=== PATIENT | female | born 1935 | race Caucasian/White ===

== ENCOUNTER → 2017-02-14 | Outpatient (CLI) | payer MEDICARE, OTHER | DX: M25.571 Pain in right ankle and joints of right foot (principal) ==

== ENCOUNTER 2017-03-04 08:35 | Day surgery (SDC) | payer MEDICARE, OTHER ==
[2017-03-04] VITALS (8 sets, daily range): BP systolic 136–175; BP diastolic 51–84
[~2017-03-04] VITALS: Ht 165.1 cm; Wt 93.0 kg
[2017-03-04] MEDS ORDERED: LEVO100T7 PO (08:45)
[2017-03-04] MEDS ORDERED: LATA2.5D5 OU (08:45)
--- NOTE | 2017-03-04 08:54 | ED Chest Pain ---
General Chief Complaint: Chest Pain Stated Complaint: CHEST PAIN Nursing Triage Note: AMBULATED TO ROOM [address] ROBERTS OFFICE. TOLD TO COME OUT HERE BECAUSE SHE MIGHT BE HAVING A HEART ATTACK. PT STATES SHE WOKE UP THIS AM WITH LEFT ARM PAIN/NUMBESS ET RIGHT JAW PAIN. DENIES CHEST PAIN. STATES IT HURTS TO SWALLOW AND HAD SOME NAUSEA THIS AM. Nursing Sepsis Screen: No Definite Risk Source: patient, family (son-in-law) Exam Limitations: no limitations History of Present Illness Time seen by provider: 08:47 Initial Comments Patient presents with her son-in-law from home where she started having chest pain in her left shoulder which radiated to her right jaw this morning at 5:00. It is mild in nature and been going on constantly. It does not radiate anywhere else. She is not having any nausea or diaphoresis. She has no history of heart disease. She does have hypothyroidism which she takes her thyroid medicine for. She does not smoke drink or use any kind of drugs. She does not have known blood pressure problems. Her doctor is Dr. MONTESINOS who found a heart murmur and had set her up for an echocardiogram but has not received yet. Allergies and Home Medications Allergies Coded Allergies: nut - unspecified (Verified Allergy, Severe, HIVES, EDEMA, 03/04/17) Home Medications Latanoprost 2.5 Ml Drops, for 90 Days, (Reported) Levothyroxine Sodium 100 Mcg Tablet, for 90 Days, (Reported) Review of Systems Constitutional: No chills, No diaphoresis, No fever, No malaise EENTM: No Blurred Vision, No Double Vision Respiratory: Denies Cough, Denies Shortness of Air Cardiovascular: See HPI, Denies Edema, Denies Irregular Heart Rate, Denies Lightheadedness, Denies Palpitations, Denies Syncope Gastrointestinal: Denies Abdominal Pain, Denies Constipated, Denies Nausea Genitourinary: Denies Burning, Denies Discharge Musculoskeletal: back pain (chronic), No joint pain Skin: No pruritus, No rash Psychiatric/Neurological: Denies Headache, Denies Numbness Past Gjccmiy-Ykhvec-Egxsta Hx Patient Social History Alcohol Use: Denies Use Recreational Drug Use: No Smoking Status: Never a Smoker Recent Foreign Travel: No Contact w/Someone Who Travel: No Recent Infectious Disease Expo: No Surgeries Surgeries: Section, Hysterectomy, Orthopedic Cardiovascular Cardiac Disorders: Heart Murmur Endocrine Endocrine Disorders: Hypothyroidsim HEENT HEENT Disorders: Glaucoma Hearing Impairment: Hard of Hearing Physical Exam Vital Signs Vital Sign - Last 12Hours 03/04/17 03/04/17 08:35 08:56 Temp 98.0 Pulse 55 Resp 18 B/P (MAP) 173/65 Pulse Ox 62 O2 Delivery Nasal Cannula O2 Flow Rate 2.00 Capillary Refill : Less Than 3 Seconds General Appearance: No Apparent Distress, WD/WN HEENT: PERRL/EOMI, Pharynx Normal Neck: Normal Inspection, Supple Respiratory: Chest Non Tender, Lungs Clear, Normal Breath Sounds, No Accessory Muscle Use Cardiovascular: Regular Rate, Rhythm, No Edema, Normal Peripheral Pulses, Systolic Murmur Gastrointestinal: Normal Bowel Sounds, Non Tender, Soft Extremity: Normal Capillary Refill, Normal Inspection, No Pedal Edema Neurologic/Psychiatric: Alert, Oriented x3, No Motor/Sensory Deficits, Normal Mood/Affect, district branch manager II-XII Norm as Tested Skin: Normal Color, Warm/Dry Lymphatic: No Adenopathy Progress/Results/Core Measures Results/Orders Lab Results Laboratory Tests Test 03/04/17 08:50 Range/Units White Blood Count 5.5 4.3-11.0 10^3/uL Red Blood Count 4.24 L 4.35-5.85 10^6/uL Hemoglobin 13.4 11.5-16.0 G/DL Hematocrit 40 35-52 % Mean Corpuscular Volume 94 80-99 FL Mean Corpuscular Hemoglobin 32 25-34 PG Mean Corpuscular Hemoglobin Concent 34 32-36 G/DL Red Cell Distribution Width 14.0 10.0-14.5 % Platelet Count 159 130-400 10^3/uL Mean Platelet Volume 10.0 7.4-10.4 FL Neutrophils (%) (Auto) 62 42-75 % Lymphocytes (%) (Auto) 23 12-44 % Monocytes (%) (Auto) 8 0-12 % Eosinophils (%) (Auto) 6 0-10 % Basophils (%) (Auto) 1 0-10 % Neutrophils # (Auto) 3.4 1.8-7.8 X 10^3 Lymphocytes # (Auto) 1.3 1.0-4.0 X 10^3 Monocytes # (Auto) 0.5 0.0-1.0 X 10^3 Eosinophils # (Auto) 0.3 0.0-0.3 10^3/uL Basophils # (Auto) 0.0 0.0-0.1 10^3/uL Prothrombin Time 12.5 12.2-14.7 SEC INR Comment 1.0 0.8-1.4 Activated Partial Thromboplast Time 30 24-35 SEC D-Dimer 1.05 H 0.00-0.49 UG/ML Sodium Level 138 135-145 MMOL/L Potassium Level 4.3 3.6-5.0 MMOL/L Chloride Level 106 98-107 MMOL/L Carbon Dioxide Level 24 21-32 MMOL/L Anion Gap 8 5-14 MMOL/L Blood Urea Nitrogen 19 H 7-18 MG/DL Creatinine 0.72 0.60-1.30 MG/DL Estimat Glomerular Filtration Rate > 60 BUN/Creatinine Ratio 26 Glucose Level 111 H 70-105 MG/DL Calcium Level 8.9 8.5-10.1 MG/DL Magnesium Level 2.1 1.8-2.4 MG/DL Total Bilirubin 0.6 0.1-1.0 MG/DL Aspartate Amino Transf (AST/SGOT) 27 5-34 U/L Alanine Aminotransferase (ALT/SGPT) 20 0-55 U/L Alkaline Phosphatase 69 40-136 U/L Myoglobin 38.3 10.0-92.0 NG/ML Troponin I < 0.30 <0.30 NG/ML B-Type Natriuretic Peptide 336.4 H <100.0 PG/ML Total Protein 6.7 6.4-8.2 GM/DL Albumin 3.7 3.2-4.5 GM/DL My Orders Orders - TAMICAKEVIN J Cbc With Automated Diff (03/04/17 08:54) Magnesium (03/04/17 08:54) Chest 1 View, Ap/Pa Only (03/04/17 08:54) Ekg Tracing (03/04/17 08:54) Cardiac Profile 1 (03/04/17 08:54) Comprehensive Metabolic Panel (03/04/17 08:54) Myoglobin Serum (03/04/17 08:54) Protime With Inr (03/04/17 08:54) Partial Thromboplastin Time (03/04/17 08:54) O2 (03/04/17 08:54) Monitor-Rhythm Ecg Trace Only (03/04/17 08:54) Lipid Panel (03/05/17 06:00) Aspirin Tablet (Aspirin Tablet) (03/04/17 09:00) Rx-Nitroglycerin Sl Tabs (Rx-Nitrostat S (03/04/17 09:00) Saline Lock/Iv-Start (03/04/17 08:54) Fibrin Degradation Products (03/04/17 08:54) Ct Head Wo (03/04/17 09:35) BNP (03/04/17 09:42) Medications Given in ED Current Medications Medications Dose Ordered Sig/Ravinder Route Start Time Stop Time Status Last Admin Dose Admin Aspirin 325 mg ONCE ONCE PO 03/04/17 09:00 03/04/17 09:01 DC 03/04/17 09:15 325 MG Nitroglycerin 0.4 mg PRN PRN SL 03/04/17 09:00 03/04/17 09:17 0.4 MG Vital Signs/I&O Vital Sign - Last 12Hours 03/04/17 03/04/17 08:35 08:56 Temp 98.0 Pulse 55 Resp 18 B/P (MAP) 173/65 Pulse Ox 62 O2 Delivery Nasal Cannula O2 Flow Rate 2.00 Blood Pressure Mean: 101 Progress Note #1: Time: 09:36 Progress Note Patient's son-in-law calls me to the room because of patient's having some pain in the ball of her right foot. She says she's had this chronic pain in the past but just got suddenly worse after taking the nitroglycerin. She also remarked that she was having a difficult time this morning with drinking solids and swallowing her own spit. Neurologic exam of cranial nerves unremarkable. We'll go ahead and get a CAT scan of her head. Progress Note #2: Time: 10:[address] head was unremarkable. However the patient also relates she's had Schatzki's rings dilated in the past. The timing is uncanny. Her d-dimer is mildly elevated but also her BNP is elevated she appears to be in heart failure. We'll let her go to the hospital to get this treated. We'll give Lasix. ECG Initial ECG Impression Date: Mar 04, 2017 Initial ECG Impression Time: 08:38 Initial ECG Rate: 56 Initial ECG Rhythm: S.Jair Initial ECG Intervals: Normal Initial ECG Impression: Sinus Bradycardia Initial ECG Comparisson: No Previous ECG Available Comment Marginally elongated QRS complexes. No ST elevation or depression noted. Diagnostic Imaging Diagonstic Imaging: Xray Plain Films/CT/US/NM/MRI: chest [facility] [place] [place] NAME: DAVID IBRAHIM [facility] REC#: [id number] PT STATUS: REG ER : 1935 PHYSICIAN: KEVIN DAVEY MD ADMIT DATE: 03/04/17/ER Draft Date of Exam:03/04/17 CHEST 1 VIEW, AP/PA ONLY INDICATION: Left arm heaviness and tingling and right jaw pain. Frontal chest obtained at 9:08 a.m. The heart is mildly enlarged. There is central vascular congestion. There is no consolidation or pneumothorax or pleural fluid. IMPRESSION: Cardiomegaly and central vascular congestion. No acute infiltrate or pneumothorax or pleural fluid. Dictated on workstation # [id number] Dict: 03/04/17916 Trans: 03/04/1720 JUANITA [id number] Interpreted by: NASH CAMPO MD Electronically signed by: Reviewed: Reviewed by Me Diagonstic Imaging: CT Plain Films/CT/US/NM/MRI: head Comments [facility] [place] [place] NAME: DAVID IBRAHIM [facility] REC#: [id number] PT STATUS: REG ER : 1935 PHYSICIAN: KEVIN DAVEY MD ADMIT DATE: 03/04/17/ER Draft Date of Exam:03/04/17 CT HEAD WO INDICATION: Left arm numbness and right jaw pain and nausea. TECHNIQUE: A noncontrast brain CT was performed. FINDINGS: There are no extra-axial fluid collections. No intracranial hemorrhage. No intracranial mass or mass effect. No midline shift. The ventricles are normal in size and position. There are patchy low-density changes in the deep white matter, compatible with chronic ischemic change. There is no definite acute appearing abnormality. The calvarial windows appear unremarkable. IMPRESSION: Mild chronic changes in the deep white matter, compatible with chronic ischemic change. No acute hemorrhage, mass effect, or acute intracranial process. Dictated on workstation # [id number] Dict: 03/04/17 1027 Trans: 03/04/17 1031 [id number] Interpreted by: NASH CAMPO MD Electronically signed by: Departure Communication Time/Spoke to Admitting Phy: 10:45 Communication 1050: Called Dr Montesinos and left message 1054: Discussed case we'll give her IV Lasix now and get echocardiogram set up. Impression Impression: Primary Impression: Chest pain Qualified Codes: R07.2 - Precordial pain Disposition: ADMITTED INPATIENT Condition: Stable (ERASED) Decision to Admit Reason: Admit from ER (General) Decision to Admit/Date: Mar 04, 2017 Time/Decision to Admit Time: 10:57 Departure-Patient Inst. Referrals: DARRELL MONTESINOS DO (PCP/Family) Primary Care Physician Copy Copies To 1: DARRELL MONTESINOS TITUS J Mar 04, 2017 08:54
[2017-03-04] MEDS ORDERED: ASPIRIN 325 MG (5 GR) TABLET PO ONE (09:00)
[2017-03-04] MEDS ORDERED: RX-NITROGLYCERIN 0.4 MG TAB BTL 25'S SL PRN (09:00)
[2017-03-04 09:01] LABS: BASOPHILS % (AUTO) 1 % (0-10); EOSINOPHILS # (AUTO) 0.3 10^3/uL (0.0-0.3); EOSINOPHILS % (AUTO) 6 % (0-10); LYMPHOCYTES # (AUTO) 1.3 X 10^3 (1.0-4.0); LYMPHOCYTES % (AUTO) 23 % (12-44); MEAN CORPUSCULAR HEMOGLOBIN 32 PG (25-34); MEAN CORPUSCULAR HGB CONC 34 G/DL (32-36); MEAN CORPUSCULAR VOLUME 94 FL (80-99); MONOCYTES # (AUTO) 0.5 X 10^3 (0.0-1.0); MONOCYTES % (AUTO) 8 % (0-12); NEUTROPHILS # (AUTO) 3.4 X 10^3 (1.8-7.8); NEUTROPHILS % (AUTO) 62 % (42-75); PLATELET COUNT 159 10^3/uL (130-400); RED BLOOD COUNT 4.24 10^6/uL (4.35-5.85); WHITE BLOOD COUNT 5.5 10^3/uL (4.3-11.0)
[2017-03-04 09:12] LABS: PROTHROMBIN TIME PATIENT 12.5 SEC (12.2-14.7)
[2017-03-04 09:21] LABS: ALANINE AMINOTRANSFERASE 20 U/L (0-55); ALBUMIN 3.7 GM/DL (3.2-4.5); ANION GAP 8 MMOL/L (5-14); ASPARTATE AMINO TRANSFERASE 27 U/L (5-34); BILIRUBIN,TOTAL 0.6 MG/DL (0.1-1.0); BLOOD UREA NITROGEN 19 MG/DL (7-18); BUN/CREATININE RATIO 26; CALCIUM 8.9 MG/DL (8.5-10.1); CARBON DIOXIDE 24 MMOL/L (21-32); CHLORIDE 106 MMOL/L (98-107); CREATININE SERUM 0.72 MG/DL (0.60-1.30); GFR ESTIMATED > 60; GLUCOSE 111 MG/DL (70-105); MAGNESIUM 2.1 MG/DL (1.8-2.4); POTASSIUM 4.3 MMOL/L (3.6-5.0); SODIUM 138 MMOL/L (135-145); TOTAL PROTEIN 6.7 GM/DL (6.4-8.2)
--- NOTE | 2017-03-04 09:21 | Diagnostic Imaging Report ---
INDICATION: Left arm heaviness and tingling and right jaw pain. Frontal chest obtained at 9:08 a.m. The heart is mildly enlarged. There is central vascular congestion. There is no consolidation or pneumothorax or pleural fluid. IMPRESSION: Cardiomegaly and central vascular congestion. No acute infiltrate or pneumothorax or pleural fluid. Dictated by: Dictated on workstation # [id number]
[2017-03-04 09:27] LABS: MYOGLOBIN SERUM 38.3 NG/ML (10.0-92.0)
--- NOTE | 2017-03-04 10:31 | Diagnostic Imaging Report ---
INDICATION: Left arm numbness and right jaw pain and nausea. TECHNIQUE: A noncontrast brain CT was performed. FINDINGS: There are no extra-axial fluid collections. No intracranial hemorrhage. No intracranial mass or mass effect. No midline shift. The ventricles are normal in size and position. There are patchy low-density changes in the deep white matter, compatible with chronic ischemic change. There is no definite acute appearing abnormality. The calvarial windows appear unremarkable. IMPRESSION: Mild chronic changes in the deep white matter, compatible with chronic ischemic change. No acute hemorrhage, mass effect, or acute intracranial process. Dictated by: Dictated on workstation # [id number]
[2017-03-04] MEDS ORDERED: CALC-927 PO (11:06)
[2017-03-04] MEDS ORDERED: GLUC1CAP37 PO (11:06)
[2017-03-04] MEDS ORDERED: CALC-696 PO (11:06)
[2017-03-04] MEDS ORDERED: VIT1CAPS9 PO (11:06)
[2017-03-04] MEDS ORDERED: MULT-878 PO (11:06)
[2017-03-04] MEDS ORDERED: UBID1CAP53 PO (11:06)
[2017-03-04] MEDS ORDERED: FUROSEMIDE 40 MG/4 ML INJ (LASIX) IVP NR ×2 (12:26→13:52)
[2017-03-04] MEDS ORDERED: PATIENT MAY USE OWN MEDS, ALL MC SCH (13:45)
[2017-03-04] MEDS ORDERED: NITROGLYCERIN SUBLINGUAL 0.4 MG TAB (NITROSTAT) SL NR (14:03)
[2017-03-04] MEDS ORDERED: ACETAMINOPHEN 500 MG TAB (TYLENOL) PO NR (14:03)
[2017-03-04] MEDS ORDERED: NS IV 1000 ML 1,000 ML IV SCH (17:00)
--- NOTE | 2017-03-04 17:05 | Consultation-Cardiology ---
HPI-Cardiology Cardiology Consultation Date of Consultation 03/04/17 Date of Admission Time Seen by Provider: 17:00 Indication: chest pain HPI 81 years old lady with history of hypertension, hyperlipidemia, family history of heart disease. Started having left arm heaviness and numbness persisted the whole day associated with right jaw pain, reporting some heaviness in the mid retrosternal area not radiating, reporting improvement after receiving sublingual nitroglycerin, pain did not resolve fully until the second sublingual nitroglycerin. Denied any previous cardiac history. She has baseline EKG abnormality. Fairly anxious, had surgery done to her left shoulder , unable to lift her arm over her head, claustrophobia, unable to lay down under SPECT camera. We discussed the management plan discussed the possibility of stress test versus cardiac catheterization, patient agreed on proceeding with cardiac catheterization. Home Medications & Allergies Allergies: Coded Allergies: nut - unspecified (Verified Allergy, Severe, HIVES, EDEMA, 03/04/17) Home Medication List Reviewed: Yes EVL-Kuopgq-Wcjgox Hx Patient Social History Marital Status: Employed/Student: retired Alcohol Use: Denies Use Recreational Drug Use: No Smoking Status: Never a Smoker Recent Foreign Travel: No Recent Infectious Disease Expo: No Recent Hopitalizations: No Physical Abuse Screen: No Sexual Abuse: No Past Medical History past medical history as discussed below Family Medical History Family Medical Hx son of myocardial infarction during cardiac catheterization Constitutional: see HPI, malaise, weakness EENTM: no symptoms reported, see HPI Respiratory: see HPI, No cough, No dyspnea on exertion, No hemoptysis, No orthopnea, No phlegm, short of breath, No stridor, No wheezing, No other Cardiovascular: see HPI, chest pain, No edema, No Hx of Intervention, No palpitations, No syncope, No vascular heart diseas, No other Gastrointestinal: no symptoms reported, see HPI Genitourinary: see HPI, incontinence (urge) Musculoskeletal: see HPI, joint pain (left shoulder pain), muscle pain Skin: no symptoms reported, see HPI Psychiatric/Neurological: See HPI, Anxiety Reviewed Test Results Reviewed Test Results Lab Laboratory Tests Test 03/04/17 08:50 03/04/17 14:03 Range/Units White Blood Count 5.5 4.3-11.0 10^3/uL Red Blood Count 4.24 L 4.35-5.85 10^6/uL Hemoglobin 13.4 11.5-16.0 G/DL Hematocrit 40 35-52 % Mean Corpuscular Volume 94 80-99 FL Mean Corpuscular Hemoglobin 32 25-34 PG Mean Corpuscular Hemoglobin Concent 34 32-36 G/DL Red Cell Distribution Width 14.0 10.0-14.5 % Platelet Count 159 130-400 10^3/uL Mean Platelet Volume 10.0 7.4-10.4 FL Neutrophils (%) (Auto) 62 42-75 % Lymphocytes (%) (Auto) 23 12-44 % Monocytes (%) (Auto) 8 0-12 % Eosinophils (%) (Auto) 6 0-10 % Basophils (%) (Auto) 1 0-10 % Neutrophils # (Auto) 3.4 1.8-7.8 X 10^3 Lymphocytes # (Auto) 1.3 1.0-4.0 X 10^3 Monocytes # (Auto) 0.5 0.0-1.0 X 10^3 Eosinophils # (Auto) 0.3 0.0-0.3 10^3/uL Basophils # (Auto) 0.0 0.0-0.1 10^3/uL Prothrombin Time 12.5 12.2-14.7 SEC INR Comment 1.0 0.8-1.4 Activated Partial Thromboplast Time 30 24-35 SEC D-Dimer 1.05 H 0.00-0.49 UG/ML Sodium Level 138 135-145 MMOL/L Potassium Level 4.3 3.6-5.0 MMOL/L Chloride Level 106 98-107 MMOL/L Carbon Dioxide Level 24 21-32 MMOL/L Anion Gap 8 5-14 MMOL/L Blood Urea Nitrogen 19 H 7-18 MG/DL Creatinine 0.72 0.60-1.30 MG/DL Estimat Glomerular Filtration Rate > 60 BUN/Creatinine Ratio 26 Glucose Level 111 H 70-105 MG/DL Calcium Level 8.9 8.5-10.1 MG/DL Magnesium Level 2.1 1.8-2.4 MG/DL Total Bilirubin 0.6 0.1-1.0 MG/DL Aspartate Amino Transf (AST/SGOT) 27 5-34 U/L Alanine Aminotransferase (ALT/SGPT) 20 0-55 U/L Alkaline Phosphatase 69 40-136 U/L Myoglobin 38.3 10.0-92.0 NG/ML Troponin I < 0.30 < 0.30 <0.30 NG/ML B-Type Natriuretic Peptide 336.4 H <100.0 PG/ML Total Protein 6.7 6.4-8.2 GM/DL Albumin 3.7 3.2-4.5 GM/DL Physical Exam Vital Signs Vital Sign - Last 12Hours 03/04/17 03/04/17 08:35 08:56 Temp 98.0 Pulse 55 Resp 18 B/P (MAP) 173/65 Pulse Ox 62 O2 Delivery Nasal Cannula O2 Flow Rate 2.00 Capillary Refill : Less Than 3 Seconds General Appearance: No Apparent Distress, WD/WN Eyes: Bilateral Eye EOMI, Bilateral Eye Normal Inspection, Bilateral Eye PERRL HEENT: PERRL/EOMI, TMs Normal, Normal ENT Inspection, Pharynx Normal Neck: Full Range of Motion, Normal Inspection, Non Tender, Supple, Carotid Bruit Respiratory: Chest Non Tender, Lungs Clear, Normal Breath Sounds, No Accessory Muscle Use, No Respiratory Distress Cardiovascular: Regular Rate, Rhythm, No Edema, No Gallop, No JVD, No Murmur, Normal Peripheral Pulses Gastrointestinal: Normal Bowel Sounds, No Organomegaly, No Pulsatile Mass, Non Tender, Soft Back: Normal Inspection, No CVA Tenderness, No Vertebral Tenderness Extremity: Normal Capillary Refill, Normal Inspection, Normal Range of Motion, Non Tender, No Calf Tenderness, No Pedal Edema Neurologic/Psychiatric: Alert, Oriented x3, No Motor/Sensory Deficits, Normal Mood/Affect Skin: Normal Color, Warm/Dry Lymphatic: No Adenopathy A/P-Cardiology Admission Diagnosis chest pain nonspecific etiology Shortness of breath Hypertension Hyperlipidemia Assessment/Plan Chest pain nonspecific etiology, described it as heaviness in the retrosternal area, coincide with left shoulder and left arm numbness and heaviness and right jaw pain, improved after sublingual nitroglycerin, abnormal baseline EKG with IVCD, Cardec enzymes were normal. We discussed the possible to for cardiac catheterization versus stress test, patient and her daughter prefer to proceed with cardiac catheterization.next Generalized weakness, reporting some improvement Shortness of breath on exertion, worsening for the past month Hypertension, I will continue monitoring blood pressure and restart home medication Hyperlipidemia, monitor lipids History of esophageal stricture, history of esophageal dilation History of multiple orthopedic surgery, left shoulder surgery, bilateral hip surgery History of cataract surgeryX Strong family history of heart disease Clinical Quality Measures AMI/AHF: ASA po Prior to arrival: No DVT/VTE Risk/Contraindication: Risk Factor Score Per Nursin RFS Level Per Nursing on Admit: 3=High LYNNE BONE MD Mar 04, 2017 17:05
--- NOTE | 2017-03-04 17:05 | Cardiac Procedure Note-CS/ASA ---
Pre-Procedure Note Pre-Op Procedure Note H&P Reviewed The H&P was reviewed, patient examined and no changes noted. Date H&P Reviewed: Mar 04, 2017 Time H&P Reviewed: 17:05 Conscious Sedation Pre-Proced Time Reviewed: 17:05 ASA Class: 3 Airway Mallampati Classification: (kenaitze appropriate class) I. II. III, IV Lungs Heart ASA score ASA 1: a normal healthy patient ASA 2: a patient with a mild systemic disease (mid diabetes, controlled hypertension, obesity x ASA 3: a patient with a severe systemic disease that limits activity (angina , COPD, prior Myocardial infarction) ASA 4: a patient with an incapacitating disease that is a constant threat to life (CHF, renal failure) ASA 5: a moribund patient not expected to survive 24 hrs. (ruptured aneurysm) ASA 6: a declared brain patient whose organs are being harvested. For emergent operations, add the letter E after the classification Grade 3 Sedation Plan: Analgesia, Amnesia, Plan communicated to team members, Discussed options with patient/fam, Discussed risks with patient/fam Note The patient is an appropriate candidate to undergo the planned procedure, sedation, and anesthesia. The patient immediately re-assessed prior to indication. LYNNE BONE MD Mar 04, 2017 17:05
[2017-03-04] MEDS ORDERED: NS IV 1000 ML 0 ML ONE (17:13)
[2017-03-04] MEDS ORDERED: HEParin (CATH LAB) 2,000 ML IV ONE (17:13)
[2017-03-04] MEDS ORDERED: fentaNYL INJECTION 100 MCG/2 ML AMP ONE (17:25)
[2017-03-04] MEDS ORDERED: MIDAZOLAM 5 MG/5 ML (VERSED) VIAL ONE (17:25)
[2017-03-04] MEDS ORDERED: PATIENT MAY USE OWN MEDS, ALL PO SCH (18:15)
--- NOTE | 2017-03-04 18:19 | Cardiac Cath Report ---
Cardiac Cath Report Physician (s)/Nursing Technician (s) Physician LYNNE BONE MD Pre-Procedure Diagnosis Pre-Procedure Diagnosis: chest pain Post-Procedure Note Procedure Start Date: Mar 04, 2017 Procedure Start Time: 16:00 Name of Procedure: left heart catheterization, aortic arch angiogram Findings/Procedure Note PROCEDURE NOTE: After explaining the procedure to the patient, all pros and cons were explained, all questions were answered. The patient signed the consent and then she was placed on the cardiac catheterization laboratory. The patient was placed on the cardiac catheterization laboratory. Groin was prepped SL fashion local anesthesia was used. Sheath placed in the artery. Fallon right and left catheter were used to access the coronary system. Pigtail was used to access the left ventricular cavity. Aortic arch angiogram was [ done]. At the end of the procedure the sheath was removed. Closure device was [used ]. FINDINGS: Hemodynamics LV [ 154/15, end-diastolic pressure 15] Aorta [153/52 mean of 47 ] ANATOMY: Left Main [is normal ] Left Anterior Descending [has mild disease, nonobstructive disease ] Left Circumflex [dominant, mild disease at the distal left PDA, nonobstructive disease ] Right Coronory Artery [ small nondominant artery] LV Gram [was not done ] Aorta [aortic arch angiogram showed the artery is normal in size, no dissection or aneurysm, origin of the great neck vessels are normal with mild atherosclerotic disease ] CONCLUSION: 1. Mild coronary artery disease, dominant left circumflex system with 40 percent stenosis at the left PDA, nonobstructive disease 2. Normal left ventricular end-diastolic pressure 3. Normal aortic arch and great neck vessels DISCUSSION AND RECOMMENDATION: Patient has mild coronary artery disease nonobstructive disease, chest pain is probably noncardiac in nature Anesthesia Type: Conscious Sedation Estimated blood loss (mL): 25 Contrast Amount: 50 Total Radiation Dose: 451 Post-Procedure Diagnosis Post-operative diagnosis: Anterior chest wall pain Coronary artery disease Hypertension Hyperlipidemia LYNNE BONE MD Mar 04, 2017 18:19
[2017-03-04] MEDS ORDERED: PANTOPRAZOLE 40 MG/10 ML (PROTONIX) VIAL IV NR (18:30)
--- NOTE | 2017-03-04 18:33 | History & Physicial ---
History of Present Illness History of Present Illness Reason for visit/HPI This is a 81 year old female who was brought to the emergency room with a 2 day history of left arm heaviness and numbness. She also reported some heaviness in her left upper chest. She also reported pain to her right jaw. She stated she felt weak when she walked. She was found to have pulmonary vascular congestion on CXR as well as an elevated BNP. It was decided to admit her for further evaluation and treatment with cardiology consultation. Date of Admission Mar 04, 2017 at 10:55 Date Seen by Provider: Mar 04, 2017 Time Seen by Provider: 13:45 I consulted on this patient on 03/04/17 18:28 Attending Physician Mel Montesinos DO Admitting Physician Mel Montesinos DO Consult Allergies and Home Medications Allergies Coded Allergies: nut - unspecified (Verified Allergy, Severe, HIVES, EDEMA, 03/04/17) Home Medications Calcium Carb/Mag Ox/Zinc Sulf 1 Each Tablet, 2 TAB PO 1200, (Reported) Calcium Citrate/Vitamin D3 1 Each Tablet, 2 TAB PO 1200, (Reported) Glucosa Cross 2Kcl/Chondroitin Cross 1 Each Capsule, 2 CAP PO 1200, (Reported) Latanoprost 2.5 Ml Drops, 1 DROP OU HS, (Reported) Levothyroxine Sodium 100 Mcg Tablet, 100 MCG PO DAILY, (Reported) Multivitamins-Min/FA/Ginkgo 1 Each Tablet, 1 TAB PO 1200, (Reported) Ubidecarenone/Vit E Acetate 1 Each Capsule, 1 CAP PO 1200, (Reported) Vit C/Vit E/Lutein/Min/[place]-3 1 Each Capsule, 1 CAP PO 1200, (Reported) Past Sllotyp-Yztzhi-Awdljw Hx Patient Social History Marrital Status: Employed/Student: retired Alcohol Use: Denies Use Recreational Drug Use: No Smoking Status: Never a Smoker Physical Abuse Screen: No Sexual Abuse: No Recent Foreign Travel: No Contact w/other who traveled: No Recent Hopitalizations: No Recent Infectious Disease Expo: No Seasonal Allergies Seasonal Allergies: No Surgeries Surgeries: Section, Hysterectomy, Orthopedic Cardiovascular Cardiac Disorders: Heart Murmur Endocrine Endocrine Disorders: Hypothyroidsim HEENT HEENT Disorders: Glaucoma Hearing Impairment: Hard of Hearing Constitutional: weakness EENTM: No blurred vision, No dental problems, No double vision, No ear discharge, No ear pain, No epistaxis, No eye pain, No hearing loss, No hoarseness, No mouth pain, No mouth swelling, No no symptoms reported, No nose congestion, No nose pain, No other, No see HPI, No tearing, No throat pain, No throat swelling, No vision loss Respiratory: dyspnea on exertion Cardiovascular: chest pain (left chest heaviness with left arm heaviness), edema Gastrointestinal: heartburn Genitourinary: No no symptoms reported, No see HPI, No decreased output, No discharge, No dysuria, No frequency, No hematuria, No hesitancy, No incontinence , No nocturia, No pain, No other Musculoskeletal: joint pain (left shoulder), muscle weakness Skin: lesions (recent removal of ankle lesion) Psychiatric/Neurological: Anxiety, Numbness (left arm), Weakness Physical Exam Vital Signs Vital Sign - Last 12Hours 03/04/17 03/04/17 08:35 08:56 Temp 98.0 Pulse 55 Resp 18 B/P (MAP) 173/65 Pulse Ox 62 O2 Delivery Nasal Cannula O2 Flow Rate 2.00 Capillary Refill : Less Than 3 Seconds General Appearance: No Apparent Distress HEENT: Normal ENT Inspection Neck: Supple Respiratory: Lungs Clear Cardiovascular: Regular Rate, Rhythm, Systolic Murmur Gastrointestinal: Normal Bowel Sounds, Soft Rectal: Deferred, Tenderness (RUQ and epigastric) Back: No CVA Tenderness Extremity: Non Tender, No Calf Tenderness, Pedal Edema (nonpitting) Neurologic/Psychiatric: Alert, Oriented x3, Motor Weakness (generalized) Skin: Normal Color, Warm/Dry Comments Laboratory Tests 03/04/17 08:50: White Blood Count 5.5, Red Blood Count 4.24L, Hemoglobin 13.4, Hematocrit 40, Mean Corpuscular Volume 94, Mean Corpuscular Hemoglobin 32, Mean Corpuscular Hemoglobin Concent 34, Red Cell Distribution Width 14.0, Platelet Count 159, Mean Platelet Volume 10.0, Neutrophils (%) (Auto) 62, Lymphocytes (%) (Auto) 23 , Monocytes (%) (Auto) 8, Eosinophils (%) (Auto) 6, Basophils (%) (Auto) 1, Neutrophils # (Auto) 3.4, Lymphocytes # (Auto) 1.3, Monocytes # (Auto) 0.5, Eosinophils # (Auto) 0.3, Basophils # (Auto) 0.0, Prothrombin Time 12.5, INR Comment 1.0, Activated Partial Thromboplast Time 30, D-Dimer 1.05H, Sodium Level 138, Potassium Level 4.3, Chloride Level 106, Carbon Dioxide Level 24, Anion Gap 8, Blood Urea Nitrogen 19H, Creatinine 0.72, Estimat Glomerular Filtration Rate > 60, BUN/Creatinine Ratio 26, Glucose Level 111H, Calcium Level 8.9, Magnesium Level 2.1, Total Bilirubin 0.6, Aspartate Amino Transf (AST /SGOT) 27, Alanine Aminotransferase (ALT/SGPT) 20, Alkaline Phosphatase 69, Myoglobin 38.3, Troponin I < 0.30, B-Type Natriuretic Peptide 336.4H, Total Protein 6.7, Albumin 3.7 03/04/17 14:03: Troponin I < 0.30 Assessment/Plan Assessment and Plan 1. Chest Pressure with Left Arm Heaviness--monitor on telemetry, repeat cardiac enzymes, nitro SL to see if relieves pain and if so will consider cardiac cath per cardiology 2. Pulmonary Edema with elevated BNP--check 2-D ECHO and IV lasix x1 3. Epigastric pain--cover with protonix for GI etiology 4. Hypertension--lasix and nitro and will add low dose Beta Geeta if BP still elevated 5. Hypothyroidism--resume home dose Problems: Clinical Quality Measures AMI/AHF: ASA po Prior to arrival: No DVT/VTE Risk/Contraindication: Risk Factor Score Per Nursin RFS Level Per Nursing on Admit: 3=High MEL MONTESINOS DO Mar 04, 2017 18:33
[2017-03-04] MEDS ORDERED: ACETAMINOPHEN 325 MG TABLET/CAPLET (TYLENOL) PO PRN (19:15)
[2017-03-04] MEDS ORDERED: LATANOPROST 0.005% (XALATAN) OPHTH SOLN 2.5 ML OU SCH (21:00)
[2017-03-04] MEDS: NS IV 1000 ML 1,000 ML IV SCH ×2 (21:04→23:52)
[2017-03-05 00:15] VITALS: BP 134/68
[2017-03-05 03:27] VITALS: BP 146/68
[2017-03-05 05:02] LABS: BASOPHILS % (AUTO) 1 % (0-10); EOSINOPHILS # (AUTO) 0.5 10^3/uL (0.0-0.3); EOSINOPHILS % (AUTO) 8 % (0-10); LYMPHOCYTES # (AUTO) 1.3 X 10^3 (1.0-4.0); LYMPHOCYTES % (AUTO) 22 % (12-44); MEAN CORPUSCULAR HEMOGLOBIN 32 PG (25-34); MEAN CORPUSCULAR HGB CONC 34 G/DL (32-36); MEAN CORPUSCULAR VOLUME 94 FL (80-99); MEAN PLATELET VOLUME 9.9 FL (7.4-10.4); MONOCYTES # (AUTO) 0.8 X 10^3 (0.0-1.0); MONOCYTES % (AUTO) 13 % (0-12); NEUTROPHILS # (AUTO) 3.2 X 10^3 (1.8-7.8); NEUTROPHILS % (AUTO) 56 % (42-75); PLATELET COUNT 147 10^3/uL (130-400); RED BLOOD COUNT 3.95 10^6/uL (4.35-5.85); WHITE BLOOD COUNT 5.8 10^3/uL (4.3-11.0)
[2017-03-05 05:26] LABS: CHOLESTEROL 193 MG/DL (< 200); DIRECT LDL 123 MG/DL (1-129); TRIGLYCERIDES 57 MG/DL (<150); VLDL CHOLESTEROL 11 MG/DL (5-40)
[2017-03-05 05:28] LABS: ALANINE AMINOTRANSFERASE 21 U/L (0-55); ALBUMIN 3.3 GM/DL (3.2-4.5); ANION GAP 7 MMOL/L (5-14); ASPARTATE AMINO TRANSFERASE 27 U/L (5-34); BILIRUBIN,TOTAL 0.7 MG/DL (0.1-1.0); BLOOD UREA NITROGEN 12 MG/DL (7-18); BUN/CREATININE RATIO 19; CALCIUM 8.5 MG/DL (8.5-10.1); CARBON DIOXIDE 23 MMOL/L (21-32); CHLORIDE 109 MMOL/L (98-107); CREATININE SERUM 0.64 MG/DL (0.60-1.30); GFR ESTIMATED > 60; GLUCOSE 96 MG/DL (70-105); POTASSIUM 3.7 MMOL/L (3.6-5.0); SODIUM 139 MMOL/L (135-145); TOTAL PROTEIN 5.9 GM/DL (6.4-8.2)
[2017-03-05] MEDS ORDERED: CATHETER FLUSH 10 ML SYR IV PRN (06:45)
[2017-03-05 08:00] VITALS: BP 119/71
[2017-03-05] MEDS ORDERED: PANTOPRAZOLE 40 MG/10 ML (PROTONIX) VIAL IV SCH (09:00)
[2017-03-05] MEDS ORDERED: LEVOTHYROXINE 100 MCG (LEVOTHROID) TAB PO SCH (09:00)
[2017-03-05 12:00] VITALS: BP 145/74
--- NOTE | 2017-03-05 12:28 | Cardiology Progress Note ---
Subjective Date Seen by Provider: Mar 05, 2017 Time Seen by Provider: 12:27 Subjective/Events-last exam patient is sitting in a chair, feeling better, denied any chest pain or shortness of breath. Denied any palpitation. Groin is healing well. Review of Systems General: No Chills, No Night Sweats, No Fatigue, No Malaise, No Appetite, No Other HEENT: No Head Aches, No Visual Changes, No Eye Pain, No Ear Pain, No Dysphasia , No Sinus Congestion, No Post Nasal Drip, No Sore Throat, No Other Pulmonary: No Dyspnea, No Cough, No Pleuritic Chest Pain, No Other Cardiovascular: No: Chest Pain, Edema, Lt Headedness, Orthopnea, Other, Palpitations, Paroxysmal Noc. Dyspnea Objective-Cardiology Exam Last Set of Vital Signs Vital Signs 03/04/17 03/05/17 08:56 12:00 Temp 99.3 Pulse 56 Resp 20 B/P (MAP) 145/74 Pulse Ox 98 O2 Delivery Room Air O2 Flow Rate 2.00 Capillary Refill : Less Than 3 Seconds I&O Bad tableGeneral: Alert, Oriented X3, Cooperative HEENT: Atraumatic, PERRLA Neck: Supple, No JVD, No Thyromegaly Lungs: Clear to Auscultation, Normal Air Movement Heart: Regular Rate, Normal S1, Normal S2, No Murmurs Abdomen: Normal Bowel Sounds, Soft, No Tenderness, No Hepatosplenomegaly, No Masses Extremities: No Clubbing, No Cyanosis, No Edema, Normal Pulses, No Tenderness/ Swelling Skin: No Rashes, No Breakdown, No Significant Lesion Neuro: Normal Gait, Normal Speech, Strength at 5/5 X4 Ext, Normal Tone, Sensation Intact Psych/Mental Status: Mental Status NL, Mood NL Results Lab Laboratory Tests 03/05/17 04:43 A/P-Cardiology Admission Diagnosis chest pain nonspecific etiology Shortness of breath Hypertension Hyperlipidemia Assessment/Plan Chest pain nonspecific etiology, atypical in presentation, Cardec catheterization showed mild coronary artery disease nonobstructive disease Generalized weakness, reporting some improvement Shortness of breath on exertion,mild elevation in BNP, normal left ventricular systolic function, diastolic dysfunction is noted by echo. Cannot tolerate beta blockers due to bradycardia. I will use low-dose LUIS ARMANDO inhibitor and monitor her tolerance and response, I'm hesitant to use diuretic due to the incontinence. Hypertension, I will start lisinopril 5 mg daily and monitor her tolerance and response as an outpatient Sinus bradycardia. Cannot tolerate beta blockers Hyperlipidemia, monitor lipids History of esophageal stricture, history of esophageal dilation History of multiple orthopedic surgery, left shoulder surgery, bilateral hip surgery History of cataract surgery Strong family history of heart disease Clinical Quality Measures AMI/AHF: ASA po Prior to arrival: No DVT/VTE Risk/Contraindication: Risk Factor Score Per Nursin RFS Level Per Nursing on Admit: 3=High LYNNE BONE MD Mar 05, 2017 12:28
[2017-03-05] MEDS ORDERED: lisINopril 5 MG (PRINIVIL) TABLET PO SCH (12:30)
--- NOTE | 2017-03-05 13:49 | Diagnostic Imaging Report ---
PROCEDURE: US Carotid Duplex Bilateral. TECHNIQUE: Multiple real-time grayscale images were obtained over the carotid arteries in various projections bilaterally. Additional duplex Doppler and color Doppler images were also obtained. INDICATION: Dysphasia. FINDINGS: The bilateral peak common, internal and external carotid arterial systolic velocities were unremarkable. There is mild to moderate left and mild right carotid plaquing at the bulbs and bifurcations. Normal color Doppler laminar blood flow however is maintained and there were no findings of a hemodynamically significant degree of arterial stenosis. Vertebral flow is in the antegrade direction bilaterally. IMPRESSION: Bilateral plaque, left greater than right without evidence for ulceration or hemodynamically significant stenosis. Dictated by: Dictated on workstation # [id number]
[2017-03-05] MEDS ORDERED: PANT40VI IV (14:59)
[2017-03-05] MEDS: NS IV 1000 ML 1,000 ML IV SCH (14:59)
--- NOTE | 2017-03-05 15:01 | Discharge Inst-Simple/Standard ---
Discharge Inst-Standard Discharge Medications New, Converted or Re-Newed RX: Transmitted to Pharmacy Patient Instructions/Follow Up Plan of Care/Instructions/FU: Fwup 2 weeks Activity as Tolerated: Yes Discharge Diet: No Restrictions Planned Outpatient Orders/Ref. Pneu Vac Indicated: Yes DARRELL GONSALEZ DO Mar 05, 2017 15:01
[2017-03-05] MEDS ORDERED: LISI-556 PO (15:31)
[2017-03-05 16:50] VITALS: BP 145/74
== END 2017-03-05 14:59 | disposition home or self-care (01) ==
LOC: EDUNIT# 08:35 → ER 08:37 → UNDOADMOB 10:55 → 4TH 10:55 → UNDOADMOB 12:20 → SDC 12:20 → 4TH 12:20 → SDC 03-05 14:59 → 4TH 03-05 15:21 → UNDODISOB 03-05 16:15
PROVIDERS: ATTEND Family Medicine
DX: R07.89 Other chest pain (principal); I25.10 Atherosclerotic heart disease of native coronary artery without angina pectoris; J81.1 Chronic pulmonary edema; R10.13 Epigastric pain; I10 Essential (primary) hypertension; F40.240 Claustrophobia; E78.5 Hyperlipidemia, unspecified; E03.9 Hypothyroidism, unspecified; Z79.899 Other long term (current) drug therapy; Z82.49 Family history of ischemic heart disease and other diseases of the circulatory system
CPT/HCPCS: 36221; 36415; 70450; 71010; 80053; 80061; 83735; 83874; 83880; 84484; 85025; 85379; 85610; 85730; 93005; 93041; 93306; 93458; 93880; 94760; G0378

== ENCOUNTER 2017-11-15 13:27 | Inpatient (IN) | payer MEDICARE, OTHER ==
[~2017-11-15] VITALS: Ht 167.6 cm; Wt 90.7 kg
[~2017-11-15 13:27] MED LIST: CALC-696 PO; CALC-927 PO; DOCU100C37 PO; FAMO-119 PO; GLUC1CAP37 PO; LATA2.5D5 OU; LEVO100T7 PO; LISI-556 PO; LOSA25TA21 PO; MULT-878 PO; OXYC-471 PO; PANT40VI IV; RIVA10TA PO; UBID1CAP53 PO; VIT1CAPS9 PO
[2017-11-15] MEDS ORDERED: NS IV 1000 ML 1,000 ML IV ONE ×2 (13:58→17:14)
[2017-11-15] MEDS ORDERED: FAMOTIDINE 20MG/2ML IV (PEPCID) IV STA (13:58)
[2017-11-15] MEDS ORDERED: ONDANSETRON 4 MG/2 ML (SDV) Z0FRAN IVP ONE ×2 (14:00→17:15)
[2017-11-15 14:10] LABS: BASOPHILS % (AUTO) 0 % (0-10); EOSINOPHILS % (AUTO) 0 % (0-10); HEMATOCRIT 39 % (35-52); HEMOGLOBIN 13.5 G/DL (11.5-16.0); LYMPHOCYTES % (AUTO) 8 % (12-44); MEAN CORPUSCULAR HEMOGLOBIN 32 PG (25-34); MEAN CORPUSCULAR HGB CONC 35 G/DL (32-36); MEAN CORPUSCULAR VOLUME 92 FL (80-99); MEAN PLATELET VOLUME 9.8 FL (7.4-10.4); MONOCYTES % (AUTO) 8 % (0-12); NEUTROPHILS # (AUTO) 10.6 X 10^3 (1.8-7.8); NEUTROPHILS % (AUTO) 84 % (42-75); PLATELET COUNT 186 10^3/uL (130-400); RED BLOOD COUNT 4.22 10^6/uL (4.35-5.85); RED CELL DISTRIBUTION WIDTH 14.4 % (10.0-14.5); WHITE BLOOD COUNT 12.6 10^3/uL (4.3-11.0)
[2017-11-15 14:13] LABS: INR 1.6 (0.8-1.4); PROTHROMBIN TIME PATIENT 18.9 SEC (12.2-14.7)
[2017-11-15 14:20] LABS: ALANINE AMINOTRANSFERASE 16 U/L (0-55); ALKALINE PHOSPHATASE 84 U/L (40-136); BUN/CREATININE RATIO 16; CALCIUM 9.1 MG/DL (8.5-10.1); CARBON DIOXIDE 24 MMOL/L (21-32); CHLORIDE 100 MMOL/L (98-107); CREATINE KINASE 21 U/L (29-168); CREATININE SERUM 0.61 MG/DL (0.60-1.30); GFR ESTIMATED > 60; GLUCOSE 127 MG/DL (70-105); SODIUM 130 MMOL/L (135-145); TOTAL PROTEIN 7.2 GM/DL (6.4-8.2)
--- NOTE | 2017-11-15 14:21 | ED Abdominal Pain ---
General Chief Complaint: Abdominal/GI Problems Stated Complaint: LUQ PAIN Nursing Triage Note: PATIENT STATES THAT SHE HAS HAD LUQ PAIN SINCE YESTERDAY AFTERNOON. SHE IS ALSO HAVING N/V. Sepsis Screen: No Definite Risk Source of Information: Patient, Other (report from [place] staff) Exam Limitations: No Limitations History of Present Illness Date Seen by Provider: Nov 15, 2017 Time Seen by Provider: 13:30 Initial Comments 82-year-old female patient presents to the emergency department via [facility] from [facility] complaining of epigastric pain radiating into the left upper quadrant, down the lower abdomen, up into the chest, and into the back beginning yesterday. Today unable to keep anything down. Denies fevers or chills. Patient c/o headache today from the vomiting and dry heaves. Timing/Duration: Getting Worse, Other (onset yesterday) Severity/Quality: Aching, Cramping, Sharp (intermittently sharp) Activities at Onset: None Modifying Factors: Worsens With Breathing, Worsens With Coughing, Worsens With Eating, Worsens With Movement, Worsens With Palpation, Worsens With Vomiting Allergies and Home Medications Allergies Coded Allergies: nut - unspecified (Verified Allergy, Severe, HIVES, EDEMA, 03/04/17) Home Medications Calcium Carb/Mag Ox/Zinc Sulf 1 Each Tablet, 1 TAB PO 1200 Prescribed by: DARRELL GONSALEZ on 09/24/17 1258 Calcium Citrate/Vitamin D3 1 Each Tablet, 1 TAB PO 1200 Prescribed by: DARRELL GONSALEZ on 09/24/17 1258 Docusate Sodium 100 Mg Capsule, 100 MG PO BID Prescribed by: DARRELL GONSALEZ on 09/24/17 1258 Famotidine 20 Mg Tablet, 20 MG PO DAILY Prescribed by: DARRELL GONSALEZ on 09/24/17 1258 Latanoprost 2.5 Ml Drops, 1 DROP OU HS, (Reported) Levothyroxine Sodium 100 Mcg Tablet, 100 MCG PO DAILY, (Reported) Losartan Potassium 25 Mg Tablet, 25 MG PO DAILY, (Reported) Mag Hydrox/Al Hydrox/Simeth 30 Ml Oral.susp, 20 ML PO Q4H PRN for INDIGESTION, ( Reported) Magnesium Hydroxide 400 Mg/5 Ml Oral.susp, 400 MG PO DAILY PRN for CONSTIPATION- 2ND LINE, (Reported) Multivitamins-Min/FA/Ginkgo 1 Each Tablet, 1 TAB PO 1200, (Reported) Oxycodone HCl/Acetaminophen 1 Each Tablet, 1-2 TAB PO Q4H PRN for PAIN-MODERATE TO SEVERE Prescribed by: DARRELL GONSALEZ on 09/24/17 1258 Rivaroxaban 10 Mg Tablet, 10 MG PO DAILY Prescribed by: DARRELL GONSALEZ on 09/24/17 1258 Ropinirole HCl 0.5 Mg Tablet, 0.5 MG PO HS, (Reported) Patient Home Medication List Home Medication List Reviewed: Yes Review of Systems Constitutional: No chills, No fever, No malaise EENTM: No Symptoms Reported Respiratory: Denies Cough, Denies Orthopnea, Denies Shortness of Air, Denies SOA With Exertion, Denies Wheezing Cardiovascular: See HPI, Chest Pain, Denies Edema, Denies Lightheadedness, Denies Palpitations (patient does have a history of atrial fibrillation) Gastrointestinal: See HPI, Denies Abdomen Distended, Abdominal Pain, Denies Blood Streaked Stools, Denies Constipated, Denies Diarrhea, Denies Difficulty Swallowing, Nausea, Poor Appetite, Poor Fluid Intake, Denies Rectal Bleeding, Vomiting Genitourinary: Denies Burning, Denies Frequency, Denies Flank Pain, Denies Hematuria, Denies Pain Musculoskeletal: see HPI, back pain Skin: no symptoms reported Psychiatric/Neurological: Headache, Denies Numbness, Denies Paresthesia, Denies Tingling, Denies Weakness Endocrine: No Symptoms Reported All Other Systems Reviewed Negative Unless Noted: Yes (Negative excepted noted.) Past Lgsfrlh-Zyvbho-Ebpltq Hx Patient Social History Alcohol Use: Denies Use Recreational Drug Use: No Smoking Status: Never a Smoker 2nd Hand Smoke Exposure: No Recent Foreign Travel: No Contact w/Someone Who Travel: No Recent Infectious Disease Expo: No Recent Hopitalizations: No Physical Abuse: No Sexual Abuse: No Immunizations Up To Date Date of Pneumonia Vaccine: Jun 11, 2017 Date of Influenza Vaccine: Jun 11, 2017 Seasonal Allergies Seasonal Allergies: No Surgeries History of Surgeries: Yes Surgeries: Section, Eye Surgery, Hysterectomy, Orthopedic Respiratory History of Respiratory Disorde: No Cardiovascular History of Cardiac Disorders: Yes Cardiac Disorders: Heart Murmur, Hypertension Neurological History of Neurological Disord: No Genitourinary History of Genitourinary Disor: No Gastrointestinal History of Gastrointestinal Di: No Musculoskeletal History of Musculoskeletal Dis: No Endocrine History of Endocrine Disorders: Yes Endocrine Disorders: Hypothyroidsim HEENT History of HEENT Disorders: Yes HEENT Disorders: Glaucoma Hearing Impairment: Hard of Hearing Cancer History of Cancer: No Psychosocial History of Psychiatric Problem: No Suicide Risk Score: 0 Integumentary History of Skin or Integumenta: No Blood Transfusions History of Blood Disorders: No Reviewed Nursing Assessment Reviewed/Agree w Nursing PMH: Yes Family Medical History Significant Family History: No Pertinent Family Hx Physical Exam Vital Signs VS - Last 72 Hours, by Label 11/15/17 11/15/17 13:30 15:44 Temp 97.8 97.8 Pulse 82 82 Resp 20 20 B/P (MAP) 167/79 (108) 167/79 Pulse Ox 98 98 O2 Delivery Room Air Capillary Refill : Less Than 3 Seconds General Appearance: WD/WN, no apparent distress HEENT: PERRL/EOMI, pharynx normal Neck: non-tender, supple, normal inspection Respiratory: lungs clear, normal breath sounds, no respiratory distress, no accessory muscle use, other (anterior chest tenderness palpation) Cardiovascular: normal peripheral pulses, regular rate, rhythm, no edema, no gallop, no murmur Gastrointestinal: normal bowel sounds, soft, no organomegaly, No distended, guarding, No rebound, tenderness (generalized tenderness with greatest tenderness in the bilateral upper quadrants and suprapubic) Extremities: no pedal edema, no calf tenderness, normal capillary refill Back: normal inspection, no vertebral tenderness, CVA tenderness (R), No CVA tenderness (L) Neurologic/Psychiatric: slinger sequins II-XII nml as tested, no motor/sensory deficits, alert, normal mood/affect, oriented x 3 Skin: normal color, warm/dry Focused Exam Evaluation Lactate Level Laboratory Tests 11/15/17 13:49: Lactic Acid Level 1.00 Lactic Acid Level Laboratory Tests Test 11/15/17 13:49 Lactic Acid Level 1.00 MMOL/L (0.50-2.00) Progress/Results/Core Measures Results/Orders Lab Results Laboratory Tests Test 11/15/17 13:49 11/15/17 15:50 Range/Units White Blood Count 12.6 H 4.3-11.0 10^3/uL Red Blood Count 4.22 L 4.35-5.85 10^6/uL Hemoglobin 13.5 11.5-16.0 G/DL Hematocrit 39 35-52 % Mean Corpuscular Volume 92 80-99 FL Mean Corpuscular Hemoglobin 32 25-34 PG Mean Corpuscular Hemoglobin Concent 35 32-36 G/DL Red Cell Distribution Width 14.4 10.0-14.5 % Platelet Count 186 130-400 10^3/uL Mean Platelet Volume 9.8 7.4-10.4 FL Neutrophils (%) (Auto) 84 H 42-75 % Lymphocytes (%) (Auto) 8 L 12-44 % Monocytes (%) (Auto) 8 0-12 % Eosinophils (%) (Auto) 0 0-10 % Basophils (%) (Auto) 0 0-10 % Neutrophils # (Auto) 10.6 H 1.8-7.8 X 10^3 Lymphocytes # (Auto) 1.0 1.0-4.0 X 10^3 Monocytes # (Auto) 1.0 0.0-1.0 X 10^3 Eosinophils # (Auto) 0.0 0.0-0.3 10^3/uL Basophils # (Auto) 0.0 0.0-0.1 10^3/uL Neutrophils % (Manual) 84 % Lymphocytes % (Manual) 10 % Monocytes % (Manual) 5 % Eosinophils % (Manual) 1 % Blood Morphology Comment NORMAL Prothrombin Time 18.9 H 12.2-14.7 SEC INR Comment 1.6 H 0.8-1.4 Activated Partial Thromboplast Time 40 H 24-35 SEC Sodium Level 130 L 135-145 MMOL/L Potassium Level 4.0 3.6-5.0 MMOL/L Chloride Level 100 98-107 MMOL/L Carbon Dioxide Level 24 21-32 MMOL/L Anion Gap 6 5-14 MMOL/L Blood Urea Nitrogen 10 7-18 MG/DL Creatinine 0.61 0.60-1.30 MG/DL Estimat Glomerular Filtration Rate > 60 BUN/Creatinine Ratio 16 Glucose Level 127 H 70-105 MG/DL Lactic Acid Level 1.00 0.50-2.00 MMOL/L Calcium Level 9.1 8.5-10.1 MG/DL Total Bilirubin 1.0 0.1-1.0 MG/DL Aspartate Amino Transf (AST/SGOT) 25 5-34 U/L Alanine Aminotransferase (ALT/SGPT) 16 0-55 U/L Alkaline Phosphatase 84 40-136 U/L Total Creatine Kinase 21 L 29-168 U/L Creatine Kinase MB 0.9 <6.6 NG/ML Myoglobin 26.6 10.0-92.0 NG/ML Troponin I < 0.30 <0.30 NG/ML C-Reactive Protein High Sensitivity 7.42 H 0.00-0.50 MG/DL B-Type Natriuretic Peptide 423.1 H <100.0 PG/ML Total Protein 7.2 6.4-8.2 GM/DL Albumin 4.0 3.2-4.5 GM/DL Lipase 486 H 8-78 U/L TSH [place] Testing 0.74 0.35-4.94 UIU/ML Urine Color YELLOW Urine Clarity CLOUDY H Urine pH 6.5 5-9 Urine Specific [place] 1.010 L 1.016-1.022 Urine Protein 2+ H NEGATIVE Urine Glucose (UA) NEGATIVE NEGATIVE Urine Ketones 3+ H NEGATIVE Urine Nitrite NEGATIVE NEGATIVE Urine Bilirubin NEGATIVE NEGATIVE Urine Urobilinogen NORMAL NORMAL MG/DL Urine Leukocyte Esterase 3+ H NEGATIVE Urine RBC (Auto) 3+ H NEGATIVE Urine RBC 5-10 H /HPF Urine WBC >100 H /HPF Urine Squamous Epithelial Cells 2-5 /HPF Urine Crystals NONE /LPF Urine Bacteria LARGE H /HPF Urine Casts NONE /LPF Urine Mucus NEGATIVE /LPF Urine Culture Indicated YES Micro Results Microbiology 11/15/17 Blood Culture - Preliminary, Resulted No growth 11/15/17 Blood Culture - Preliminary, Resulted No growth 11/15/17 Urine Culture - Preliminary, Resulted Klebsiella pneumoniae My Orders Orders - GAGANDEEP NEAL Saline Lock/Iv-Start (11/15/17 13:58) Ekg Tracing (11/15/17 13:58) Monitor-Rhythm Ecg Trace Only (11/15/17 13:58) BNP (11/15/17 13:58) Cbc With Automated Diff (11/15/17 13:58) Comprehensive Metabolic Panel (11/15/17 13:58) Creatine Kinase (11/15/17 13:58) Creatine Kinase Mb (11/15/17 13:58) Hs C Reactive Protein (11/15/17 13:58) Lactic Acid Analyzer (11/15/17 13:58) Protime With Inr (11/15/17 13:58) Partial Thromboplastin Time (11/15/17 13:58) Thyroid Analyzer (11/15/17 13:58) Troponin I (11/15/17 13:58) Ua Culture If Indicated (11/15/17 13:58) Blood Culture (11/15/17 13:58) Myoglobin Serum (11/15/17 13:58) Ns Iv 1000 Ml (Sodium Chloride 0.9%) (11/15/17 13:58) Ondansetron Injection (Zofran Injectio (11/15/17 14:00) Famotidine Injection (Pepcid Injection) (11/15/17 13:58) Ct Milla Chest/Noang Abd-Pelv W (11/15/17 14:03) Manual Differential (11/15/17 13:49) Fentanyl Injection (Sublimaze Injection (11/15/17 14:22) Ct Head Wo (11/15/17 14:27) Iohexol Injection (Omnipaque 350 Mg/Ml 1 (11/15/17 15:30) Ns (Ivpb) (Sodium Chloride 0.9%) (11/15/17 15:30) Pharmacy Communication (Pharmacy Communi (11/15/17 15:17) Us Gallbladder [id number] (11/15/17 15:55) Morphine Injection (Morphine Injection (11/15/17 16:07) Ondansetron Oral Dissolve Tab (Zofran (11/15/17 16:07) Urine Culture (11/15/17 15:50) Morphine Injection (Morphine Injection (11/15/17 17:14) Ns Iv 1000 Ml (Sodium Chloride 0.9%) (11/15/17 17:14) Ondansetron Injection (Zofran Injectio (11/15/17 17:15) Ceftriaxone Injection (Rocephin Injectio (11/15/17 17:15) Lipase (11/15/17 19:06) Medications Given in ED Vital Signs/I&O Vital Sign - Last 12Hours 11/15/17 11/15/17 13:30 15:44 Temp 97.8 97.8 Pulse 82 82 Resp 20 20 B/P (MAP) 167/79 (108) 167/79 Pulse Ox 98 98 O2 Delivery Room Air Blood Pressure Mean: 108 Diagnostic Imaging Diagonstic Imaging: CT Plain Films/CT/US/NM/MRI: chest, abdomen, pelvis Comments CTA chest: FINDINGS: The thoracic aorta is normal caliber. No dissection is identified. The pulmonary arterial system is without evidence of thromboembolism. No axillary, hilar or mediastinal lymphadenopathy is detected. No pericardial or pleural fluid is detected. Parenchymal evaluation does show some scarring or atelectasis in the lingula as well as bilateral lower lobes. IMPRESSION: No evidence of pulmonary embolism or thoracic aortic dissection. CT abdomen and pelvis: FINDINGS: No discrete liver mass is identified. There does appear to be moderate dilatation of the gallbladder. There is a questionable stone within the gallbladder. No definite wall thickening is seen. No biliary ductal dilatation is identified. The pancreas does show an ill-defined low- density mass in the pancreatic body measuring 2.2 x 1.6 cm. No pancreatic ductal dilatation is seen. Spleen is unremarkable. No adrenal mass is detected. Kidneys are unremarkable apart from a tiny nonobstructing calculus in the lower pole on the right. Aorta is heavily calcified but nonaneurysmal. There is some questionable wall thickening involving the second portion of the duodenum with minimal adjacent inflammatory stranding, seen images 36 through 43. No free fluid is identified. There is no bowel obstruction. Bowel loops are normal caliber. There is moderate stool in the right colon. A large amount of artifact is identified in the pelvis from patient's bilateral hip prostheses. IMPRESSION : 1. Low-density mass located in the pancreatic body, suspicious for pancreatic neoplasm. No pancreatic or biliary ductal dilatation is seen. 2. Moderate gallbladder distention with questionable gallstones. There is also some inflammation in the right upper quadrant adjacent to the gallbladder and second portion of the duodenum. Considerations include cholecystitis, peptic ulcer disease or perhaps mild pancreatitis. Gallbladder ultrasound would be useful for further evaluation. Results were discussed with Gagandeep Neal of the emergency department prior to this dictation. Dictated on workstation # [id number] Reviewed: Reviewed by Me (findings discussed with Dr. Turcios and the radiology report reviewed by me) Diagonstic Imaging: CT Plain Films/CT/US/NM/MRI: head Comments INDICATION: Headache. Comparison is made with prior head CT from 09/21/2017. The ventricles and sulci are appropriate for the patient's age. There is moderate periventricular hypodensity noted consistent with senescent change. No sulcal effacement is identified. There is no midline shift. No acute intra- axial or extra-axial hemorrhage is detected. The cisterns are patent. The visualized paranasal sinuses are clear. IMPRESSION: Senescent changes. No acute intracranial process is detected. Dictated by: Dictated on workstation # [id number] Reviewed: Reviewed by Me (radiology report reviewed by me) Diagonstic Imaging: Ultrasound Plain Films/CT/US/NM/MRI: other (gallbladder) Comments INDICATION: Abdominal pain. FINDINGS: The liver is normal in size without focal lesions. There is no intrahepatic biliary ductal dilatation. There is prominence of the common bile duct up to 6.8 mm. There is cholelithiasis. There is no gallbladder wall thickening or pericholecystic fluid. Pancreas is not well seen due to bowel gas. Right kidney is normal. There is no ascites. IMPRESSION: Cholelithiasis. Prominence of the common bile duct up to 6.8 mm likely related to patient's age although distal common bile duct stone cannot be entirely excluded. Recommend clinical correlation. Dictated by: Dictated on workstation # [id number] Reviewed: Reviewed by Me (radiology report reviewed) Departure Communication (Admissions) Time/Spoke to Admitting Phy: 19:[address] Ward graciously accepts patient to her service for IV antibiotics, IVF, pain control, and general surgery consult. Time/Spoke to Consulting Phy: 19:40 Communication/Consulting dr. simon notified of consult. Progress Notes patient seen and evaluated. CT angio chest/non-angio abd/pelvis and ct head obtained. stranding noted around the 2nd portion of the duodenum and near the GB. findings discussed with dr. turcios with recommendations for GB US. plan for admission discussed with the patient and family. all verbalize understanding and agree with the treatment plan. plan for admit discussed with dr. miranda, he agrees with the plan of care. Impression Impression: Primary Impression: Pancreatitis Qualified Codes: K85.90 - Acute pancreatitis without necrosis or infection, unspecified Additional Impressions: Volume depletion Urinary tract infection Qualified Codes: N30.00 - Acute cystitis without hematuria Pancreatic mass Duodenitis H/O CHF Atrial fibrillation Qualified Codes: I48.91 - Unspecified atrial fibrillation Intractable abdominal pain Disposition: ADMITTED INPATIENT Condition: Stable Admissions Decision to Admit Reason: Admit from ER (General) Decision to Admit/Date: Nov 15, 2017 Time/Decision to Admit Time: 19:20 Departure-Patient Inst. Referrals: DARRELL GONSALEZ DO (PCP/Family) Primary Care Physician GAGANDEEP NEAL Nov 15, 2017 14:21
[2017-11-15] MEDS ORDERED: fentaNYL INJECTION 100 MCG/2 ML AMP IVP STA (14:22)
[2017-11-15 14:26] LABS: EOSINOPHILS % (MANUAL) 1 %; LYMPHOCYTES % (MANUAL) 10 %; MONOCYTES % (MANUAL) 5 %; NEUTROPHILS % (MANUAL) 84 %; RBC MORPH NORMAL
[2017-11-15 14:40] LABS: CREATINE KINASE MB 0.9 NG/ML (<6.6); MYOGLOBIN SERUM 26.6 NG/ML (10.0-92.0); TSH (THYROID ANALYZER) 0.74 UIU/ML (0.35-4.94)
--- NOTE | 2017-11-15 15:23 | Diagnostic Imaging Report ---
PROCEDURE: CT head without contrast. TECHNIQUE: Multiple contiguous axial images were obtained through the brain without the use of intravenous contrast. INDICATION: Headache. Comparison is made with prior head CT from 09/21/2017. The ventricles and sulci are appropriate for the patient's age. There is moderate periventricular hypodensity noted consistent with senescent change. No sulcal effacement is identified. There is no midline shift. No acute intra-axial or extra-axial hemorrhage is detected. The cisterns are patent. The visualized paranasal sinuses are clear. IMPRESSION: Senescent changes. No acute intracranial process is detected. Dictated by: Dictated on workstation # [id number]
[2017-11-15] MEDS ORDERED: NS 250 ML (IVPB) BAG IV ONE (15:30)
[2017-11-15] MEDS ORDERED: IOHEXOL 350 MG/ML 150 ML (OMNIPAQUE 350) VIAL IV ONE (15:30)
--- NOTE | 2017-11-15 16:05 | Diagnostic Imaging Report ---
INDICATION: Severe pain in the lower chest extending into the abdomen. Axial imaging through the chest was performed after the administration of intravenous contrast utilizing the CT angiography protocol. Routine postcontrast axial imaging through the abdomen and pelvis was also performed. Multiplanar, 3-D and MIP reformations of the chest were performed. CTA chest: FINDINGS: The thoracic aorta is normal caliber. No dissection is identified. The pulmonary arterial system is without evidence of thromboembolism. No axillary, hilar or mediastinal lymphadenopathy is detected. No pericardial or pleural fluid is detected. Parenchymal evaluation does show some scarring or atelectasis in the lingula as well as bilateral lower lobes. IMPRESSION: No evidence of pulmonary embolism or thoracic aortic dissection. CT abdomen and pelvis: FINDINGS: No discrete liver mass is identified. There does appear to be moderate dilatation of the gallbladder. There is a questionable stone within the gallbladder. No definite wall thickening is seen. No biliary ductal dilatation is identified. The pancreas does show an ill-defined low-density mass in the pancreatic body measuring 2.2 x 1.6 cm. No pancreatic ductal dilatation is seen. Spleen is unremarkable. No adrenal mass is detected. Kidneys are unremarkable apart from a tiny nonobstructing calculus in the lower pole on the right. Aorta is heavily calcified but nonaneurysmal. There is some questionable wall thickening involving the second portion of the duodenum with minimal adjacent inflammatory stranding, seen images 36 through 43. No free fluid is identified. There is no bowel obstruction. Bowel loops are normal caliber. There is moderate stool in the right colon. A large amount of artifact is identified in the pelvis from patient's bilateral hip prostheses. IMPRESSION: 1. Low-density mass located in the pancreatic body, suspicious for pancreatic neoplasm. No pancreatic or biliary ductal dilatation is seen. 2. Moderate gallbladder distention with questionable gallstones. There is also some inflammation in the right upper quadrant adjacent to the gallbladder and second portion of the duodenum. Considerations include cholecystitis, peptic ulcer disease or perhaps mild pancreatitis. Gallbladder ultrasound would be useful for further evaluation. Results were discussed with Lety Neal of the emergency department prior to this dictation. Dictated by: Dictated on workstation # [id number]
[2017-11-15] MEDS ORDERED: ONDANSETRON 4 MG (ZOFRAN) ORAL DISSOLVE TAB SL STA (16:07)
[2017-11-15] MEDS ORDERED: morphine INJ 10 MG/ML 1ML (SYR OR VIAL) IM STA (16:07)
[2017-11-15 16:08] LABS: BACTERIA,URINE LARGE /HPF; BILIRUBIN,URINE NEGATIVE (NEGATIVE); CLARITY,URINE CLOUDY; COLOR,URINE YELLOW; GLUCOSE, URINE (UA) NEGATIVE (NEGATIVE); KETONES,URINE 3+ (NEGATIVE); LEUKOCYTE ESTERASE ,URINE 3+ (NEGATIVE); NITRITE,URINE NEGATIVE (NEGATIVE); PH,URINE 6.5 (5-9); PROTEIN,URINE 2+ (NEGATIVE); UROBILINOGEN,URINE NORMAL (NORMAL); WBC,URINE >100 /HPF
[2017-11-15] MEDS ORDERED: morphine INJ 10 MG/ML 1ML (SYR OR VIAL) IVP STA (17:14)
[2017-11-15] MEDS ORDERED: cefTRIAXone INJECTION 1,000 MG in NS (IVPB) 100 ML IV ONE (17:15)
--- NOTE | 2017-11-15 18:32 | Diagnostic Imaging Report ---
PROCEDURE: US Gallbladder. TECHNIQUE: Multiple real-time grayscale images were obtained over the right upper quadrant in various projections. INDICATION: Abdominal pain. FINDINGS: The liver is normal in size without focal lesions. There is no intrahepatic biliary ductal dilatation. There is prominence of the common bile duct up to 6.8 mm. There is cholelithiasis. There is no gallbladder wall thickening or pericholecystic fluid. Pancreas is not well seen due to bowel gas. Right kidney is normal. There is no ascites. IMPRESSION: Cholelithiasis. Prominence of the common bile duct up to 6.8 mm likely related to patient's age although distal common bile duct stone cannot be entirely excluded. Recommend clinical correlation. Dictated by: Dictated on workstation # [id number]
[2017-11-15 20:40] VITALS: BP 173/77
[2017-11-15] MEDS ORDERED: HYDROcodone/APAP 5 MG/325 MG (LORTAB) TAB PO PRN (21:45)
[2017-11-15] MEDS ORDERED: PHENAZOPYRIDINE 100 MG (PYRIDIUM) TABLET PO PRN (21:45)
[2017-11-15] MEDS ORDERED: FAMOTIDINE 20MG/2ML IV (PEPCID) IVP PRN (21:45)
[2017-11-15] MEDS: NS W/KCL 40 MEQ/L 1,000 ML IV SCH (22:58)
[2017-11-15] MEDS: PANTOPRAZOLE 40 MG/10 ML (PROTONIX) VIAL IV SCH (23:01)
[2017-11-15] MEDS: metroNIDAZOLE 500 MG/100 ML IVPB (PRE-MIX) IV SCH (23:01)
[2017-11-15] MEDS: morphine INJ 4 MG/ML 1 ML (VIAL/SYRINGE) IV PRN (23:01)
[2017-11-16] VITALS: BP 156/81
[2017-11-16] MEDS: LEVOFLOXACIN 750 MG/D5W 150 ML PRE-MIX IV SCH ×2 (00:27→21:49)
[2017-11-16] MEDS: morphine INJ 4 MG/ML 1 ML (VIAL/SYRINGE) IV PRN ×4 (03:04→11:34)
[2017-11-16 04:43] VITALS: BP 133/97
[2017-11-16 05:36] LABS: BASOPHILS % (AUTO) 0 % (0-10); EOSINOPHILS % (AUTO) 0 % (0-10); HEMATOCRIT 38 % (35-52); HEMOGLOBIN 12.9 G/DL (11.5-16.0); LYMPHOCYTES # (AUTO) 0.7 X 10^3 (1.0-4.0); LYMPHOCYTES % (AUTO) 4 % (12-44); MEAN CORPUSCULAR HEMOGLOBIN 32 PG (25-34); MEAN CORPUSCULAR HGB CONC 34 G/DL (32-36); MEAN CORPUSCULAR VOLUME 94 FL (80-99); MEAN PLATELET VOLUME 9.5 FL (7.4-10.4); MONOCYTES % (AUTO) 12 % (0-12); NEUTROPHILS # (AUTO) 13.5 X 10^3 (1.8-7.8); NEUTROPHILS % (AUTO) 84 % (42-75); PLATELET COUNT 148 10^3/uL (130-400); RED BLOOD COUNT 3.98 10^6/uL (4.35-5.85); RED CELL DISTRIBUTION WIDTH 14.6 % (10.0-14.5); WHITE BLOOD COUNT 16.2 10^3/uL (4.3-11.0)
[2017-11-16 05:58] LABS: ALANINE AMINOTRANSFERASE 13 U/L (0-55); ALBUMIN 3.6 GM/DL (3.2-4.5); ALKALINE PHOSPHATASE 74 U/L (40-136); AMYLASE 81 U/L (25-125); BILIRUBIN,TOTAL 0.9 MG/DL (0.1-1.0); BUN/CREATININE RATIO 16; CALCIUM 8.4 MG/DL (8.5-10.1); CARBON DIOXIDE 22 MMOL/L (21-32); CHLORIDE 104 MMOL/L (98-107); CREATININE SERUM 0.62 MG/DL (0.60-1.30); GFR ESTIMATED > 60; GLUCOSE 128 MG/DL (70-105); LIPASE 299 U/L (8-78); POTASSIUM 4.6 MMOL/L (3.6-5.0); SODIUM 132 MMOL/L (135-145); TOTAL PROTEIN 6.3 GM/DL (6.4-8.2)
[2017-11-16] MEDS: NS W/KCL 40 MEQ/L 1,000 ML IV SCH ×3 (06:44→16:15)
[2017-11-16] MEDS: SUCRALFATE 1 GM (CARAFATE) TAB PO SCH ×4 (06:44→20:53)
[2017-11-16] MEDS: metroNIDAZOLE 500 MG/100 ML IVPB (PRE-MIX) IV SCH ×3 (06:44→20:53)
[2017-11-16 07:34] VITALS: BP 138/61
[2017-11-16] MEDS ORDERED: MAG30ORA2 PO (07:43)
[2017-11-16] MEDS ORDERED: ROPI0.5T PO (07:43)
[2017-11-16] MEDS ORDERED: MAGN400O7 PO (07:43)
[2017-11-16] MEDS: PANTOPRAZOLE 40 MG/10 ML (PROTONIX) VIAL IV SCH ×2 (08:53→20:53)
[2017-11-16 11:56] VITALS: BP 132/60
--- NOTE | 2017-11-16 13:04 | History & Physical ---
History of Present Illness History of Present Illness Reason for visit/HPI CC: Acute pancreatitis with UTI HPI: This is an 82-year-old white female clinic patient of Dr. MONTESINOS who presented to the hospital with complaints of abdominal pain and weakness. Extensive workup ensued in the ER and revealed acute UTI with acute pancreatitis. She is a nondrinker of alcohol and has never had pancreatitis before. Elevated BNP is noted so we'll consult cardiology and decrease the IV fluids from 150-100 mL an hour and I appreciate Dr. Tse general surgery consultation. Urine culture is pending but patient was placed on Rocephin empirically. She reports that the nausea vomiting and still continued but improved somewhat. She does report that the morphine only last for about 2 hours so I will increase that to 6 mg every 3 hours to help the pain issue she is still having from the pancreatitis. Checked labs and meds and home medications. She is currently on clear liquid diet. She is very constipated and wants to have a bowel movement. Date of Admission Nov 15, 2017 at 20:00 Date Seen by Provider: Nov 16, 2017 Time Seen by Provider: 10:30 I consulted on this patient on 11/16/17 13:02 Attending Physician Mel Montesinos DO Admitting Physician Mel Montesinos DO Consult Allergies and Home Medications Allergies Coded Allergies: nut - unspecified (Verified Allergy, Severe, HIVES, EDEMA, 03/04/17) Home Medications Calcium Carb/Mag Ox/Zinc Sulf 1 Each Tablet, 1 TAB PO 1200 Prescribed by: MEL MONTESINOS on 09/24/17 1258 Calcium Citrate/Vitamin D3 1 Each Tablet, 1 TAB PO 1200 Prescribed by: MEL MONTESINOS on 09/24/17 1258 Docusate Sodium 100 Mg Capsule, 100 MG PO BID Prescribed by: MEL MONTESINOS on 09/24/17 1258 Famotidine 20 Mg Tablet, 20 MG PO DAILY Prescribed by: MEL MONTESINOS on 09/24/17 1258 Latanoprost 2.5 Ml Drops, 1 DROP OU HS, (Reported) Levothyroxine Sodium 100 Mcg Tablet, 100 MCG PO DAILY, (Reported) Losartan Potassium 25 Mg Tablet, 25 MG PO DAILY, (Reported) Mag Hydrox/Al Hydrox/Simeth 30 Ml Oral.susp, 20 ML PO Q4H PRN for INDIGESTION, ( Reported) Magnesium Hydroxide 400 Mg/5 Ml Oral.susp, 400 MG PO DAILY PRN for CONSTIPATION- 2ND LINE, (Reported) Multivitamins-Min/FA/Ginkgo 1 Each Tablet, 1 TAB PO 1200, (Reported) Oxycodone HCl/Acetaminophen 1 Each Tablet, 1-2 TAB PO Q4H PRN for PAIN-MODERATE TO SEVERE Prescribed by: MEL MONTESINOS on 09/24/17 1258 Rivaroxaban 10 Mg Tablet, 10 MG PO DAILY Prescribed by: MEL MONTESINOS on 09/24/17 1258 Ropinirole HCl 0.5 Mg Tablet, 0.5 MG PO HS, (Reported) Patient Home Medication List Home Medication List Reviewed: Yes Past Oehepxt-Qzomnk-Enwvky Hx Past Med/Social Hx: Reviewed Nursing Past Med/Soc Hx, Reviewed and Corrections made Patient Social History Marrital Status: single Employed/Student: retired Alcohol Use: Denies Use Recreational Drug Use: No Smoking Status: Never a Smoker 2nd Hand Smoke Exposure: No Physical Abuse Screen: No Sexual Abuse: No Recent Foreign Travel: No Contact w/other who traveled: No Recent Hopitalizations: Yes Recent Infectious Disease Expo: No Immunizations Up To Date Date of Pneumonia Vaccine: Jun 11, 2017 Date of Influenza Vaccine: Jun 11, 2017 Seasonal Allergies Seasonal Allergies: No Past Medical History Surgeries: Section, Eye Surgery, Hysterectomy, Orthopedic Cardiac: Heart Murmur, Hypertension Gastrointestinal: Gastroesophageal Reflux Endocrine: Hypothyroidsim HEENT: Glaucoma Hearing Impairment: Hard of Hearing History of Blood Disorders: No Family History No Pertinent Family Hx, Hypertension Constitutional: see HPI, malaise, weakness EENTM: no symptoms reported Respiratory: no symptoms reported Cardiovascular: no symptoms reported Gastrointestinal: loss of appetite, nausea, vomiting Genitourinary: decreased output, dysuria, frequency Musculoskeletal: back pain, joint pain Skin: no symptoms reported Psychiatric/Neurological: Anxiety, Depressed All Other Systems Reviewed Negative Unless Noted: Yes Physical Exam Vital Signs Vital Signs - First Documented 11/15/17 13:30 Temp 97.8 Pulse 82 Resp 20 B/P (MAP) 167/79 (108) Pulse Ox 98 O2 Delivery Room Air Capillary Refill : Less Than 3 SecondsLess Than 3 Seconds General Appearance: No Apparent Distress, WD/WN, Chronically ill Eyes: Bilateral Eye Normal Inspection, Bilateral Eye PERRL, Bilateral Eye EOMI HEENT: PERRL/EOMI, TMs Normal, Normal ENT Inspection, Pharynx Normal Neck: Full Range of Motion, Normal Inspection, Non Tender, Supple, Carotid Bruit Respiratory: Chest Non Tender, Lungs Clear, Normal Breath Sounds, No Accessory Muscle Use, No Respiratory Distress Cardiovascular: Regular Rate, Rhythm, No Edema, No Gallop, No JVD, No Murmur, Normal Peripheral Pulses Gastrointestinal: Normal Bowel Sounds, No Organomegaly, No Pulsatile Mass, Abnormal Bowel Sounds, Tenderness Back: Normal Inspection, No CVA Tenderness, No Vertebral Tenderness Extremity: Normal Capillary Refill, Normal Inspection, Normal Range of Motion, Non Tender, No Calf Tenderness, No Pedal Edema Neurologic/Psychiatric: Alert, Oriented x3, No Motor/Sensory Deficits, Normal Mood/Affect Skin: Normal Color, Warm/Dry Lymphatic: No Adenopathy Assessment/Plan Assessment and Plan Assessment: Acute pancreatitis Acute UTI Recent left ankle fracture Dr Edmondson HTN Hypothyroidism Severe presbycusis Leukocytosis DVT Px with Xarelto Elevated BNP consulting Dr Aragon Problems: (1) Pancreatitis Status: Acute (2) UTI (urinary tract infection) Status: Acute Assessment & Plan: F/U on UCx maintain on Rocephin (3) Hypertension Status: Chronic (4) Hypothyroidism Status: Chronic (5) Hyperlipidemia Status: Chronic (6) Immobilizing cast in place Status: Acute Assessment & Plan: Maintain on Xarelto? (7) Volume depletion Admission Diagnosis Acute pancreatitis Admission Status: Inpatient Order (span 2 midnights) Reason for Inpatient Admission: Acute pancreatitis will require several days to resolve and patient is NPO and requires IVF Clinical Quality Measures DVT/VTE Risk/Contraindication: Risk Factor Score Per Nursin RFS Level Per Nursing on Admit: 4+=Very High Problem Qualifiers (1) Pancreatitis: Chronicity: acute Pancreatitis type: unspecified pancreatitis type Acute pancreatitis complication: unspecified Qualified Codes: K85.90 - Acute pancreatitis without necrosis or infection, unspecified (2) UTI (urinary tract infection): Urinary tract infection type: acute cystitis (3) Hypertension: Hypertension type: essential hypertension Qualified Codes: I10 - Essential ( primary) hypertension (4) Hypothyroidism: Hypothyroidism type: acquired Qualified Codes: E03.9 - Hypothyroidism, unspecified (5) Hyperlipidemia: Hyperlipidemia type: pure hypercholesterolemia Qualified Codes: E78.00 - Pure hypercholesterolemia, unspecified ARMANDO LEWIS DO Nov 16, 2017 13:04
[2017-11-16] MEDS ORDERED: POLYETHYLENE GLYCOL 17 GM (MIRALAX) PACK PO NR (13:15)
[2017-11-16] MEDS: morphine INJ 10 MG/ML 1ML (SYR OR VIAL) IV PRN (14:22)
--- NOTE | 2017-11-16 14:23 | CONSULTATION REPORT ---
DATE OF SERVICE: 11/16/2017 ATTENDING PRIMARY CARE PHYSICIAN: Elsa Magdaleno MD. HISTORY OF PRESENT ILLNESS: The patient is an 82-year-old female brought to [facility] for abdominal pain. She reports that the pain has been around for some time; however, was significantly worse and this was also associated with nausea and vomiting. She states that the pain is in the epigastric region; however, the radiation does go towards the left back. She also reports that she was not eating well lately. She was evaluated and found to have a significant urinary tract infection as well as leukocytosis. Her vital signs are stable. A CT scan of the chest and abdomen was performed. There was a cholelithiasis identified; however, no signs of cholecystitis. A significant size lesion of the body of the pancreas was also identified, which appears solid. She does not report any known family history of any cancers. She also does not report any weight loss. PAST MEDICAL HISTORY: Hypothyroid, hypertension, hearing loss, glaucoma. PAST SURGICAL HISTORY: section x3, total hysterectomy and appendectomy. Left shoulder ORIF, left ankle ORIF 09/2017. ALLERGIES: No known drug allergies; however, SHE IS ALLERGIC TO NUTS. MEDICATIONS: Famotidine 20 mg daily, levothyroxine 100 mcg daily, losartan 25 mg daily, oxycodone p.r.n., rivaroxaban 10 mg daily. SOCIAL HISTORY: Negative smoke, negative alcohol. FAMILY HISTORY: Noncontributory. VITAL SIGNS: Temperature 98.7, blood pressure 132/60, pulse 83, respirations 16, pulse ox 95% on room air. REVIEW OF SYSTEMS: A well-nourished female currently guarded secondary to the abdominal pain. She does report chest discomfort in the epigastric region as well as radiation towards the left chest and left upper back. Intermittent episodes of nausea and vomiting usually after eating. No hematemesis or coffee-ground emesis. She does not report any abnormalities in her bowel movements. No fever, chills, no recent inadvertent weight loss. All other review of systems negative. PHYSICAL EXAMINATION: CHEST: Good breath sounds bilaterally clear. HEART: Regular, no murmurs. EXTREMITIES: No lower extremity edema, negative Homans sign. HEENT: No scleral icterus. NECK: No cervical lymphadenopathy. ABDOMEN: Soft, nondistended. There is pain in the epigastric region with voluntary guarding, no rebound. SKIN: Warm, dry. LABORATORY DATA: WBC 16.2, hemoglobin 12.9, platelets 148. Liver function enzymes normal. Amylase 81, lipase 299. ASSESSMENT AND PLAN: An 82-year-old female with abdominal pain. We feel that the abdominal pain is due to multiple etiologies. She has a significant urinary tract infection and has a leukocytosis associated with this. This may be the cause of her back pain as well as nausea and vomiting. She also does have cholelithiasis; however, there are no signs of chronic or acute cholecystitis at this time; however, may be contributing to her symptoms on an intermittent basis. She also has a pancreatic lesion at the body of the pancreas. This is a retroperitoneal structure and richly innervated by nerves and may be the cause of her pain as well. At this time, we will recommend conservative management and continue with pain control, IV hydration as well as IV antibiotics for the urinary tract infection. Once her infection is cleared and if she is stable, she may elect for a laparoscopic cholecystectomy; however, this may not completely take her pain away and the pancreatic lesion may need to be evaluated by gastroenterology for endoscopic ultrasound and possible biopsy. For now, we will continue with supportive care. Job ID: [id number] DocumentID: [id number] Dictated Date: 11/16/2017 12:16:52 Outside Barrel Lathe Operator Date: 11/16/2017 14:22:51 Dictated By: BOB SCHREIBER MD [facility]
[2017-11-16 16:35] VITALS: BP 134/75
--- NOTE | 2017-11-16 17:10 | Consultation-Cardiology ---
HPI-Cardiology Cardiology Consultation: Date of Consultation 11/16/17 Date of Admission Attending Physician Mel Montesinos DO Admitting Physician Mel Montesinos DO Consulting Physician Boubacar ARAGON MD HPI: Time Seen by Provider: 17:09 Chief Complaint: Abdominal discomfort This is a pleasant 82-year-old lady who is a patient of Dr. Montesinos. She presented to the hospital with abdominal discomfort and weakness. She was diagnosed with acute pancreatitis with UTI. She also complained of mild nausea , vomiting. According to the patient she has history of congestive heart failure and a murmur. However she denied having any heart rhythm problems however on a previous note I noted that somebody had mentioned history of atrial fibrillation. Therefore that needs to be clarified. The patient denies any significant shortness of breath during my examination. She also denies chest pain, palpitation, syncope or near syncope. Review of Systems-Cardiology Review of Systems Constitutional: As described under HPI Eyes: No As described under HPI, No no symptoms reported, No blindness, No blurred vision, No contact lenses, No drainage, No decreased acuity, No foreign body sensation, No glasses, No inflammation, No pain, No photophobia, No previous injury, No shadows, No tunnel vision, No other, No vision change Ears/Nose/Throat: No As described under HPI, No no symptoms reported, No chronic hearing loss, No epistaxis, No ear discharge, No ear pain, No loose teeth, No mouth pain, No mouth swelling, No nasal drainage, No nose pain, No recent hearing loss, No throat pain, No throat swelling, No ulcerations, No other Respiratory: No no symptoms reported, No As described under HPI, No cough, No orthopnea, No shortness of breath, No SOB with excertion, No SOB at rest, No stridor, No wheezing, No other Cardiovascular: No no symptoms reported, No As described under HPI, No chest pain, No edema, No irregular heart rate, No lightheadedness, No palpitations, No syncope, No other Gastrointestinal: abdominal pain, nausea, vomiting Genitourinary: As described under HPI Musculoskeletal: No no symptoms reported, No As describe under HPI, No back pain, No gout, No joint pain, No joint swelling, No muscle pain, No muscle stiffness, No neck pain, No other Skin: No no symptoms reported, No As described under HPI, No change in color, No change in hair/nails, No dryness, No lesions, No lumps, No rash, No other, No skin related problems, No ulcerations, No rash on exposed areas, No ulcerations on exposed areas Psychiatric/Neurological: No no symptoms reported, No As described under HPI, No anxiety, No depression, No emotional problems, No headache, No numbness, No pre-existing deficit, No seizure, No tingling, No tremors, No weakness, No other , No focal weakness, No syncope Hematologic: No no symptoms reported, No As described under HPI, No anemia, No blood clots, No easy bleeding, No easy bruising, No swollen glands, No other, No bleeding abnormalities All Other Systems Reviewed Negative Unless Noted: Yes ZME-Lettdo-Rqzxkk Hx Patient Social History Marrital Status: single Employed/Student: retired Alcohol Use: Denies Use Recreational Drug Use: No Smoking Status: Never a Smoker 2nd Hand Smoke Exposure: No Recent Foreign Travel: No Recent Infectious Disease Expo: No Hospitalization with Isolation: Denies Physical Abuse Screen: No Sexual Abuse: No Immunizations Up To Date Date of Pneumonia Vaccine: Jun 11, 2017 Date of Influenza Vaccine: Jun 11, 2017 Past Medical History PMH As described under Assessment. Allergies and Home Medications Allergies Coded Allergies: nut - unspecified (Verified Allergy, Severe, HIVES, EDEMA, 03/04/17) Home Medications Calcium Carb/Mag Ox/Zinc Sulf 1 Each Tablet, 1 TAB PO 1200 Prescribed by: MEL MONTESINOS on 09/24/17 1258 Calcium Citrate/Vitamin D3 1 Each Tablet, 1 TAB PO 1200 Prescribed by: MEL MONTESINOS on 09/24/17 1258 Docusate Sodium 100 Mg Capsule, 100 MG PO BID Prescribed by: MEL MONTESINOS on 09/24/17 1258 Famotidine 20 Mg Tablet, 20 MG PO DAILY Prescribed by: MEL MONTESINOS on 09/24/17 1258 Latanoprost 2.5 Ml Drops, 1 DROP OU HS, (Reported) Levothyroxine Sodium 100 Mcg Tablet, 100 MCG PO DAILY, (Reported) Losartan Potassium 25 Mg Tablet, 25 MG PO DAILY, (Reported) Mag Hydrox/Al Hydrox/Simeth 30 Ml Oral.susp, 20 ML PO Q4H PRN for INDIGESTION, ( Reported) Magnesium Hydroxide 400 Mg/5 Ml Oral.susp, 400 MG PO DAILY PRN for CONSTIPATION- 2ND LINE, (Reported) Multivitamins-Min/FA/Ginkgo 1 Each Tablet, 1 TAB PO 1200, (Reported) Oxycodone HCl/Acetaminophen 1 Each Tablet, 1-2 TAB PO Q4H PRN for PAIN-MODERATE TO SEVERE Prescribed by: MEL MONTESINOS on 09/24/17 1258 Rivaroxaban 10 Mg Tablet, 10 MG PO DAILY Prescribed by: MEL MONTESINOS on 09/24/17 1258 Ropinirole HCl 0.5 Mg Tablet, 0.5 MG PO HS, (Reported) Patient Home Medication List Home Medication List Reviewed: Yes Physical Exam-Cardiology Physical Exam Vital Signs/I&O Vital Sign - Last 12Hours 11/16/17 11/16/17 11/16/17 11:56 13:00 16:35 Temp 98.7 99.3 Pulse 83 79 86 Resp 16 18 B/P (MAP) 132/60 (84) 134/75 (94) Pulse Ox 95 94 O2 Delivery Room Air Room Air Intake and Output 11/16/17 00:00 Intake Total 2100 ml Balance 2100 ml Capillary Refill : Less Than 3 SecondsLess Than 3 Seconds Constitutional: appears stated age, AAO x 3 HEENT: No PERRL, No normal ENT inspection, No TMs normal, No pharynx normal, No scleral icterus (R), No scleral icterus (L), No pale conjunctivae (R), No pale conjunctivae (L), No photophobia, No TM abnormal (R), No TM abnormal (L), No pharyngeal erythema, No tonsillar exudate, No other, No discharge, No EOMI, No hearing is well preserved, No hard of hearing, No oral hygience is good, No ulceration, No xanthelasmas are seen Neck: No non-tender, No full range of motion, No supple, No normal inspection, No carotid bruit, No limited range of motion, No lymphadenopathy (R), No lymphadenopathy (L), No tender lateral, No tender midline, No thyromegaly, No other, No carotid pulses are 2 + bilaterally, No with good upstrokes Respiratory: No accessory muscle use, No respiratory distress, No chest tender , No chest expansion is symmetric, chest is bilaterally symmetric, No lungs clear to percussion, lungs clear to auscultation, No crackles, No rhonchi, No rales, No stridor, No wheezing, No pleural rub, No other Cardiovascular: regular rate-rhythm, No irregularly irregular, No extra beats, No parasternal heave is noted, No JVD, No edema, No bradycardia, No tachycardia , No point of maximal impulse, No cardiac thrills are palpable, S1 and S2, No gallop/S3, No gallop/S4, No diastolic murmur, No systolic murmur, No friction rub, No click, No other Gastrointestinal: No tender, No soft, No round, No distended, No pulsatile mass , No organomegaly, No guarding, No rebound, No tenderness, No hernia, No mass, No audible bowel sounds, No abnormal bowel sounds, No abdominal bruits, No spleenomegaly, No other Rectal: deferred Extremities: No normal range of motion, No non-tender, No normal inspection, No pedal edema, No calf tenderness, No normal capillary refill, No pelvis stable , No calf tenderness, No inflammation, No pedal edema, No slow capillary refill , No swelling, No other, No abrasion, No clubbing, No cyanosis, No ecchymosis, No laceration, No no lower extremity edema bilateral, No significant edema, No tenderness, No wound Neurologic/Psychiatric: No ornamenter hand II-XII nml as tested, No no motor/sensory deficits, alert, normal mood/affect, oriented x 3, No abnormal cerebellar tests , No abnormal ornamenter hand II-XII, No abnormal gait, No aphasia, No EOM palsy, No facial droop, No motor weakness, No sensory deficit, No depressed affect, No disoriented x 3, No other, No grossly intact, No power is 5/5 both on sides Skin: No normal color, No warm/dry, No cyanosis, No cool, No diaphoresis, No damp, No ecchymosis, No jaundice, No mottled, No pallor, No rash, No tattoos/ piercings, No ulcerations, No rash on exposed areas, No ulcerations on exposed areas, No other Data Review Labs Laboratory Tests 11/16/17 05:25: White Blood Count 16.2H, Red Blood Count 3.98L, Hemoglobin 12.9, Hematocrit 38, Mean Corpuscular Volume 94, Mean Corpuscular Hemoglobin 32, Mean Corpuscular Hemoglobin Concent 34, Red Cell Distribution Width 14.6H, Platelet Count 148, Mean Platelet Volume 9.5, Neutrophils (%) (Auto) 84H, Lymphocytes (%) (Auto) 4L , Monocytes (%) (Auto) 12, Eosinophils (%) (Auto) 0, Basophils (%) (Auto) 0, Neutrophils # (Auto) 13.5H, Lymphocytes # (Auto) 0.7L, Monocytes # (Auto) 2.0H, Eosinophils # (Auto) 0.0, Basophils # (Auto) 0.0, Sodium Level 132L, Potassium Level 4.6, Chloride Level 104, Carbon Dioxide Level 22, Anion Gap 6, Blood Urea Nitrogen 10, Creatinine 0.62, Estimat Glomerular Filtration Rate > 60, BUN/ Creatinine Ratio 16, Glucose Level 128H, Calcium Level 8.4L, Total Bilirubin 0.9 , Aspartate Amino Transf (AST/SGOT) 23, Alanine Aminotransferase (ALT/SGPT) 13, Alkaline Phosphatase 74, C-Reactive Protein High Sensitivity 14.41H, Total Protein 6.3L, Albumin 3.6, Amylase Level 81, Lipase 299H Microbiology 11/15/17 Blood Culture - Preliminary, Resulted No growth 11/15/17 Urine Culture - Preliminary, Resulted Klebsiella pneumoniae A/P-Cardiology Assessment/Admission Diagnosis UTI sepsis, Acute pancreatitis, History of diastolic congestive heart failure, Hypertension, Nonobstructive CAD. Plan UTI sepsis: On IV antibiotics. Acute pancreatitis. Elevated amylase, lipase. Etiology unclear. General surgery following. Chronic diastolic congestive heart failure. Currently no significant shortness of breath. Euvolemic on examination. Mildly elevated BNP. Not in florid congestive heart failure. Will not advise diuretics at this point in time. We will continue to follow. Coronary angiography in 2017 shows mild nonobstructive CAD. Echocardiogram showed normal LV function with mild diastolic dysfunction. At that point in time was started on beta blockers. On Xarelto for previous ankle surgery. Hypertension: Continue losartan. Thank you for your consultation. Please call me if you have any questions. Martha Aragon MD, FACP, FACC, FSCAI, FHRS, CCDS Interventional Cardiology Cardiac Electrophysiology Vascular Medicine and Endovascular Interventions Clinical Quality Measures DVT/VTE Risk/Contraindication: Risk Factor Score Per Nursin RFS Level Per Nursing on Admit: 4+=Very High Boubacar ARAGON MD Nov 16, 2017 17:10
[2017-11-16 20:45] VITALS: BP 161/67
[2017-11-16] MEDS: LATANOPROST 0.005% (XALATAN) OPHTH SOLN 2.5 ML OU SCH (21:49)
[2017-11-17] VITALS: BP 117/58
[2017-11-17] MEDS: morphine INJ 10 MG/ML 1ML (SYR OR VIAL) IV PRN ×2 (01:57→08:15)
[2017-11-17] MEDS: ONDANSETRON 4 MG/2 ML (SDV) Z0FRAN IV PRN (02:02)
[2017-11-17 04:00] VITALS: BP 116/57
[2017-11-17] MEDS: NS W/KCL 40 MEQ/L 1,000 ML IV SCH ×2 (04:55→16:22)
[2017-11-17] MEDS: metroNIDAZOLE 500 MG/100 ML IVPB (PRE-MIX) IV SCH ×3 (04:55→22:44)
[2017-11-17] MEDS: LEVOTHYROXINE 100 MCG (LEVOTHROID) TAB PO SCH (04:55)
[2017-11-17] MEDS: SUCRALFATE 1 GM (CARAFATE) TAB PO SCH ×4 (04:55→21:15)
[2017-11-17 06:36] LABS: BASOPHILS % (AUTO) 0 % (0-10); EOSINOPHILS # (AUTO) 0.1 10^3/uL (0.0-0.3); EOSINOPHILS % (AUTO) 1 % (0-10); HEMATOCRIT 33 % (35-52); HEMOGLOBIN 11.1 G/DL (11.5-16.0); LYMPHOCYTES # (AUTO) 1.2 X 10^3 (1.0-4.0); LYMPHOCYTES % (AUTO) 10 % (12-44); MEAN CORPUSCULAR HEMOGLOBIN 32 PG (25-34); MEAN CORPUSCULAR HGB CONC 33 G/DL (32-36); MEAN CORPUSCULAR VOLUME 96 FL (80-99); MEAN PLATELET VOLUME 10.1 FL (7.4-10.4); MONOCYTES # (AUTO) 1.4 X 10^3 (0.0-1.0); MONOCYTES % (AUTO) 12 % (0-12); NEUTROPHILS % (AUTO) 77 % (42-75); PLATELET COUNT 139 10^3/uL (130-400); RED BLOOD COUNT 3.48 10^6/uL (4.35-5.85); RED CELL DISTRIBUTION WIDTH 14.8 % (10.0-14.5); WHITE BLOOD COUNT 11.6 10^3/uL (4.3-11.0)
[2017-11-17 06:59] LABS: ALANINE AMINOTRANSFERASE 11 U/L (0-55); ALBUMIN 3.2 GM/DL (3.2-4.5); ALKALINE PHOSPHATASE 67 U/L (40-136); AMYLASE 23 U/L (25-125); BILIRUBIN,TOTAL 0.9 MG/DL (0.1-1.0); BUN/CREATININE RATIO 16; CALCIUM 8.3 MG/DL (8.5-10.1); CARBON DIOXIDE 20 MMOL/L (21-32); CHLORIDE 107 MMOL/L (98-107); CREATININE SERUM 0.61 MG/DL (0.60-1.30); GFR ESTIMATED > 60; GLUCOSE 87 MG/DL (70-105); LIPASE 82 U/L (8-78); POTASSIUM 4.5 MMOL/L (3.6-5.0); SODIUM 135 MMOL/L (135-145); TOTAL PROTEIN 5.7 GM/DL (6.4-8.2)
[2017-11-17 08:00] VITALS: BP 137/62
[2017-11-17] MEDS: RIVAROXABAN 10 MG TABLET (XARELTO) PO SCH (08:13)
[2017-11-17] MEDS: LOSARTAN 25 MG (COZAAR) TAB PO SCH (08:13)
[2017-11-17] MEDS: PANTOPRAZOLE 40 MG/10 ML (PROTONIX) VIAL IV SCH ×2 (08:13→21:15)
--- NOTE | 2017-11-17 10:38 | Cardiology Progress Note ---
Cardiology SOAP Progress Note Subjective: No shortness of breath Objective: I&O/Vital Signs Vital Sign - Last 12Hours 11/17/17 11/17/17 11/17/17 12:00 17:11 20:00 Temp 98.6 98.1 98.6 Pulse 78 71 74 Resp 18 20 20 B/P (MAP) 125/58 (80) 107/53 (71) 121/73 (89) Pulse Ox 96 98 96 O2 Delivery Room Air Room Air Room Air Intake and Output 11/17/17 00:00 Intake Total 2050 ml Output Total 575 ml Balance 1475 ml Weight (Pounds): 200 Weight (Ounces): 0.0 Weight (Calculated Kilograms): [id number] Constitutional: appears stated age, AAO x 3 Respiratory: No accessory muscle use, No respiratory distress, No chest tender , No chest expansion is symmetric, chest is bilaterally symmetric, No lungs clear to percussion, lungs clear to auscultation, No crackles, No rhonchi, No rales, No stridor, No wheezing, No pleural rub, No other Cardiovascular: regular rate-rhythm, No irregularly irregular, No extra beats, No parasternal heave is noted, No JVD, No edema, No bradycardia, No tachycardia , No point of maximal impulse, No cardiac thrills are palpable, S1 and S2, No gallop/S3, No gallop/S4, No diastolic murmur, No systolic murmur, No friction rub, No click, No other Gastrointestional: No tender, No soft, No round, No distended, No pulsatile mass, No organomegaly, No guarding, No rebound, No tenderness, No hernia, No mass, No audible bowel sounds, No abnormal bowel sounds, No abdominal bruits, No spleenomegaly, No other Extremities: No normal range of motion, No non-tender, No normal inspection, No pedal edema, No calf tenderness, No normal capillary refill, No pelvis stable , No calf tenderness, No inflammation, No pedal edema, No slow capillary refill , No swelling, No other, No abrasion, No clubbing, No cyanosis, No ecchymosis, No laceration, No no lower extremity edema bilateral, No significant edema, No tenderness, No wound Neurologic/Psychiatric: No electronic data interchange specialist II-XII nml as tested, No no motor/sensory deficits, alert, normal mood/affect, oriented x 3, No abnormal cerebellar tests , No abnormal electronic data interchange specialist II-XII, No abnormal gait, No aphasia, No EOM palsy, No facial droop, No motor weakness, No sensory deficit, No depressed affect, No disoriented x 3, No other, No grossly intact, No power is 5/5 both on sides Skin: No normal color, No warm/dry, No cyanosis, No cool, No diaphoresis, No damp, No ecchymosis, No jaundice, No mottled, No pallor, No rash, No tattoos/ piercings, No ulcerations, No rash on exposed areas, No ulcerations on exposed areas, No other Results/Procedures: Labs Laboratory Tests 11/17/17 05:53: White Blood Count 11.6H, Red Blood Count 3.48L, Hemoglobin 11.1L, Hematocrit 33L , Mean Corpuscular Volume 96, Mean Corpuscular Hemoglobin 32, Mean Corpuscular Hemoglobin Concent 33, Red Cell Distribution Width 14.8H, Platelet Count 139, Mean Platelet Volume 10.1, Neutrophils (%) (Auto) 77H, Lymphocytes (%) (Auto) 10L, Monocytes (%) (Auto) 12, Eosinophils (%) (Auto) 1, Basophils (%) (Auto) 0, Neutrophils # (Auto) 9.0H, Lymphocytes # (Auto) 1.2, Monocytes # (Auto) 1.4H, Eosinophils # (Auto) 0.1, Basophils # (Auto) 0.0, Sodium Level 135, Potassium Level 4.5, Chloride Level 107, Carbon Dioxide Level 20L, Anion Gap 8, Blood Urea Nitrogen 10, Creatinine 0.61, Estimat Glomerular Filtration Rate > 60, BUN/ Creatinine Ratio 16, Glucose Level 87, Calcium Level 8.3L, Total Bilirubin 0.9, Aspartate Amino Transf (AST/SGOT) 18, Alanine Aminotransferase (ALT/SGPT) 11, Alkaline Phosphatase 67, Total Protein 5.7L, Albumin 3.2, Amylase Level 23L, Lipase 82H Microbiology 11/15/17 Blood Culture - Preliminary, Resulted No growth 11/15/17 Urine Culture - Final, Complete Klebsiella pneumoniae A/P: Assessment/Dx: UTI sepsis, Acute pancreatitis, History of diastolic congestive heart failure, Hypertension, Nonobstructive CAD. Plan: UTI sepsis: On IV antibiotics. Acute pancreatitis. Elevated amylase, lipase. Etiology unclear. General surgery following. Chronic diastolic congestive heart failure. Currently no significant shortness of breath. Euvolemic on examination. Mildly elevated BNP. Not in florid congestive heart failure. Will not advise diuretics at this point in time. We will continue to follow. Coronary angiography in 2017 shows mild nonobstructive CAD. Echocardiogram showed normal LV function with mild diastolic dysfunction. At that point in time was started on beta blockers. On Xarelto for previous ankle surgery. Hypertension: Continue losartan. Dr Carrizales to follow from 11/18/2017 Thank you for your consultation. Please call me if you have any questions. Martha Aragon MD, FACP, FACC, FSCAI, FHRS, CCDS Interventional Cardiology Cardiac Electrophysiology Vascular Medicine and Endovascular Interventions Focused Exam Evaluation Lactate Level Laboratory Tests 11/15/17 13:49: Lactic Acid Level 1.00 Boubacar ARAGON MD Nov 17, 2017 10:38
--- NOTE | 2017-11-17 10:58 | Progress Note (SOAP) ---
Subjective Date Seen by Provider: Nov 17, 2017 Time Seen by Provider: 10:40 Subjective/Events-last exam Patient seen with Dr. Tse. Patient reports doing better. Reports RUQ abdominal pain. No N/V since yesterday. No fever/chills. Does report constipation. Tolerating liquid diet. Focused Exam Evaluation Lactate Level Laboratory Tests 11/15/17 13:49: Lactic Acid Level 1.00 Objective Exam Vital Signs Date Time Temp Pulse Resp B/P (MAP) Pulse Ox O2 Delivery O2 Flow Rate FiO2 11/17/17 09:33 Room Air 11/17/17 08:00 98.4 75 18 137/62 (87) 97 Room Air 11/17/17 04:00 97.9 80 16 116/57 (76) 97 Room Air 11/17/17 00:00 98.4 76 18 117/58 (77) 95 Room Air 11/16/17 20:45 98.9 91 18 161/67 (98) 96 Room Air 11/16/17 16:35 99.3 86 18 134/75 (94) 94 Room Air 11/16/17 13:00 79 11/16/17 11:56 98.7 83 16 132/60 (84) 95 Room Air I & O 11/17/17 07:00 Intake Total 3900 ml Output Total 1475 ml Balance 2425 ml Capillary Refill : Less Than 3 SecondsLess Than 3 Seconds General Appearance: No Apparent Distress, WD/WN HEENT: PERRL/EOMI Neck: Full Range of Motion, Normal Inspection, Non Tender, Supple Respiratory: Chest Non Tender, Lungs Clear, Normal Breath Sounds, No Accessory Muscle Use, No Respiratory Distress Cardiovascular: Regular Rate, Rhythm, No Edema Gastrointestinal: normal bowel sounds, soft, tenderness (RUQ) Extremity: Normal Capillary Refill, No Calf Tenderness, Other (Left leg walking boot. ) Neurologic/Psychiatric: Alert, Oriented x3 Skin: Normal Color, Warm/Dry Results Lab Laboratory Tests 11/17/17 05:53: White Blood Count 11.6H, Red Blood Count 3.48L, Hemoglobin 11.1L, Hematocrit 33L , Mean Corpuscular Volume 96, Mean Corpuscular Hemoglobin 32, Mean Corpuscular Hemoglobin Concent 33, Red Cell Distribution Width 14.8H, Platelet Count 139, Mean Platelet Volume 10.1, Neutrophils (%) (Auto) 77H, Lymphocytes (%) (Auto) 10L, Monocytes (%) (Auto) 12, Eosinophils (%) (Auto) 1, Basophils (%) (Auto) 0, Neutrophils # (Auto) 9.0H, Lymphocytes # (Auto) 1.2, Monocytes # (Auto) 1.4H, Eosinophils # (Auto) 0.1, Basophils # (Auto) 0.0, Sodium Level 135, Potassium Level 4.5, Chloride Level 107, Carbon Dioxide Level 20L, Anion Gap 8, Blood Urea Nitrogen 10, Creatinine 0.61, Estimat Glomerular Filtration Rate > 60, BUN/ Creatinine Ratio 16, Glucose Level 87, Calcium Level 8.3L, Total Bilirubin 0.9, Aspartate Amino Transf (AST/SGOT) 18, Alanine Aminotransferase (ALT/SGPT) 11, Alkaline Phosphatase 67, Total Protein 5.7L, Albumin 3.2, Amylase Level 23L, Lipase 82H Microbiology 11/15/17 Blood Culture - Preliminary, Resulted No growth 11/15/17 Urine Culture - Preliminary, Resulted Klebsiella pneumoniae Assessment/Plan Assessment/Plan Assess & Plan/Chief Complaint An 82-year-old female with pancreatitis, UTI, Cholelithiasis. Nausea and Vomiting resolved. VSS. Labs improving. Will advance to low-fat diet. Constipation, patient on miralax Continue IV fluids, IV antibiotics, IV nausea and pain medication. Will need evaluation by GI for endoscopic ultrasound and possible biopsy of pancreatic lesion. May elect for laparoscopic cholecystectomy as an outpatient. Clinical Quality Measures DVT/VTE Risk/Contraindication: Risk Factor Score Per Nursin RFS Level Per Nursing on Admit: 4+=Very High FABRICIO ZHOU CUSTOMER EXPERIENCE LEADER Nov 17, 2017 10:58
[2017-11-17] MEDS: oxyCODONE/APAP 10/325MG (PERCOCET 10) TABLET PO PRN ×2 (11:10→21:15)
[2017-11-17 12:00] VITALS: BP 125/58
--- NOTE | 2017-11-17 13:15 | Progress Note-Standard ---
Standard Progress Note Progress Notes/Assess & Plan Date Seen 11/17/17 Time Seen by Provider: 11:40 Assess & Plan/Chief Complaint Patient doing much better and pain medication has helped since it has been increased Labs reviewed and all much improved levels Denies any nausea Advance diet and tolerating that well Still no bowel movement so we'll initiate aggressive bowel regimen Appreciate general surgery consultation Patient on Xarelto for A. fib and also DVT prophylaxis and she is immobile and nonweightbearing No fever, vital signs stable, pleasant, improved, very hard of hearing Regular rate and rhythm, clear to auscultation bilaterally No edema and left leg is in brace Laboratory Tests 11/17/17 05:53 Assessment: Acute pancreatitis with gallbladder ultrasound normal Acute UTI Chronic anticoagulation for stroke prophylaxis due to age a fibrillation Immobile due to left leg surgery in brace Severe presbycusis Constipation Plan: Resolve constipation Check labs in a.m. Maintain pain medication Maintain anticoagulation for DVT prophylaxis and A. fib stroke prophylaxis Labs Laboratory Tests 11/15/17 13:49 11/16/17 05:25 11/17/17 05:53 Focused Exam Evaluation Lactate Level Laboratory Tests 11/15/17 13:49: Lactic Acid Level 1.00 Diagnosis/Problems Diagnosis/Problems (1) Pancreatitis Status: Acute Qualifiers: Qualified Codes: K85.90 - Acute pancreatitis without necrosis or infection, unspecified (2) UTI (urinary tract infection) Status: Acute Assessment & Plan: F/U on UCx maintain on Rocephin Qualifiers: (3) Hypertension Status: Chronic Qualifiers: Qualified Codes: I10 - Essential (primary) hypertension (4) Hypothyroidism Status: Chronic Qualifiers: Qualified Codes: E03.9 - Hypothyroidism, unspecified (5) Hyperlipidemia Status: Chronic Qualifiers: Qualified Codes: E78.00 - Pure hypercholesterolemia, unspecified (6) Immobilizing cast in place Status: Acute Assessment & Plan: Maintain on Xarelto? (7) Volume depletion (8) Atrial fibrillation Status: Chronic Qualifiers: Qualified Codes: I48.0 - Paroxysmal atrial fibrillation ARMANDO LEWIS DO Nov 17, 2017 13:15
[2017-11-17] MEDS: LACTULOSE SYRUP 10GM/15ML (ENULOSE) 30ML UDC PO SCH ×2 (14:45→21:14)
[2017-11-17] MEDS: SENNA W/DOCUSATE (SENOKOT S) TABLET PO SCH ×2 (14:46→21:14)
[2017-11-17] MEDS: BISACODYL 10 MG SUPP (DULCOLAX) PR SCH ×2 (14:46→21:19)
[2017-11-17] MEDS ORDERED: CALC1CAP21 PO (14:50)
[2017-11-17] MEDS ORDERED: OXYC-471 PO (14:50)
[2017-11-17] MEDS ORDERED: ACET325T49 PO (14:50)
[2017-11-17] MEDS ORDERED: SENN8.6T68 PO (14:50)
[2017-11-17] MEDS ORDERED: DIPH25CA6 PO (14:50)
[2017-11-17] MEDS ORDERED: FAMO20TA5 PO (14:50)
[2017-11-17] MEDS ORDERED: RIVA10TA PO (14:50)
[2017-11-17 17:11] VITALS: BP 107/53
[2017-11-17 20:00] VITALS: BP 121/73
[2017-11-17] MEDS: LEVOFLOXACIN 750 MG/D5W 150 ML PRE-MIX IV SCH (21:14)
[2017-11-17] MEDS: LATANOPROST 0.005% (XALATAN) OPHTH SOLN 2.5 ML OU SCH (21:18)
[2017-11-18] VITALS (8 sets, daily range): BP systolic 86–133; BP diastolic 50–83
[2017-11-18] MEDS: oxyCODONE/APAP 10/325MG (PERCOCET 10) TABLET PO PRN ×3 (03:49→16:31)
[2017-11-18] MEDS: BISACODYL 10 MG SUPP (DULCOLAX) PR SCH ×3 (03:51→21:11)
[2017-11-18] MEDS: ONDANSETRON 4 MG/2 ML (SDV) Z0FRAN IV PRN ×2 (04:05→10:40)
[2017-11-18] MEDS: NS W/KCL 40 MEQ/L 1,000 ML IV SCH ×3 (04:05→14:30)
[2017-11-18 05:54] LABS: BASOPHILS % (AUTO) 0 % (0-10); EOSINOPHILS # (AUTO) 0.2 10^3/uL (0.0-0.3); EOSINOPHILS % (AUTO) 3 % (0-10); HEMATOCRIT 33 % (35-52); HEMOGLOBIN 11.2 G/DL (11.5-16.0); LYMPHOCYTES # (AUTO) 1.1 X 10^3 (1.0-4.0); LYMPHOCYTES % (AUTO) 14 % (12-44); MEAN CORPUSCULAR HEMOGLOBIN 32 PG (25-34); MEAN CORPUSCULAR HGB CONC 34 G/DL (32-36); MEAN CORPUSCULAR VOLUME 95 FL (80-99); MONOCYTES # (AUTO) 1.1 X 10^3 (0.0-1.0); MONOCYTES % (AUTO) 13 % (0-12); NEUTROPHILS # (AUTO) 5.8 X 10^3 (1.8-7.8); NEUTROPHILS % (AUTO) 70 % (42-75); PLATELET COUNT 158 10^3/uL (130-400); RED BLOOD COUNT 3.49 10^6/uL (4.35-5.85); RED CELL DISTRIBUTION WIDTH 14.9 % (10.0-14.5); WHITE BLOOD COUNT 8.3 10^3/uL (4.3-11.0)
[2017-11-18] MEDS: metroNIDAZOLE 500 MG/100 ML IVPB (PRE-MIX) IV SCH (05:55)
[2017-11-18 06:13] LABS: ALANINE AMINOTRANSFERASE 10 U/L (0-55); ALBUMIN 3.2 GM/DL (3.2-4.5); ALKALINE PHOSPHATASE 71 U/L (40-136); AMYLASE 14 U/L (25-125); BILIRUBIN,TOTAL 0.7 MG/DL (0.1-1.0); BUN/CREATININE RATIO 14; CALCIUM 8.3 MG/DL (8.5-10.1); CARBON DIOXIDE 18 MMOL/L (21-32); CHLORIDE 110 MMOL/L (98-107); CREATININE SERUM 0.66 MG/DL (0.60-1.30); GFR ESTIMATED > 60; GLUCOSE 143 MG/DL (70-105); LIPASE 35 U/L (8-78); POTASSIUM 4.4 MMOL/L (3.6-5.0); SODIUM 134 MMOL/L (135-145); TOTAL PROTEIN 5.7 GM/DL (6.4-8.2)
[2017-11-18] MEDS: LACTULOSE SYRUP 10GM/15ML (ENULOSE) 30ML UDC PO SCH ×2 (08:38→21:10)
[2017-11-18] MEDS: PANTOPRAZOLE 40 MG/10 ML (PROTONIX) VIAL IV SCH ×2 (08:38→20:52)
[2017-11-18] MEDS: SENNA W/DOCUSATE (SENOKOT S) TABLET PO SCH ×2 (08:38→21:10)
[2017-11-18] MEDS: LOSARTAN 25 MG (COZAAR) TAB PO SCH (08:38)
[2017-11-18] MEDS: RIVAROXABAN 10 MG TABLET (XARELTO) PO SCH (08:38)
[2017-11-18] MEDS: SUCRALFATE 1 GM (CARAFATE) TAB PO SCH ×4 (08:43→20:52)
[2017-11-18] MEDS: LEVOTHYROXINE 100 MCG (LEVOTHROID) TAB PO SCH (08:43)
[2017-11-18] MEDS: morphine INJ 10 MG/ML 1ML (SYR OR VIAL) IV PRN (10:46)
[2017-11-18] MEDS ORDERED: ANTACID SUSP 30 ML UDC (MYLANTA) PO NR (12:45)
[2017-11-18] MEDS ORDERED: ANTACID SUSP 30 ML UDC (MYLANTA) PO PRN (12:45)
[2017-11-18] MEDS: HYOSCYAMINE 0.125 MG (LEVSIN) TAB PO SCH (16:32)
--- NOTE | 2017-11-18 18:43 | Progress Note (SOAP) ---
Subjective Date Seen by Provider: Nov 18, 2017 Time Seen by Provider: 12:30 Subjective/Events-last exam Fwup acute pancreatitis, cholelithiasis, pancreatic mass, constipation. Still having abdominal bloating/gas but is now having diarrhea. Objective Exam Vital Signs Date Time Temp Pulse Resp B/P (MAP) Pulse Ox O2 Delivery O2 Flow Rate FiO2 11/18/17 16:03 120 90/50 (63) 11/18/17 15:52 100.4 125 16 86/53 (64) 91 Room Air 11/18/17 12:00 98.0 82 18 128/56 (80) 93 Room Air 11/18/17 08:00 97.5 77 20 121/54 (76) 93 Room Air 11/18/17 04:00 97.8 69 20 133/60 (84) 96 Room Air 11/18/17 00:00 97.7 77 20 132/60 (84) 95 Room Air 11/17/17 20:00 98.6 74 20 121/73 (89) 96 Room Air I & O 11/18/17 07:00 Intake Total 1825 ml Output Total 2250 ml Balance -425 ml Capillary Refill : Less Than 3 SecondsLess Than 3 Seconds General Appearance: No Apparent Distress Neck: Supple Respiratory: Lungs Clear Cardiovascular: Regular Rate, Rhythm Gastrointestinal: normal bowel sounds, soft, distended, tenderness (generalized ) Extremity: Non Tender, No Calf Tenderness Neurologic/Psychiatric: Alert, Oriented x3 Results Lab Laboratory Tests 11/18/17 05:40: White Blood Count 8.3, Red Blood Count 3.49L, Hemoglobin 11.2L, Hematocrit 33L, Mean Corpuscular Volume 95, Mean Corpuscular Hemoglobin 32, Mean Corpuscular Hemoglobin Concent 34, Red Cell Distribution Width 14.9H, Platelet Count 158, Mean Platelet Volume 10.0, Neutrophils (%) (Auto) 70, Lymphocytes (%) (Auto) 14 , Monocytes (%) (Auto) 13H, Eosinophils (%) (Auto) 3, Basophils (%) (Auto) 0, Neutrophils # (Auto) 5.8, Lymphocytes # (Auto) 1.1, Monocytes # (Auto) 1.1H, Eosinophils # (Auto) 0.2, Basophils # (Auto) 0.0, Sodium Level 134L, Potassium Level 4.4, Chloride Level 110H, Carbon Dioxide Level 18L, Anion Gap 6, Blood Urea Nitrogen 9, Creatinine 0.66, Estimat Glomerular Filtration Rate > 60, BUN/ Creatinine Ratio 14, Glucose Level 143H, Calcium Level 8.3L, Total Bilirubin 0.7 , Aspartate Amino Transf (AST/SGOT) 18, Alanine Aminotransferase (ALT/SGPT) 10, Alkaline Phosphatase 71, Total Protein 5.7L, Albumin 3.2, Amylase Level 14L, Lipase 35 Microbiology 11/15/17 Blood Culture - Preliminary, Resulted No growth 11/15/17 Urine Culture - Final, Complete Klebsiella pneumoniae Assessment/Plan Assessment/Plan Assess & Plan/Chief Complaint 1. Acute Pancreatitis--improved 2. Cholelithiasis--holding on GB removal this hospital stay 3. Pancreatic Mass--Patient does want biopsy done 4. Constipation--now with diarrhea so will add levsin and maalox for abdominal gas/bloating Clinical Quality Measures DVT/VTE Risk/Contraindication: Risk Factor Score Per Nursin RFS Level Per Nursing on Admit: 4+=Very High DARRELL GONSALEZ DO Nov 18, 2017 6:43 pm
[2017-11-18] MEDS ORDERED: fentaNYL INJECTION 100 MCG/2 ML AMP ONE (20:23)
[2017-11-18] MEDS: fentaNYL INJECTION 100 MCG/2 ML AMP IVP PRN ×2 (20:31→21:55)
[2017-11-18] MEDS: cefTRIAXone 1 GM/NS 100 ML IVPB IV SCH ×2 (20:52)
[2017-11-18] MEDS: LATANOPROST 0.005% (XALATAN) OPHTH SOLN 2.5 ML OU SCH (20:57)
--- NOTE | 2017-11-18 21:49 | Progress Note (SOAP) ---
Subjective Date Seen by Provider: Nov 18, 2017 Time Seen by Provider: 21:00 Subjective/Events-last exam states epigastric and back pain today. this also affected appetite however no nausea/vomiting. no fever/chills. Objective Exam Vital Signs Date Time Temp Pulse Resp B/P (MAP) Pulse Ox O2 Delivery O2 Flow Rate FiO2 11/18/17 20:28 90 102/58 (73) 11/18/17 20:08 Room Air 11/18/17 18:39 99.3 115 16 88/52 (64) 97 Room Air 11/18/17 16:03 120 90/50 (63) 11/18/17 15:52 100.4 125 16 86/53 (64) 91 Room Air 11/18/17 12:00 98.0 82 18 128/56 (80) 93 Room Air 11/18/17 08:00 97.5 77 20 121/54 (76) 93 Room Air 11/18/17 04:00 97.8 69 20 133/60 (84) 96 Room Air 11/18/17 00:00 97.7 77 20 132/60 (84) 95 Room Air I & O 11/18/17 07:00 Intake Total 1825 ml Output Total 2250 ml Balance -425 ml Capillary Refill : Less Than 3 SecondsLess Than 3 Seconds General Appearance: No Apparent Distress HEENT: PERRL/EOMI Neck: Full Range of Motion Respiratory: Chest Non Tender, Lungs Clear, Normal Breath Sounds Cardiovascular: Regular Rate, Rhythm Gastrointestinal: soft, tenderness Extremity: Normal Capillary Refill Neurologic/Psychiatric: Alert, Oriented x3 Skin: Normal Color Lymphatic: No Adenopathy Results Lab Laboratory Tests 11/18/17 05:40: White Blood Count 8.3, Red Blood Count 3.49L, Hemoglobin 11.2L, Hematocrit 33L, Mean Corpuscular Volume 95, Mean Corpuscular Hemoglobin 32, Mean Corpuscular Hemoglobin Concent 34, Red Cell Distribution Width 14.9H, Platelet Count 158, Mean Platelet Volume 10.0, Neutrophils (%) (Auto) 70, Lymphocytes (%) (Auto) 14 , Monocytes (%) (Auto) 13H, Eosinophils (%) (Auto) 3, Basophils (%) (Auto) 0, Neutrophils # (Auto) 5.8, Lymphocytes # (Auto) 1.1, Monocytes # (Auto) 1.1H, Eosinophils # (Auto) 0.2, Basophils # (Auto) 0.0, Sodium Level 134L, Potassium Level 4.4, Chloride Level 110H, Carbon Dioxide Level 18L, Anion Gap 6, Blood Urea Nitrogen 9, Creatinine 0.66, Estimat Glomerular Filtration Rate > 60, BUN/ Creatinine Ratio 14, Glucose Level 143H, Calcium Level 8.3L, Total Bilirubin 0.7 , Aspartate Amino Transf (AST/SGOT) 18, Alanine Aminotransferase (ALT/SGPT) 10, Alkaline Phosphatase 71, Total Protein 5.7L, Albumin 3.2, Amylase Level 14L, Lipase 35 Microbiology 11/15/17 Blood Culture - Preliminary, Resulted No growth 11/15/17 Urine Culture - Final, Complete Klebsiella pneumoniae Assessment/Plan Assessment/Plan Assess & Plan/Chief Complaint UTI, cholelithiasis, pancreatic mass. labs normalized. etiology of symptoms multifactorial. will recommend UTI treatment for now and continued pain more RUQ with meals, would then recommend lap fernando. if pain more continuous and more related to back pain, would feel pancreatic lesion more of cause and recommend continued pain control and then eventual GI consult for endoscopic u/s and biopsy. Clinical Quality Measures DVT/VTE Risk/Contraindication: Risk Factor Score Per Nursin RFS Level Per Nursing on Admit: 4+=Very High BOB SCHREIBER MD Nov 18, 2017 21:49
[2017-11-19] VITALS: BP 114/55
[2017-11-19] MEDS: HYOSCYAMINE 0.125 MG (LEVSIN) TAB PO SCH ×5 (00:41→23:33)
[2017-11-19] MEDS: fentaNYL INJECTION 100 MCG/2 ML AMP IVP PRN ×2 (00:42→12:48)
[2017-11-19] MEDS: NS W/KCL 40 MEQ/L 1,000 ML IV SCH ×3 (01:13→20:56)
[2017-11-19 04:00] VITALS: BP 106/50
[2017-11-19 05:49] LABS: BASOPHILS % (AUTO) 0 % (0-10); EOSINOPHILS # (AUTO) 0.2 10^3/uL (0.0-0.3); EOSINOPHILS % (AUTO) 1 % (0-10); HEMATOCRIT 34 % (35-52); HEMOGLOBIN 11.5 G/DL (11.5-16.0); LYMPHOCYTES # (AUTO) 1.6 X 10^3 (1.0-4.0); LYMPHOCYTES % (AUTO) 15 % (12-44); MEAN CORPUSCULAR HEMOGLOBIN 32 PG (25-34); MEAN CORPUSCULAR HGB CONC 34 G/DL (32-36); MEAN CORPUSCULAR VOLUME 95 FL (80-99); MEAN PLATELET VOLUME 9.6 FL (7.4-10.4); MONOCYTES # (AUTO) 1.4 X 10^3 (0.0-1.0); MONOCYTES % (AUTO) 12 % (0-12); NEUTROPHILS # (AUTO) 7.8 X 10^3 (1.8-7.8); NEUTROPHILS % (AUTO) 71 % (42-75); PLATELET COUNT 176 10^3/uL (130-400); RED CELL DISTRIBUTION WIDTH 14.9 % (10.0-14.5); WHITE BLOOD COUNT 10.9 10^3/uL (4.3-11.0)
[2017-11-19 06:06] LABS: ALANINE AMINOTRANSFERASE 9 U/L (0-55); ALBUMIN 3.1 GM/DL (3.2-4.5); ALKALINE PHOSPHATASE 70 U/L (40-136); AMYLASE 8 U/L (25-125); BILIRUBIN,TOTAL 0.7 MG/DL (0.1-1.0); BUN/CREATININE RATIO 13; CALCIUM 8.1 MG/DL (8.5-10.1); CARBON DIOXIDE 20 MMOL/L (21-32); CHLORIDE 109 MMOL/L (98-107); CREATININE SERUM 0.61 MG/DL (0.60-1.30); GFR ESTIMATED > 60; GLUCOSE 91 MG/DL (70-105); LIPASE 9 U/L (8-78); POTASSIUM 4.3 MMOL/L (3.6-5.0); SODIUM 134 MMOL/L (135-145); TOTAL PROTEIN 5.5 GM/DL (6.4-8.2)
[2017-11-19] MEDS: LEVOTHYROXINE 100 MCG (LEVOTHROID) TAB PO SCH (06:27)
[2017-11-19] MEDS: SUCRALFATE 1 GM (CARAFATE) TAB PO SCH ×4 (06:28→21:04)
[2017-11-19 08:00] VITALS: BP 108/53
[2017-11-19] MEDS: PANTOPRAZOLE 40 MG/10 ML (PROTONIX) VIAL IV SCH ×2 (08:47→20:55)
[2017-11-19] MEDS: RIVAROXABAN 10 MG TABLET (XARELTO) PO SCH (08:47)
[2017-11-19] MEDS: BISACODYL 10 MG SUPP (DULCOLAX) PR SCH ×2 (08:47→21:00)
[2017-11-19] MEDS: LACTULOSE SYRUP 10GM/15ML (ENULOSE) 30ML UDC PO SCH ×2 (08:47→21:00)
[2017-11-19] MEDS: SENNA W/DOCUSATE (SENOKOT S) TABLET PO SCH ×2 (08:47→20:55)
[2017-11-19] MEDS: LOSARTAN 25 MG (COZAAR) TAB PO SCH (08:47)
[2017-11-19 12:00] VITALS: BP 100/50
--- NOTE | 2017-11-19 14:36 | Progress Note (SOAP) ---
Subjective Date Seen by Provider: Nov 19, 2017 Time Seen by Provider: 14:00 Subjective/Events-last exam doing better today. minimal back/abd pain. hungry with no nausea. no fever/ chills. Objective Exam Vital Signs Date Time Temp Pulse Resp B/P (MAP) Pulse Ox O2 Delivery O2 Flow Rate FiO2 11/19/17 12:00 97.3 68 18 100/50 (67) 98 Room Air 11/19/17 08:00 97.6 74 18 108/53 (71) 97 Room Air 11/19/17 04:00 98.0 70 18 106/50 (68) 98 Room Air 11/19/17 00:00 97.3 109 17 114/55 (74) 95 Room Air 11/18/17 20:28 90 102/58 (73) 11/18/17 20:08 Room Air 11/18/17 18:39 99.3 115 16 88/52 (64) 97 Room Air 11/18/17 16:03 120 90/50 (63) 11/18/17 15:52 100.4 125 16 86/53 (64) 91 Room Air I & O 11/19/17 07:00 Intake Total 3650 ml Output Total 400 ml Balance 3250 ml Capillary Refill : Less Than 3 SecondsLess Than 3 Seconds General Appearance: No Apparent Distress HEENT: PERRL/EOMI Neck: Full Range of Motion Respiratory: Chest Non Tender Cardiovascular: Regular Rate, Rhythm Gastrointestinal: normal bowel sounds Extremity: Normal Capillary Refill Neurologic/Psychiatric: Alert, Oriented x3 Skin: Normal Color Lymphatic: No Adenopathy Results Lab Laboratory Tests 11/19/17 05:40: White Blood Count 10.9, Red Blood Count 3.60L, Hemoglobin 11.5, Hematocrit 34L, Mean Corpuscular Volume 95, Mean Corpuscular Hemoglobin 32, Mean Corpuscular Hemoglobin Concent 34, Red Cell Distribution Width 14.9H, Platelet Count 176, Mean Platelet Volume 9.6, Neutrophils (%) (Auto) 71, Lymphocytes (%) (Auto) 15, Monocytes (%) (Auto) 12, Eosinophils (%) (Auto) 1, Basophils (%) (Auto) 0, Neutrophils # (Auto) 7.8, Lymphocytes # (Auto) 1.6, Monocytes # (Auto) 1.4H, Eosinophils # (Auto) 0.2, Basophils # (Auto) 0.0, Sodium Level 134L, Potassium Level 4.3, Chloride Level 109H, Carbon Dioxide Level 20L, Anion Gap 5, Blood Urea Nitrogen 8, Creatinine 0.61, Estimat Glomerular Filtration Rate > 60, BUN/ Creatinine Ratio 13, Glucose Level 91, Calcium Level 8.1L, Total Bilirubin 0.7, Aspartate Amino Transf (AST/SGOT) 15, Alanine Aminotransferase (ALT/SGPT) 9, Alkaline Phosphatase 70, Total Protein 5.5L, Albumin 3.1L, Amylase Level 8L, Lipase 9 Microbiology 11/15/17 Blood Culture - Preliminary, Resulted No growth 11/15/17 Urine Culture - Final, Complete Klebsiella pneumoniae Assessment/Plan Assessment/Plan Assess & Plan/Chief Complaint UTI, cholelithiasis, pancreatic mass. labs normalized. etiology of symptoms multifactorial. will recommend UTI treatment for now and continued pain more RUQ with meals, would then recommend lap fernando. if pain more continuous and more related to back pain, would feel pancreatic lesion more of cause and recommend continued pain control and then eventual GI consult for endoscopic u/s and biopsy. symptoms improved today. increase diet. Clinical Quality Measures DVT/VTE Risk/Contraindication: Risk Factor Score Per Nursin RFS Level Per Nursing on Admit: 4+=Very High BOB SCHREIBER MD Nov 19, 2017 2:36 pm
[2017-11-19 16:56] VITALS: BP 111/53
[2017-11-19] MEDS: oxyCODONE/APAP 10/325MG (PERCOCET 10) TABLET PO PRN (20:00)
[2017-11-19 20:14] VITALS: BP 110/52
[2017-11-19] MEDS: cefTRIAXone 1 GM/NS 100 ML IVPB IV SCH ×2 (20:55)
[2017-11-19] MEDS: LATANOPROST 0.005% (XALATAN) OPHTH SOLN 2.5 ML OU SCH (21:00)
[2017-11-20] VITALS: BP 97/56
[2017-11-20 05:36] LABS: BASOPHILS % (AUTO) 0 % (0-10); EOSINOPHILS # (AUTO) 0.3 10^3/uL (0.0-0.3); EOSINOPHILS % (AUTO) 6 % (0-10); HEMATOCRIT 31 % (35-52); HEMOGLOBIN 10.4 G/DL (11.5-16.0); LYMPHOCYTES # (AUTO) 1.5 X 10^3 (1.0-4.0); LYMPHOCYTES % (AUTO) 27 % (12-44); MEAN CORPUSCULAR HEMOGLOBIN 32 PG (25-34); MEAN CORPUSCULAR HGB CONC 34 G/DL (32-36); MEAN CORPUSCULAR VOLUME 95 FL (80-99); MEAN PLATELET VOLUME 9.2 FL (7.4-10.4); MONOCYTES # (AUTO) 0.8 X 10^3 (0.0-1.0); MONOCYTES % (AUTO) 13 % (0-12); NEUTROPHILS # (AUTO) 3.1 X 10^3 (1.8-7.8); NEUTROPHILS % (AUTO) 54 % (42-75); PLATELET COUNT 169 10^3/uL (130-400); RED BLOOD COUNT 3.26 10^6/uL (4.35-5.85); RED CELL DISTRIBUTION WIDTH 14.9 % (10.0-14.5); WHITE BLOOD COUNT 5.7 10^3/uL (4.3-11.0)
[2017-11-20] MEDS: SUCRALFATE 1 GM (CARAFATE) TAB PO SCH ×4 (05:49→20:49)
[2017-11-20] MEDS: LEVOTHYROXINE 100 MCG (LEVOTHROID) TAB PO SCH (05:49)
[2017-11-20] MEDS: HYOSCYAMINE 0.125 MG (LEVSIN) TAB PO SCH ×4 (05:49→23:30)
[2017-11-20 06:02] LABS: ALANINE AMINOTRANSFERASE 12 U/L (0-55); ALKALINE PHOSPHATASE 64 U/L (40-136); AMYLASE 11 U/L (25-125); BILIRUBIN,TOTAL 0.4 MG/DL (0.1-1.0); BUN/CREATININE RATIO 10; CALCIUM 8.2 MG/DL (8.5-10.1); CARBON DIOXIDE 22 MMOL/L (21-32); CHLORIDE 112 MMOL/L (98-107); CREATININE SERUM 0.59 MG/DL (0.60-1.30); GFR ESTIMATED > 60; GLUCOSE 93 MG/DL (70-105); LIPASE 9 U/L (8-78); POTASSIUM 4.3 MMOL/L (3.6-5.0); SODIUM 138 MMOL/L (135-145)
[2017-11-20] MEDS: oxyCODONE/APAP 10/325MG (PERCOCET 10) TABLET PO PRN ×2 (07:42→20:50)
[2017-11-20] MEDS: RIVAROXABAN 10 MG TABLET (XARELTO) PO SCH (07:42)
[2017-11-20] MEDS: LACTULOSE SYRUP 10GM/15ML (ENULOSE) 30ML UDC PO SCH ×2 (07:43→20:51)
[2017-11-20] MEDS: SENNA W/DOCUSATE (SENOKOT S) TABLET PO SCH ×2 (07:44→20:51)
[2017-11-20] MEDS: BISACODYL 10 MG SUPP (DULCOLAX) PR SCH ×2 (07:44→20:51)
[2017-11-20] MEDS: NS W/KCL 40 MEQ/L 1,000 ML IV SCH ×2 (07:49→20:49)
[2017-11-20] MEDS: LOSARTAN 25 MG (COZAAR) TAB PO SCH (07:51)
[2017-11-20 08:00] VITALS: BP 145/63
--- NOTE | 2017-11-20 08:38 | Progress Note ---
Subjective Date Seen by Provider: Nov 19, 2017 Time Seen by Provider: 18:40 Subjective/Events-last exam PT IS AN 82 Y/O FEMALE WHO IS A CLINIC PATIENT OF DR. GONSALEZ FOR WHOM I AM PIN OR CLIP FASTENER TODAY. SHE REPORTS THAT SHE IS FEELING A LITTLE BETTER TODAY -SHE REPORTS HAVING HAD 3 SMALL MEALS, BUT DOES HAVE SOME RESIDUAL ABDOMINAL DISCOMFORT. SHE REPORTS THAT HER PAIN IS CURRENTLY 4 OUT OF 10. Review of Systems General: Fatigue HEENT: No Head Aches Pulmonary: No Dyspnea, No Cough Cardiovascular: No: Chest Pain Gastrointestinal: Abdominal Pain, No: Nausea Genitourinary: No Dysuria Musculoskeletal: back pain, leg pain Neurological: Weakness, No: Confusion Objective Exam Last Set of Vital Signs Vital Signs Date Time Temp Pulse Resp B/P (MAP) Pulse Ox O2 Delivery O2 Flow Rate FiO2 11/20/17 00:00 97.4 63 17 97/56 (70) 96 Room Air Capillary Refill : Less Than 3 SecondsLess Than 3 Seconds I&O Intake and Output 11/20/17 00:00 Intake Total 4930 ml Output Total 3050 ml Balance 1880 ml Intake Oral 2830 ml IV Total 2100 ml Output Urine Total 2750 ml Urine/Stool Mix 300 ml # Voids 2 # Bowel Movements 2 General: Alert, Oriented X3, Cooperative Lungs: Clear to Auscultation Heart: Regular Rate Abdomen: Normal Bowel Sounds, Other (TTP OVER EPIGASTRIUM) Extremities: Other (LEFT LEG IN WALKING BOOT) Neuro: Normal Speech Psych/Mental Status: Mental Status NL, Mood NL Results Lab Laboratory Tests 11/20/17 05:26: White Blood Count 5.7, Red Blood Count 3.26L, Hemoglobin 10.4L, Hematocrit 31L, Mean Corpuscular Volume 95, Mean Corpuscular Hemoglobin 32, Mean Corpuscular Hemoglobin Concent 34, Red Cell Distribution Width 14.9H, Platelet Count 169, Mean Platelet Volume 9.2, Neutrophils (%) (Auto) 54, Lymphocytes (%) (Auto) 27, Monocytes (%) (Auto) 13H, Eosinophils (%) (Auto) 6, Basophils (%) (Auto) 0, Neutrophils # (Auto) 3.1, Lymphocytes # (Auto) 1.5, Monocytes # (Auto) 0.8, Eosinophils # (Auto) 0.3, Basophils # (Auto) 0.0, Sodium Level 138, Potassium Level 4.3, Chloride Level 112H, Carbon Dioxide Level 22, Anion Gap 4L, Blood Urea Nitrogen 6L, Creatinine 0.59L, Estimat Glomerular Filtration Rate > 60, BUN /Creatinine Ratio 10, Glucose Level 93, Calcium Level 8.2L, Total Bilirubin 0.4 , Aspartate Amino Transf (AST/SGOT) 25, Alanine Aminotransferase (ALT/SGPT) 12, Alkaline Phosphatase 64, Total Protein 5.0L, Albumin 3.0L, Amylase Level 11L, Lipase 9 Microbiology 11/15/17 Blood Culture - Preliminary, Resulted No growth 11/15/17 Urine Culture - Final, Complete Klebsiella pneumoniae Assessment/Plan Assessment/Plan Assess & Plan/Chief Complaint ACUTE PANCREATITIS - IMPROVING - PT HAD MEALS TODAY- MONITOR I/O, ABD PAIN SYMPTOMS. CHOLELITHIASIS - TREATMENT RECOMMENDATIONS PER SURGEON - WAITING ON SURGERY AT THIS TIME, BLAND DIET. PANCREATIC MASS - PT REFUSING BIOPSY KLEBSIELLA UTI - ON ROCEPHIN - CONTINUE FULL COURSE OF TREATMENT -THE PT HAS 7 DAY COURSE PLANNED. HYPERTENSION - STABLE Clinical Quality Measures DVT/VTE Risk/Contraindication: Risk Factor Score Per Nursin RFS Level Per Nursing on Admit: 4+=Very High BRITNI BOJORQUEZ MD Nov 20, 2017 08:38
--- NOTE | 2017-11-20 08:52 | Progress Note ---
Subjective Date Seen by Provider: Nov 20, 2017 Time Seen by Provider: 09:00 Subjective/Events-last exam PT REPORTS THAT SHE IS FEELING BETTER TODAY - SHE DENIES ANY CHEST PAIN, SHE HAS SOME ABDOMINAL PAIN, BUT IT HAS IMPROVED FROM YESTERDAY. SHE REPORTS THAT SHE THINKS SHE WILL BE READY FOR DISCHARGE TOMORROW. Review of Systems General: Fatigue Pulmonary: No Dyspnea, No Cough Cardiovascular: No: Chest Pain Gastrointestinal: Abdominal Pain, No: Nausea Neurological: Weakness Objective Exam Last Set of Vital Signs Vital Signs Date Time Temp Pulse Resp B/P (MAP) Pulse Ox O2 Delivery O2 Flow Rate FiO2 11/20/17 00:00 97.4 63 17 97/56 (70) 96 Room Air Capillary Refill : Less Than 3 SecondsLess Than 3 Seconds I&O Intake and Output 11/20/17 00:00 Intake Total 4930 ml Output Total 3050 ml Balance 1880 ml Intake Oral 2830 ml IV Total 2100 ml Output Urine Total 2750 ml Urine/Stool Mix 300 ml # Voids 2 # Bowel Movements 2 General: Alert, Oriented X3, Cooperative Lungs: Clear to Auscultation Heart: Regular Rate Abdomen: Normal Bowel Sounds, Other (TTP OVER EPIGASTRIUM) Extremities: Other (LEFT LEG IN WALKING BOOT) Neuro: Normal Speech Psych/Mental Status: Mental Status NL, Mood NL Results Lab Laboratory Tests 11/20/17 05:26: White Blood Count 5.7, Red Blood Count 3.26L, Hemoglobin 10.4L, Hematocrit 31L, Mean Corpuscular Volume 95, Mean Corpuscular Hemoglobin 32, Mean Corpuscular Hemoglobin Concent 34, Red Cell Distribution Width 14.9H, Platelet Count 169, Mean Platelet Volume 9.2, Neutrophils (%) (Auto) 54, Lymphocytes (%) (Auto) 27, Monocytes (%) (Auto) 13H, Eosinophils (%) (Auto) 6, Basophils (%) (Auto) 0, Neutrophils # (Auto) 3.1, Lymphocytes # (Auto) 1.5, Monocytes # (Auto) 0.8, Eosinophils # (Auto) 0.3, Basophils # (Auto) 0.0, Sodium Level 138, Potassium Level 4.3, Chloride Level 112H, Carbon Dioxide Level 22, Anion Gap 4L, Blood Urea Nitrogen 6L, Creatinine 0.59L, Estimat Glomerular Filtration Rate > 60, BUN /Creatinine Ratio 10, Glucose Level 93, Calcium Level 8.2L, Total Bilirubin 0.4 , Aspartate Amino Transf (AST/SGOT) 25, Alanine Aminotransferase (ALT/SGPT) 12, Alkaline Phosphatase 64, Total Protein 5.0L, Albumin 3.0L, Amylase Level 11L, Lipase 9 Microbiology 11/15/17 Blood Culture - Preliminary, Resulted No growth 11/15/17 Urine Culture - Final, Complete Klebsiella pneumoniae Assessment/Plan Assessment/Plan Assess & Plan/Chief Complaint ACUTE PANCREATITIS - IMPROVING - PT HAD MEALS TODAY- MONITOR I/O, ABD PAIN SYMPTOMS. CHOLELITHIASIS - TREATMENT RECOMMENDATIONS PER SURGEON - WAITING ON SURGERY AT THIS TIME, BLAND DIET. PANCREATIC MASS - PT REFUSING BIOPSY KLEBSIELLA UTI - ON ROCEPHIN - CONTINUE FULL COURSE OF TREATMENT -THE PT HAS 7 DAY COURSE PLANNED. HYPERTENSION - STABLE UPON DISCHARGE, WILL RETURN TO [facility] Clinical Quality Measures DVT/VTE Risk/Contraindication: Risk Factor Score Per Nursin RFS Level Per Nursing on Admit: 4+=Very High BRITNI BOJORQUEZ MD Nov 20, 2017 08:51
[2017-11-20] MEDS ORDERED: FAMOTIDINE 20MG/2ML IV (PEPCID) IVP PRN (10:30)
[2017-11-20] MEDS: PANTOPRAZOLE 40 MG/10 ML (PROTONIX) VIAL IV SCH ×2 (10:48→20:51)
--- NOTE | 2017-11-20 16:42 | Progress Note (SOAP) ---
Subjective Date Seen by Provider: Nov 20, 2017 Time Seen by Provider: 13:00 Subjective/Events-last exam doing much better. tolerating diet. minimal abdominal pain. Objective Exam Vital Signs Date Time Temp Pulse Resp B/P (MAP) Pulse Ox O2 Delivery O2 Flow Rate FiO2 11/20/17 08:00 98.0 77 20 145/63 (90) 98 Room Air 11/20/17 08:00 Room Air 11/20/17 00:00 97.4 63 17 97/56 (70) 96 Room Air 11/19/17 20:14 96.9 70 18 110/52 (71) 97 Room Air 11/19/17 16:56 97.2 94 18 111/53 (72) 99 Room Air I & O 11/20/17 07:00 Intake Total 3680 ml Output Total 4150 ml Balance -470 ml Capillary Refill : Less Than 3 SecondsLess Than 3 Seconds General Appearance: No Apparent Distress HEENT: PERRL/EOMI Neck: Full Range of Motion Respiratory: Chest Non Tender, Lungs Clear Cardiovascular: Regular Rate, Rhythm Gastrointestinal: normal bowel sounds, non tender, soft Extremity: Normal Capillary Refill Neurologic/Psychiatric: Alert, Oriented x3 Skin: Normal Color Lymphatic: No Adenopathy Results Lab Laboratory Tests 11/20/17 05:26: White Blood Count 5.7, Red Blood Count 3.26L, Hemoglobin 10.4L, Hematocrit 31L, Mean Corpuscular Volume 95, Mean Corpuscular Hemoglobin 32, Mean Corpuscular Hemoglobin Concent 34, Red Cell Distribution Width 14.9H, Platelet Count 169, Mean Platelet Volume 9.2, Neutrophils (%) (Auto) 54, Lymphocytes (%) (Auto) 27, Monocytes (%) (Auto) 13H, Eosinophils (%) (Auto) 6, Basophils (%) (Auto) 0, Neutrophils # (Auto) 3.1, Lymphocytes # (Auto) 1.5, Monocytes # (Auto) 0.8, Eosinophils # (Auto) 0.3, Basophils # (Auto) 0.0, Sodium Level 138, Potassium Level 4.3, Chloride Level 112H, Carbon Dioxide Level 22, Anion Gap 4L, Blood Urea Nitrogen 6L, Creatinine 0.59L, Estimat Glomerular Filtration Rate > 60, BUN /Creatinine Ratio 10, Glucose Level 93, Calcium Level 8.2L, Total Bilirubin 0.4 , Aspartate Amino Transf (AST/SGOT) 25, Alanine Aminotransferase (ALT/SGPT) 12, Alkaline Phosphatase 64, Total Protein 5.0L, Albumin 3.0L, Amylase Level 11L, Lipase 9 Microbiology 11/15/17 Blood Culture - Preliminary, Resulted No growth 11/15/17 Urine Culture - Final, Complete Klebsiella pneumoniae Assessment/Plan Assessment/Plan Assess & Plan/Chief Complaint UTI, cholelithiasis, pancreatic mass. labs normalized. etiology of symptoms multifactorial. will recommend UTI treatment for now and continued pain more RUQ with meals, would then recommend lap fernando. if pain more continuous and more related to back pain, would feel pancreatic lesion more of cause and recommend continued pain control and then eventual GI consult for endoscopic u/s and biopsy. symptoms improved today. increase diet. home soon. f/u in office PRN Clinical Quality Measures DVT/VTE Risk/Contraindication: Risk Factor Score Per Nursin RFS Level Per Nursing on Admit: 4+=Very High BOB SCHREIBER MD Nov 20, 2017 4:42 pm
[2017-11-20 16:49] VITALS: BP 130/60
[2017-11-20] MEDS: cefTRIAXone 1 GM/NS 100 ML IVPB IV SCH ×2 (20:51)
[2017-11-20] MEDS: LATANOPROST 0.005% (XALATAN) OPHTH SOLN 2.5 ML OU SCH (20:52)
[2017-11-21 00:34] VITALS: BP 133/60
[2017-11-21] MEDS: LEVOTHYROXINE 100 MCG (LEVOTHROID) TAB PO SCH (05:38)
[2017-11-21] MEDS: SUCRALFATE 1 GM (CARAFATE) TAB PO SCH ×2 (05:38→11:31)
[2017-11-21] MEDS: HYOSCYAMINE 0.125 MG (LEVSIN) TAB PO SCH (05:38)
[2017-11-21 06:24] LABS: BASOPHILS % (AUTO) 1 % (0-10); EOSINOPHILS # (AUTO) 0.3 10^3/uL (0.0-0.3); EOSINOPHILS % (AUTO) 4 % (0-10); HEMATOCRIT 30 % (35-52); LYMPHOCYTES # (AUTO) 1.6 X 10^3 (1.0-4.0); LYMPHOCYTES % (AUTO) 26 % (12-44); MEAN CORPUSCULAR HEMOGLOBIN 31 PG (25-34); MEAN CORPUSCULAR HGB CONC 33 G/DL (32-36); MEAN CORPUSCULAR VOLUME 94 FL (80-99); MEAN PLATELET VOLUME 9.5 FL (7.4-10.4); MONOCYTES # (AUTO) 0.9 X 10^3 (0.0-1.0); MONOCYTES % (AUTO) 14 % (0-12); NEUTROPHILS # (AUTO) 3.4 X 10^3 (1.8-7.8); NEUTROPHILS % (AUTO) 55 % (42-75); PLATELET COUNT 204 10^3/uL (130-400); RED BLOOD COUNT 3.18 10^6/uL (4.35-5.85); RED CELL DISTRIBUTION WIDTH 14.8 % (10.0-14.5); WHITE BLOOD COUNT 6.2 10^3/uL (4.3-11.0)
[2017-11-21 06:47] LABS: ALANINE AMINOTRANSFERASE 14 U/L (0-55); ALBUMIN 2.9 GM/DL (3.2-4.5); ALKALINE PHOSPHATASE 59 U/L (40-136); AMYLASE 11 U/L (25-125); BUN/CREATININE RATIO 9; CALCIUM 8.2 MG/DL (8.5-10.1); CARBON DIOXIDE 22 MMOL/L (21-32); CHLORIDE 111 MMOL/L (98-107); CREATININE SERUM 0.55 MG/DL (0.60-1.30); GFR ESTIMATED > 60; GLUCOSE 96 MG/DL (70-105); LIPASE 7 U/L (8-78); POTASSIUM 4.1 MMOL/L (3.6-5.0); SODIUM 138 MMOL/L (135-145)
[2017-11-21 07:13] LABS: BILIRUBIN,TOTAL 0.3 MG/DL (0.1-1.0)
[2017-11-21 08:00] VITALS: BP 153/64
[2017-11-21] MEDS: oxyCODONE/APAP 10/325MG (PERCOCET 10) TABLET PO PRN (08:36)
[2017-11-21] MEDS: RIVAROXABAN 10 MG TABLET (XARELTO) PO SCH (08:36)
[2017-11-21] MEDS: LOSARTAN 25 MG (COZAAR) TAB PO SCH (08:36)
[2017-11-21] MEDS: LACTULOSE SYRUP 10GM/15ML (ENULOSE) 30ML UDC PO SCH (08:41)
[2017-11-21] MEDS: SENNA W/DOCUSATE (SENOKOT S) TABLET PO SCH (08:41)
[2017-11-21] MEDS: BISACODYL 10 MG SUPP (DULCOLAX) PR SCH (08:41)
[2017-11-21] MEDS ORDERED: LACT20SO2 PO (08:46)
[2017-11-21] MEDS ORDERED: SUCR1TAB PO (08:46)
[2017-11-21] MEDS ORDERED: OXYC-471 PO (08:46)
--- NOTE | 2017-11-21 08:48 | Discharge Summary ---
Diagnosis/Chief Complaint Date of Admission Nov 15, 2017 at 20:00 Date of Discharge Discharge Date: Nov 21, 2017 Discharge Time: 1100 Admission Diagnosis Admission Diagnosis ACUTE PANCREATITIS CHOLELITHIASIS PANCREATIC MASS KLEBSIELLA UTI HYPERTENSION Discharge Diagnosis ACUTE PANCREATITIS CHOLELITHIASIS PANCREATIC MASS KLEBSIELLA UTI HYPERTENSION Reason Hospital Visit This is an 82-year-old white female clinic patient of Dr. GONSALEZ who presented to the hospital with complaints of abdominal pain and weakness. Extensive workup ensued in the ER and revealed acute UTI with acute pancreatitis. She is a nondrinker of alcohol and has never had pancreatitis before. Elevated BNP is noted so we'll consult cardiology and decrease the IV fluids from 150-100 mL an hour and I appreciate Dr. Tse general surgery consultation. Urine culture is pending but patient was placed on Rocephin empirically. She reports that the nausea vomiting and still continued but improved somewhat. She does report that the morphine only last for about 2 hours so I will increase that to 6 mg every 3 hours to help the pain issue she is still having from the pancreatitis. Checked labs and meds and home medications. She is currently on clear liquid diet. She is very constipated and wants to have a bowel movement. Discharge Summary Discharge Physical Examination Allergies: Coded Allergies: nut - unspecified (Verified Allergy, Severe, HIVES, EDEMA, 03/04/17) Vitals & I&Os Vital Signs Date Time Temp Pulse Resp B/P (MAP) Pulse Ox O2 Delivery O2 Flow Rate FiO2 11/21/17 12:19 71 20 153/64 96 Room Air 11/21/17 08:00 97.6 General Appearance: Alert, Oriented X3, Cooperative Respiratory: Clear to Auscultation Cardiovascular: Regular Rate Abdominal: Normal Bowel Sounds, Other (TTP OVER EPIGASTRIUM) Extremities: Other (LEFT LEG IN WALKING BOOT) Neuro: Normal Speech Psych/Mental Status: Mental Status NL, Mood NL Hospital Course ACUTE PANCREATITIS - IMPROVING - PT HAD MEALS WITHOUT SIGNIFICANT ABDOMINAL PAIN - CONTINUE TO MONITOR I/O, ABD PAIN SYMPTOMS. SURGICAL CONSULT FOLLOWS: UTI, cholelithiasis, pancreatic mass. labs normalized. etiology of symptoms multifactorial. will recommend UTI treatment for now and continued pain more RUQ with meals, would then recommend lap fernando. if pain more continuous and more related to back pain, would feel pancreatic lesion more of cause and recommend continued pain control and then eventual GI consult for endoscopic u/s and biopsy. symptoms improved today. increase diet. home soon. f/u in office PRN CHOLELITHIASIS - TREATMENT RECOMMENDATIONS PER SURGEON - WAITING ON SURGERY AT THIS TIME, BLAND DIET. PANCREATIC MASS - PT REFUSING BIOPSY KLEBSIELLA UTI - ON ROCEPHIN - FULL COURSE OF TREATMENT COMPLETED - CONTINUE TO MONITOR. HYPERTENSION - STABLE UPON DISCHARGE, WILL RETURN TO [facility] CONSULT FOLLOWS: UTI sepsis, Acute pancreatitis, History of diastolic congestive heart failure, Hypertension, Nonobstructive CAD. Plan: UTI sepsis: On IV antibiotics. Acute pancreatitis. Elevated amylase, lipase. Etiology unclear. General surgery following. Chronic diastolic congestive heart failure. Currently no significant shortness of breath. Euvolemic on examination. Mildly elevated BNP. Not in florid congestive heart failure. Will not advise diuretics at this point in time. We will continue to follow. Coronary angiography in 2017 shows mild nonobstructive CAD. Echocardiogram showed normal LV function with mild diastolic dysfunction. At that point in time was started on beta blockers. On Xarelto for previous ankle surgery. Hypertension: Continue losartan. Dr Carrizales to follow from 11/18/2017 Thank you for your consultation. Please call me if you have any questions. Pending Labs Discharge Condition at discharge IMPROVED Instructions to patient/family Please see electronic discharge instructions given to patient. Discharge Medications Reviewed and agree with Discharge Medication list on patient's Discharge Instruction sheet Clinical Quality Measures DVT/VTE Risk/Contraindication: Risk Factor Score Per Nursin RFS Level Per Nursing on Admit: 4+=Very High BRITNI BOJORQUEZ MD Nov 21, 2017 08:48
[2017-11-21] MEDS: PANTOPRAZOLE 40 MG/10 ML (PROTONIX) VIAL IV SCH (09:22)
[2017-11-21 12:19] VITALS: BP 153/64
== END 2017-11-21 12:24 | DRG 439 ==
LOC: EDUNIT# 13:27 → ER 13:28 → 4TH 20:00
PROVIDERS: ADMIT Family Medicine; ATTEND Family Medicine
DX: K85.90 Acute pancreatitis without necrosis or infection, unspecified (principal); N30.00 Acute cystitis without hematuria; K80.20 Calculus of gallbladder without cholecystitis without obstruction; K86.9 Disease of pancreas, unspecified; I11.0 Hypertensive heart disease with heart failure; I50.32 Chronic diastolic (congestive) heart failure; I25.10 Atherosclerotic heart disease of native coronary artery without angina pectoris; Z66 Do not resuscitate; I48.0 Paroxysmal atrial fibrillation; E86.9 Volume depletion, unspecified; E78.00 Pure hypercholesterolemia, unspecified; E03.9 Hypothyroidism, unspecified; K59.00 Constipation, unspecified; H91.10 Presbycusis, unspecified ear; F41.9 Anxiety disorder, unspecified; F32.9 Major depressive disorder, single episode, unspecified; H40.9 Unspecified glaucoma; R01.1 Cardiac murmur, unspecified; R51 Headache; S82.892D Other fracture of left lower leg, subsequent encounter for closed fracture with routine healing; B96.1 Klebsiella pneumoniae [K. pneumoniae] as the cause of diseases classified elsewhere; Z79.01 Long term (current) use of anticoagulants
CPT/HCPCS: 36415; 70450; 71275; 74177; 76705; 80053; 81000; 82150; 82550; 82553; 83605; 83690; 83874; 83880; 84443; 84484; 85007; 85025; 85027; 85610; 85730; 86141; 87040; 87088; 87186; 93005; 93041; 96361; 96365; 96372; 96375; 96376

== ENCOUNTER 2017-12-26 05:28 | Outpatient (CLI) | payer MEDICARE, OTHER ==
[~2017-12-26] VITALS: Ht 167.6 cm; Wt 90.7 kg
[~2017-12-26 05:28] MED LIST changes: +ACET325T49 PO; +CALC1CAP21 PO; +DIPH25CA6 PO; +FAMO20TA5 PO; +LACT20SO2 PO; +MAG30ORA2 PO; +MAGN400O7 PO; +ROPI0.5T PO; +SENN8.6T68 PO; +SUCR1TAB PO
[2017-12-26] MEDS ORDERED: SUCR1TAB PO (14:31)
== END 2017-12-26 14:39 ==
LOC: PREOP 05:28
PROVIDERS: ATTEND Surgery
DX: Z01.818 Encounter for other preprocedural examination (principal); C25.9 Malignant neoplasm of pancreas, unspecified

== ENCOUNTER 2017-12-27 07:56 | Day surgery (SDC) | payer MEDICARE, OTHER ==
[~2017-12-27] VITALS: Ht 167.6 cm; Wt 90.7 kg
[2017-12-27 08:15] VITALS: BP 148/84
[2017-12-27] MEDS ORDERED: ceFAZolin 1 GM/NS 100 ML IVPB IV ONE ×2 (08:15)
[2017-12-27] MEDS ORDERED: ceFAZolin INJECTION 1,000 MG in NS (IVPB) 100 ML IV ONE (09:00)
[2017-12-27] MEDS ORDERED: FAMOTIDINE 20MG/2ML IV (PEPCID) ONE (09:15)
[2017-12-27] MEDS ORDERED: ONDANSETRON 4 MG/2 ML (SDV) Z0FRAN ONE ×2 (09:15→09:29)
[2017-12-27] MEDS ORDERED: BUP/EPI 0.5% 1:200,000 (SENSORCAINE) 30 ML VIAL ONE (09:21)
[2017-12-27] MEDS ORDERED: HEParin (CENTRAL IV FLUSH) 500 UNIT/5 ML SYR ONE (09:21)
[2017-12-27] MEDS ORDERED: LIDOCAINE/EPI 1%-1:200,000 (XYLOCAINE) 10 ML VIAL ONE (09:26)
[2017-12-27] MEDS ORDERED: PROPOFOL INJECTION 50 ML IV ONE (09:29)
[2017-12-27] MEDS ORDERED: LACTATED RINGERS 1,000 ML IV PRN (09:31)
[2017-12-27] MEDS ORDERED: FAMOTIDINE 20MG/2ML IV (PEPCID) IV ONE (09:45)
[2017-12-27] MEDS ORDERED: ONDANSETRON 4 MG/2 ML (SDV) Z0FRAN IV ONE (09:45)
--- NOTE | 2017-12-27 10:08 | Progress Note-Pre Operative ---
Pre-Operative Progress Note H&P Reviewed The H&P was reviewed, patient examined and no changes noted. Date Seen by Provider: December 27, 2017 Time Seen by Provider: 09:00 Date H&P Reviewed: December 27, 2017 Time H&P Reviewed: 09:00 Pre-Operative Diagnosis: pancreatic cancer BOB SCHREIBER MD December 27, 2017 10:08 am
[2017-12-27] MEDS ORDERED: MIDAZOLAM 2 MG/2 ML (VERSED) VIAL ONE (10:09)
[2017-12-27] MEDS ORDERED: morphine INJ 10 MG/ML 1ML (SYR OR VIAL) IVP PRN ×2 (10:15→11:15)
[2017-12-27] MEDS ORDERED: oxyCODONE/APAP 5/325MG (PERCOCET 5) TABLET PO PRN (10:15)
[2017-12-27] MEDS ORDERED: ONDANSETRON 4 MG/2 ML (SDV) Z0FRAN IVP PRN (10:15)
[2017-12-27] MEDS ORDERED: ACETAMINOPHEN 325 MG TABLET/CAPLET (TYLENOL) PO PRN (10:15)
--- NOTE | 2017-12-27 11:10 | Progress Note-Post Operative ---
Post-Operative Progess Note Surgeon (s)/Applications Administrator (s) Surgeon BOB SCHREIBER MD Applications Administrator: none Pre-Operative Diagnosis pancreatic cancer Post-Operative Diagnosis same Procedure & Operative Findings Date of Procedure 12/27/17 Procedure Performed/Findings placement left subclavian groshong implantable catheter under flouroscopy. Anesthesia Type MAC Estimated Blood Loss Estimated blood loss (mL): minimal Specimens/Packing Specimens Removed none BOB SCHREIBER MD December 27, 2017 11:10 am
[2017-12-27] MEDS ORDERED: MEPERIDINE (DEMEROL) INJ 50 MG/ML IVP PRN (11:15)
[2017-12-27 11:40] VITALS: BP 141/59
[2017-12-27 11:41] VITALS: BP 141/59
--- NOTE | 2017-12-27 11:47 | Diagnostic Imaging Report ---
INDICATION: Left central venous catheter evaluation 1127 hrs. Single AP view of the chest is obtained with comparison made study of 09/21/2017. There has been placement of left anterior chest wall port with catheter tip projecting over the upper superior vena cava. There is no evidence of pneumothorax. Overall heart size is within normal limits. There is air trapping bilaterally without consolidation or significant pleural fluid. IMPRESSION: Mild emphysema without evidence of complication post left chest wall port placement. Dictated by: Dictated on workstation # [id number]
[2017-12-27 12:10] VITALS: BP 148/63
--- NOTE | 2017-12-27 13:37 | Diagnostic Imaging Report ---
INDICATION: Undergoing line placement. TECHNIQUE: Single view of the superior chest midline. CORRELATION STUDY: None FINDINGS: Fluoroscopy utilized by Dr. Tse for placement of a central line. Intraoperative view over the central aspect of the upper chest demonstrates limited visualization of a central line on this study. Portions appear be projecting below the left clavicle. Tip not definitively visualized. IMPRESSION: 1. Fluoroscopy utilized for central line placement. The line cannot be well visualized on this examination. Portions of the line appear to be projecting just below the level of the clavicle. If further assessment is desired, post procedure chest radiograph recommended. Dictated by: Dictated on workstation # [id number]
--- NOTE | 2017-12-27 17:41 | OPERATIVE REPORT ---
DATE OF SERVICE: 12/27/2017 ATTENDING PRIMARY CARE PHYSICIAN: Mel Montesinos DO. PREOPERATIVE DIAGNOSIS: Pancreatic cancer. POSTOPERATIVE DIAGNOSIS: Pancreatic cancer. PROCEDURE PERFORMED: Placement of left subclavian Groshong implantable catheter under fluoroscopy. SURGEON: Bob Schreiber MD. ANESTHESIA: Monitored anesthesia care with local. ESTIMATED BLOOD LOSS: Minimal. FINDINGS: Catheter tip at superior vena caval - right atrial junction. DISPOSITION: The patient tolerated the procedure well. INDICATIONS: The patient is an 82-year-old female, who was initially seen in the hospital for nausea, vomiting and abdominal pain. She was found to have cholelithiasis; however, a lesion was also detected on the body of the pancreas. She was able to do better and tolerate food and have adequate pain control and was discharged home. She was then referred to Gastroenterology and underwent an ERCP as well as a biopsy, which did come back consistent with a pancreatic carcinoma. She is scheduled to undergo chemotherapy and will need a Groshong implantable catheter for multiple blood draws as well as IV infusion. DESCRIPTION OF PROCEDURE: The patient was brought to the operating room, laid supine on the table. After adequate IV pain and sedative medications and monitored anesthesia care, the neck and chest were prepped and draped in standard surgical fashion. A 0.5% Marcaine with epinephrine was then used to anesthetize the overlying skin in the left subclavian region and the left subclavian vein was then cannulated withdrawing the venous blood. The guidewire was then inserted without any resistance under fluoroscopy. The guidewire was removed and a skin incision was made using a 15-blade. The dilator and sheath were then introduced over the guidewire. The dilator and the guidewire were then removed and the Groshong catheter was placed until the tip was at the superior vena caval, that is right atrial junction and the sheath was removed. The inner wire within the catheter was then removed and the catheter cut down to size of the port placed onto the catheter. The chest reservoir was then created. The skin incision was extended laterally using a 15-blade. A plane was then created between the subcutaneous fat and the anterior pectoralis fascia using electrocautery as well as blunt dissection. Good hemostasis was observed and the port was placed into the reservoir and then sutured to the pectoralis fascia using interrupted 3-0 Vicryl sutures. The subcutaneous tissue was then reapproximated using 3-0 Vicryl interrupted sutures and the skin was closed with 4-0 Monocryl running subcuticular suture. Wound was then cleaned and covered with Dermabond. The port was accessed with a straight Jacob needle withdrawing the venous blood and heparinized saline pushed in without any resistance. The patient tolerated the procedure well. We will get a post-procedure chest x-ray and once placement confirmed, the port may be accessed and used at any time. Job ID: [id number] DocumentID: [id number] Dictated Date: 12/27/2017 11:15:36 Rn Operating Room Date: 12/27/2017 17:40:20 Dictated By: BOB SCHREIBER MD
== END 2017-12-27 12:20 | disposition home or self-care (01) ==
LOC: SDC 07:56
PROVIDERS: ATTEND Surgery
DX: C25.1 Malignant neoplasm of body of pancreas (principal); I11.0 Hypertensive heart disease with heart failure; I50.9 Heart failure, unspecified; I48.91 Unspecified atrial fibrillation; Z79.899 Other long term (current) drug therapy
CPT/HCPCS: 71045; 87081

== ENCOUNTER → 2018-01-01 | Outpatient (CLI) | payer MEDICARE, OTHER ==
[~2018-01-01] MED LIST changes: +CARB1DRO OU; +HYDR1LIQ3 PO; +LORA2ORA5 PO; +MINE3.5O29 OU; +ONDA4TAB8 SL; +SALI45SP MM
--- NOTE | 2018-01-01 15:40 | Diagnostic Imaging Report ---
Indication: Leg swelling Duplex ultrasound of the venous systems of lower extremities was done with grayscale, spectral waveform and color Doppler flow analysis. The veins have good color filling and compressibility. There is normal spontaneous and augmented flow. Impression: Negative venous Doppler of lower extremities Dictated by: Dictated on workstation # [id number]
== END ==
LOC: RAD 14:41
PROVIDERS: ATTEND Nurse Practitioner Adult Health
DX: R60.0 Localized edema (principal); C25.9 Malignant neoplasm of pancreas, unspecified
CPT/HCPCS: 93970

== ENCOUNTER 2018-01-07 13:09 | Outpatient (RCR) | payer MEDICARE, OTHER ==
[2017-12-24 15:14] LABS: BASOPHILS % (AUTO) 1 % (0-10); EOSINOPHILS # (AUTO) 0.3 10^3/uL (0.0-0.3); EOSINOPHILS % (AUTO) 4 % (0-10); HEMATOCRIT 37 % (35-52); HEMOGLOBIN 12.3 G/DL (11.5-16.0); LYMPHOCYTES # (AUTO) 2.3 X 10^3 (1.0-4.0); LYMPHOCYTES % (AUTO) 34 % (12-44); MEAN CORPUSCULAR HEMOGLOBIN 31 PG (25-34); MEAN CORPUSCULAR HGB CONC 33 G/DL (32-36); MEAN CORPUSCULAR VOLUME 92 FL (80-99); MEAN PLATELET VOLUME 9.2 FL (7.4-10.4); MONOCYTES # (AUTO) 0.8 X 10^3 (0.0-1.0); MONOCYTES % (AUTO) 13 % (0-12); NEUTROPHILS # (AUTO) 3.2 X 10^3 (1.8-7.8); NEUTROPHILS % (AUTO) 49 % (42-75); PLATELET COUNT 212 10^3/uL (130-400); RED BLOOD COUNT 3.99 10^6/uL (4.35-5.85); RED CELL DISTRIBUTION WIDTH 15.1 % (10.0-14.5); WHITE BLOOD COUNT 6.5 10^3/uL (4.3-11.0)
[2017-12-24 15:38] LABS: ALANINE AMINOTRANSFERASE 11 U/L (0-55); ALKALINE PHOSPHATASE 81 U/L (40-136); BILIRUBIN,TOTAL 0.6 MG/DL (0.1-1.0); BUN/CREATININE RATIO 16; CALCIUM 9.4 MG/DL (8.5-10.1); CARBON DIOXIDE 21 MMOL/L (21-32); CHLORIDE 105 MMOL/L (98-107); CREATININE SERUM 0.68 MG/DL (0.60-1.30); GFR ESTIMATED > 60; GLUCOSE 89 MG/DL (70-105); POTASSIUM 3.9 MMOL/L (3.6-5.0); SODIUM 138 MMOL/L (135-145)
[~2018-01-07] VITALS: Ht 165.1 cm; Wt 85.3 kg
[~2018-01-07 13:09] MED LIST changes: -CARB1DRO OU; +GEMCITABINE HCL (GENERIC) 1,000 MG, GEMCITABINE HCL (GENERIC) 300 MG in NS (IVPB) CANCE... IV SCH; -HYDR1LIQ3 PO; -LORA2ORA5 PO; -MINE3.5O29 OU; +NS IV 1000 ML (CANCER CTR) IV SCH; -ONDA4TAB8 SL; +PACLitaxel PROTEIN 160 MG in EMPTY IV BAG (PVC) CANCER CTR 1 EA IV SCH; +PALONOSETRON 0.25 MG, DEXAMETHASONE 10 MG/NS 50 ML IVPB IV PRN; -SALI45SP MM
[2018-01-07 13:39] LABS: BASOPHILS % (AUTO) 0 % (0-10); EOSINOPHILS % (AUTO) 0 % (0-10); HEMATOCRIT 28 % (35-52); HEMOGLOBIN 9.3 G/DL (11.5-16.0); LYMPHOCYTES # (AUTO) 1.4 X 10^3 (1.0-4.0); LYMPHOCYTES % (AUTO) 25 % (12-44); MEAN CORPUSCULAR HEMOGLOBIN 30 PG (25-34); MEAN CORPUSCULAR HGB CONC 33 G/DL (32-36); MEAN CORPUSCULAR VOLUME 91 FL (80-99); MEAN PLATELET VOLUME 9.5 FL (7.4-10.4); MONOCYTES # (AUTO) 0.3 X 10^3 (0.0-1.0); MONOCYTES % (AUTO) 5 % (0-12); NEUTROPHILS % (AUTO) 69 % (42-75); PLATELET COUNT 125 10^3/uL (130-400); RED BLOOD COUNT 3.06 10^6/uL (4.35-5.85); RED CELL DISTRIBUTION WIDTH 14.8 % (10.0-14.5); WHITE BLOOD COUNT 5.7 10^3/uL (4.3-11.0)
[2018-01-07 14:12] LABS: ALANINE AMINOTRANSFERASE 21 U/L (0-55); ALBUMIN 3.4 GM/DL (3.2-4.5); ALKALINE PHOSPHATASE 113 U/L (40-136); BILIRUBIN,TOTAL 1.4 MG/DL (0.1-1.0); BUN/CREATININE RATIO 10; CALCIUM 8.5 MG/DL (8.5-10.1); CARBON DIOXIDE 22 MMOL/L (21-32); CHLORIDE 104 MMOL/L (98-107); CREATININE SERUM 0.68 MG/DL (0.60-1.30); GFR ESTIMATED > 60; GLUCOSE 111 MG/DL (70-105); SODIUM 134 MMOL/L (135-145); TOTAL PROTEIN 6.1 GM/DL (6.4-8.2)
[2018-01-07] MEDS ORDERED: NS IV SCH (14:15)
[2018-01-07] MEDS ORDERED: PACLitaxel PROTEIN 130 MG in EMPTY IV BAG (PVC) CANCER CTR 1 EA IV SCH (14:15)
[2018-01-07] MEDS ORDERED: GEMCITABINE HCL IV SCH (14:15)
[2018-01-23] MEDS ORDERED: HYDR1LIQ3 PO (13:02)
[2018-01-24] MEDS ORDERED: ONDA4TAB8 SL (13:46)
[2018-01-24] MEDS ORDERED: CARB1DRO OU (13:46)
[2018-01-24] MEDS ORDERED: SALI45SP MM (13:46)
[2018-01-24] MEDS ORDERED: LORA2ORA5 PO (13:46)
[2018-01-24] MEDS ORDERED: MINE3.5O29 OU (13:46)
== END 2018-03-24 | disposition home or self-care (01) ==
LOC: ONC 13:09
PROVIDERS: ATTEND Internal Medicine Hematology & Oncology
DX: Z51.11 Encounter for antineoplastic chemotherapy (principal); C25.1 Malignant neoplasm of body of pancreas; I25.10 Atherosclerotic heart disease of native coronary artery without angina pectoris; E03.9 Hypothyroidism, unspecified; I10 Essential (primary) hypertension; E78.5 Hyperlipidemia, unspecified; I08.0 Rheumatic disorders of both mitral and aortic valves; I87.2 Venous insufficiency (chronic) (peripheral); K59.00 Constipation, unspecified; Z87.440 Personal history of urinary (tract) infections; Z96.643 Presence of artificial hip joint, bilateral; Z79.899 Other long term (current) drug therapy
CPT/HCPCS: 36415; 36591; 80053; 85025; 86301; 96375; 96413; 96417; 99214

== ENCOUNTER 2018-01-10 22:30 | Inpatient (IN) | payer MEDICARE, OTHER ==
[~2018-01-10] VITALS: Ht 162.6 cm; Wt 112.6 kg
[~2018-01-10 22:30] MED LIST changes: -GEMCITABINE HCL (GENERIC) 1,000 MG, GEMCITABINE HCL (GENERIC) 300 MG in NS (IVPB) CANCE... IV SCH; -NS IV 1000 ML (CANCER CTR) IV SCH; -PACLitaxel PROTEIN 160 MG in EMPTY IV BAG (PVC) CANCER CTR 1 EA IV SCH; -PALONOSETRON 0.25 MG, DEXAMETHASONE 10 MG/NS 50 ML IVPB IV PRN
--- NOTE | 2018-01-10 22:43 | ED General ---
General Chief Complaint: General Problems/Pain Stated Complaint: WEAKNESS Source of Information: Patient, EMS Exam Limitations: No Limitations History of Present Illness Date Seen by Provider: January 10, 2018 Time Seen by Provider: 22:38 Initial Comments this wonderfully pleasant lady presents to the emergency room per EMS from home. She lives at home with her daughter. Patient was sitting down on the toilet this evening and slid off the edge of the toilet. There are no injuries from the fall but the daughter was unable to get the patient up. Patient is currently undergoing chemotherapy for pancreatic cancer. Patient also reports a history of CHF. Patient tells me that she is tired of chemotherapy and the way that it makes her feel. She is going to stop it. I asked if she has any advanced directives and she states that she is a DO NOT RESUSCITATE status. past she ever discussed hospice. She states that her daughter brought her left ear today and she would very much before hospice. She states "I'm ready to go home and be with the Lord any time." Timing/Duration: Getting Worse Severity: Moderate Associated Systoms: Weakness Allergies and Home Medications Allergies Coded Allergies: nut - unspecified (Verified Allergy, Severe, HIVES, EDEMA, 03/04/17) Home Medications Acetaminophen 325 Mg Tablet, 325-650 MG PO Q6H PRN for PAIN-MILD, (Reported) TAKES 1-2 OF A (325 MG) TABLET Calcium Carbonate/Vitamin D3 1 Each Capsule, 1 TAB PO DAILY, (Reported) Diphenhydramine HCl 25 Mg Capsule, 25 MG PO Q6H PRN for RASH, (Reported) Famotidine 20 Mg Tablet, 20 MG PO HS, (Reported) Latanoprost 2.5 Ml Drops, 1 DROP OU HS, (Reported) Levothyroxine Sodium 100 Mcg Tablet, 100 MCG PO DAILY, (Reported) Losartan Potassium 25 Mg Tablet, 25 MG PO DAILY, (Reported) Multivitamins-Min/FA/Ginkgo 1 Each Tablet, 1 TAB PO 1200, (Reported) Oxycodone HCl/Acetaminophen 1 Each Tablet, 1-2 TAB PO Q4H PRN for PAIN-MODERATE Prescribed by: BRITNI BOJORQUEZ on 11/21/17 0846 Ropinirole HCl 0.5 Mg Tablet, 0.5 MG PO HS, (Reported) Sennosides 8.6 Mg Tablet, 8.6 MG PO BID, (Reported) HOLD FOR LOOSE STOOLS Sucralfate 1 Gm Tablet, 1 GM PO ACHS, (Reported) Patient Home Medication List Home Medication List Reviewed: Yes Review of Systems Constitutional: see HPI EENTM: see HPI Respiratory: no symptoms reported Cardiovascular: no symptoms reported Genitourinary: no symptoms reported Musculoskeletal: no symptoms reported Skin: no symptoms reported Psychiatric/Neurological: No Symptoms Reported Past Yennzdu-Nigzhb-Akalji Hx Patient Social History 2nd Hand Smoke Exposure: No Recent Hopitalizations: No Immunizations Up To Date Tetanus Booster (TDap): Unknown PED Vaccines UTD: No Date of Pneumonia Vaccine: Jun 11, 2017 Date of Influenza Vaccine: Jun 11, 2017 Seasonal Allergies Seasonal Allergies: No Past Medical History Surgeries: Yes Section, Eye Surgery, Hysterectomy, Orthopedic Respiratory: No Cardiac: Yes Atrial Fibrillation, Heart Murmur, Hypertension Neurological: No Reproductive Disorders: No Genitourinary: No Gastrointestinal: Yes Gastroesophageal Reflux Musculoskeletal: No Endocrine: Yes Hypothyroidsim HEENT: Yes Glaucoma Hearing Impairment: Hard of Hearing Cancer: No Pancreatic Psychosocial: No Integumentary: No Blood Disorders: No Family Medical History No Pertinent Family Hx, Hypertension Physical Exam Vital Signs Vital Signs - First Documented 01/10/18 23:05 Temp 101.3 Pulse 118 Resp 18 B/P (MAP) 78/58 (65) Pulse Ox 95 O2 Delivery Room Air Capillary Refill : General Appearance: No Apparent Distress, WD/WN, Other (week, very frail appearing, dry mucous membranes, sunken eyes, but the most pleasant personality. Alert and oriented.) Eyes: Bilateral Eye Normal Inspection, Bilateral Eye PERRL, Bilateral Eye EOMI HEENT: PERRL/EOMI, TMs Normal Neck: Full Range of Motion, Normal Inspection, Other (no jugular vein distention) Respiratory: No Accessory Muscle Use, No Respiratory Distress, Wheezing Cardiovascular: Regular Rate, Rhythm, Normal Peripheral Pulses Gastrointestinal: Normal Bowel Sounds, Non Tender, Soft Extremity: Normal Capillary Refill, Normal Inspection, Swelling (bilateral lower extremities) Neurologic/Psychiatric: Alert, Oriented x3 Skin: Normal Color, Warm/Dry Progress/Results/Core Measures Suspected Sepsis SIRS Temperature: Pulse: Respiratory Rate: Laboratory Tests 01/10/18 22:40: White Blood Count 1.6L Blood Pressure / Mean: Laboratory Tests 01/10/18 22:40: Creatinine 1.47H, Platelet Count 94L, Total Bilirubin 2.3H Results/Orders Lab Results Laboratory Tests Test 01/10/18 22:40 Range/Units White Blood Count 1.6 L 4.3-11.0 10^3/uL Red Blood Count 2.78 L 4.35-5.85 10^6/uL Hemoglobin 8.4 L 11.5-16.0 G/DL Hematocrit 25 L 35-52 % Mean Corpuscular Volume 89 80-99 FL Mean Corpuscular Hemoglobin 30 25-34 PG Mean Corpuscular Hemoglobin Concent 34 32-36 G/DL Red Cell Distribution Width 14.9 H 10.0-14.5 % Platelet Count 94 L 130-400 10^3/uL Mean Platelet Volume 10.9 H 7.4-10.4 FL Neutrophils (%) (Auto) 83 H 42-75 % Lymphocytes (%) (Auto) 14 12-44 % Monocytes (%) (Auto) 1 0-12 % Eosinophils (%) (Auto) 1 0-10 % Basophils (%) (Auto) 1 0-10 % Neutrophils # (Auto) 1.3 L 1.8-7.8 X 10^3 Lymphocytes # (Auto) 0.2 L 1.0-4.0 X 10^3 Monocytes # (Auto) 0.0 0.0-1.0 X 10^3 Eosinophils # (Auto) 0.0 0.0-0.3 10^3/uL Basophils # (Auto) 0.0 0.0-0.1 10^3/uL Sodium Level 126 L 135-145 MMOL/L Potassium Level 4.5 3.6-5.0 MMOL/L Chloride Level 96 L 98-107 MMOL/L Carbon Dioxide Level 15 L 21-32 MMOL/L Anion Gap 15 H 5-14 MMOL/L Blood Urea Nitrogen 31 H 7-18 MG/DL Creatinine 1.47 H 0.60-1.30 MG/DL Estimat Glomerular Filtration Rate 34 BUN/Creatinine Ratio 21 Glucose Level 115 H 70-105 MG/DL Calcium Level 8.3 L 8.5-10.1 MG/DL Total Bilirubin 2.3 H 0.1-1.0 MG/DL Aspartate Amino Transf (AST/SGOT) 51 H 5-34 U/L Alanine Aminotransferase (ALT/SGPT) 30 0-55 U/L Alkaline Phosphatase 108 40-136 U/L Total Protein 5.8 L 6.4-8.2 GM/DL Albumin 3.0 L 3.2-4.5 GM/DL My Orders Orders - SERVANDO CLARK APRN Cbc With Automated Diff (01/10/18 22:37) Comprehensive Metabolic Panel (01/10/18 22:37) Chest 1 View, Ap/Pa Only (01/10/18 22:37) Iv Heplock-Insert (Order) (01/10/18 22:37) Albuterol/Ipra Inhalation Soln (Duoneb I (01/10/18 22:45) Morphine Injection (Morphine Injection (01/10/18 22:45) Svn Small Volume Nebulizer (01/10/18 22:37) Medications Given in ED Current Medications Medications Dose Ordered Sig/Ravinder Route Start Time Stop Time Status Last Admin Dose Admin Morphine Sulfate 2 mg ONCE ONCE IVP 01/10/18 22:45 01/10/18 22:46 DC 01/10/18 23:00 2 MG Vital Signs/I&O 01/10/18 23:05 Temp 101.3 Pulse 118 Resp 18 B/P (MAP) 78/58 (65) Pulse Ox 95 O2 Delivery Room Air Capillary Refill : Departure Communication (Admissions) I did discuss hospice with the patient and daughter. Both of them agree to go home tonight by ambulance since she is not able to ambulate and she is bedbound. They would like to pursue [facility] hospice.. [facility] will meet with them at 9 AM in the morning. Impression Primary Impression: Pancreatic cancer Additional Impression: General weakness Disposition: 01 HOME, SELF-CARE Condition: Stable Departure-Patient Inst. Decision time for Depature: 23:40 Referrals: DARRELL GONSALEZ DO (PCP/Family) Primary Care Physician Add. Discharge Instructions: 1. Return to ER for any concerns 2. [facility] hospice will meet with you at 9 AM tomorrow morning at her home.All discharge instructions reviewed with patient and/or family. Voiced understanding. SERVANDO CLARK APRN January 10, 2018 22:43
[2018-01-10] MEDS ORDERED: RT-ALBUTEROL/IPRATROPIUM 3 ML (DUONEB) VIAL INH ONE (22:45)
[2018-01-10] MEDS ORDERED: morphine INJ 10 MG/ML 1ML (SYR OR VIAL) IVP ONE (22:45)
[2018-01-10 23:01] LABS: BASOPHILS % (AUTO) 1 % (0-10); EOSINOPHILS % (AUTO) 1 % (0-10); HEMATOCRIT 25 % (35-52); HEMOGLOBIN 8.4 G/DL (11.5-16.0); LYMPHOCYTES # (AUTO) 0.2 X 10^3 (1.0-4.0); LYMPHOCYTES % (AUTO) 14 % (12-44); MEAN CORPUSCULAR HEMOGLOBIN 30 PG (25-34); MEAN CORPUSCULAR HGB CONC 34 G/DL (32-36); MEAN CORPUSCULAR VOLUME 89 FL (80-99); MEAN PLATELET VOLUME 10.9 FL (7.4-10.4); MONOCYTES % (AUTO) 1 % (0-12); NEUTROPHILS # (AUTO) 1.3 X 10^3 (1.8-7.8); NEUTROPHILS % (AUTO) 83 % (42-75); PLATELET COUNT 94 10^3/uL (130-400); RED BLOOD COUNT 2.78 10^6/uL (4.35-5.85); RED CELL DISTRIBUTION WIDTH 14.9 % (10.0-14.5); WHITE BLOOD COUNT 1.6 10^3/uL (4.3-11.0)
[2018-01-10 23:17] LABS: BILIRUBIN,TOTAL 2.3 MG/DL (0.1-1.0); CALCIUM 8.3 MG/DL (8.5-10.1); CREATININE SERUM 1.47 MG/DL (0.60-1.30); POTASSIUM 4.5 MMOL/L (3.6-5.0); TOTAL PROTEIN 5.8 GM/DL (6.4-8.2)
[2018-01-11] VITALS (34 sets, daily range): BP systolic 65–129; BP diastolic 37–96
[2018-01-11] MEDS ORDERED: PIPERACILLIN SODIUM/TAZOBACTAM 4.5 GM in D5W 100 ML IVPB 100 ML IV ONE ×2
[2018-01-11] MEDS: NS IV 1000 ML 1,000 ML IV SCH ×7 (00:12→18:53)
[2018-01-11] MEDS ORDERED: NS W/KCL 20 MEQ/L 1,000 ML IV ONE (01:45)
[2018-01-11 02:00] LABS: CLARITY,URINE SLIGHTLY CLOUDY; COLOR,URINE YELLOW; GLUCOSE, URINE (UA) NEGATIVE (NEGATIVE); KETONES,URINE NEGATIVE (NEGATIVE); LEUKOCYTE ESTERASE ,URINE 1+ (NEGATIVE); NITRITE,URINE NEGATIVE (NEGATIVE); PH,URINE 5 (5-9); PROTEIN,URINE 1+ (NEGATIVE); UROBILINOGEN,URINE 4 MG/DL (NORMAL)
[2018-01-11 02:11] LABS: BACTERIA,URINE FEW /HPF; BILIRUBIN,URINE 1+ (NEGATIVE); RBC,URINE 0-2 /HPF; YEAST,URINE LARGE /HPF
[2018-01-11] MEDS ORDERED: NS IV 1000 ML 1,000 ML ONE (03:00)
[2018-01-11 03:02] LABS: INR 1.4 (0.8-1.4); PROTHROMBIN TIME PATIENT 17.3 SEC (12.2-14.7)
[2018-01-11] MEDS ORDERED: NS IV 1000 ML 1,000 ML IV ONE (03:15)
[2018-01-11] MEDS ORDERED: NOREPINEPHRINE 4 MG/4 ML (LEVOPHED) AMP IV ONE (03:56)
[2018-01-11] MEDS ORDERED: NS (IVPB) 250 ML ONE (03:56)
[2018-01-11] MEDS ORDERED: ACETAMINOPHEN 500 MG TAB (TYLENOL) PO PRN (04:00)
[2018-01-11] MEDS ORDERED: VANCOMYCIN INJECTION 1,000 MG in NS (IVPB) 250 ML IV SCH (04:00)
[2018-01-11] MEDS ORDERED: ONDANSETRON 4 MG/2 ML (SDV) Z0FRAN IV PRN (04:00)
[2018-01-11] MEDS ORDERED: NS IV 1000 ML 2,993.7 ML IV PRN (04:00)
[2018-01-11] MEDS ORDERED: fentaNYL INJECTION 100 MCG/2 ML AMP IV PRN (04:00)
[2018-01-11] MEDS: NOREPINEPHRINE 4 MG in NS (IVPB) 250 ML IV SCH ×4 (04:04→22:58)
[2018-01-11] MEDS ORDERED: NS (IVPB) 100 ML ONE (05:34)
[2018-01-11] MEDS ORDERED: VASOPRESSIN INJECTION 20 UNIT/ML VIAL ONE (05:34)
[2018-01-11] MEDS: VASOPRESSIN INJECTION 20 UNIT in NS (IVPB) 100 ML IV SCH ×3 (05:42→20:53)
[2018-01-11] MEDS: POTASSIUM CL 10MEQ/50ML IVPB 50 ML IV SCH (06:37)
[2018-01-11] MEDS: KCL 20 MEQ TAB (K-DUR) PO SCH (06:37)
[2018-01-11] MEDS: MAGNESIUM 1 GM/100 ML IVPB 100 ML IV SCH (06:37)
[2018-01-11] MEDS: PIPERACILLIN SODIUM/TAZOBACTAM 4.5 GM in NS (IVPB) 100 ML IV SCH ×3 (06:41→21:26)
[2018-01-11] MEDS ORDERED: VANCOMYCIN 500 MG/D5W 100 ML IV NR ×2 (07:01)
--- NOTE | 2018-01-11 07:07 | Diagnostic Imaging Report ---
Clinical indication: Patient with weakness. Exam: Portable chest x-ray upright view. Comparison: Portable chest x-ray upright view dated 12/27/2017. Findings: There is development of mild left lung base atelectasis. There is development of subtle airspace opacity in the left upper lung field which may represent atelectasis versus infiltrate. Otherwise, the remainder of the lungs are stable with chronic lung changes. There is no pleural effusion or pneumothorax. Pulmonary vasculature and cardiac silhouettes within normal limits. There are degenerative spurs involving the thoracic spine. Incompletely imaged sideplate and screws involving the left proximal humerus. Impression: 1: There is development of minimal airspace infiltrate or atelectasis in the left upper lobe region. 2: Interval mild left lung base atelectasis. 3: Stable chronic lung changes. Dictated by: Dictated on workstation # [id number]
[2018-01-11] MEDS: NS W/KCL 20 MEQ/L 1,000 ML IV SCH ×5 (08:19→20:02)
[2018-01-11] MEDS ORDERED: GLYCERIN ADULT SUPPOSITORY PR PRN (09:45)
[2018-01-11] MEDS ORDERED: ANTACID SUSP 30 ML UDC (MYLANTA) PO PRN (09:45)
--- NOTE | 2018-01-11 09:47 | History & Physical-Hospitalist ---
History of Present Illness HPI/Chief Complaint This is a delightful 82-year-old white female who presents to the emergency room with increased weakness and inability to ambulate of new onset. She has a recent diagnosis of pancreatic cancer and has been undergoing chemotherapy for palliative treatment, with the last treatment about a week ago. The increased weakness has been since she had the chemotherapy about a week ago and it is become so severe that she is almost unable to ambulate without assistance. She has not had increased shortness of breath or any accompanying symptoms Even with a decreased dose she has become very weak and has decided to not pursue any further chemotherapy; that she is ready to go meet her Lord. She came into the emergency room in septic shock and has been on pressors overnight and already had a dose of his Zosyn and vancomycin. The patient's blood pressure has stabilized on pressors but as soon as they have been held her blood pressure drops back into the systolic of 70s. At the time of my interview this morning the patient complains primarily of GERD. She is awake and alert and a wonderful historian. She notes that she has had trouble with urinary tract infections in the past. She notes that overall she feels fairly comfortable for a woman that is dying Date Seen 01/11/18 Time Seen by Provider: 09:00 Attending Physician Sonja Escalante MD PCP Mel Gonsalez DO Referring Physician Date of Admission January 11, 2018 at 02:09 Home Medications & Allergies Home Medications Reviewed patient Home Medication Reconciliation performed by pharmacy medication reconciliations civil laboratory technician and/or nursing. Patients Allergies have been reviewed. Allergies Allergies Coded Allergies nut - unspecified (Verified Allergy, Severe, HIVES, EDEMA, 03/04/17) Past Vevhrcq-Atxijv-Otvhmx Hx Past Med/Social Hx: Reviewed Nursing Past Med/Soc Hx Patient Social History Marrital Status: Employed/Student: retired (Taught mathematics and physics) Alcohol Use: Denies Use Recreational Drug Use: No Smoking Status: Never a Smoker 2nd Hand Smoke Exposure: No Physical Abuse Screen: No Sexual Abuse: No Recent Foreign Travel: No Contact w/other who traveled: No Recent Hopitalizations: No Recent Infectious Disease Expo: No Immunizations Up To Date Tetanus Booster (TDap): Unknown Pediatric: No Date of Pneumonia Vaccine: Jun 11, 2017 Date of Influenza Vaccine: Jun 11, 2017 Seasonal Allergies Seasonal Allergies: No Past Medical History Surgeries: Section, Eye Surgery, Hysterectomy, Orthopedic Cardiac: Atrial Fibrillation, Heart Murmur, Hypertension Reproductive: No Gastrointestinal: Gastroesophageal Reflux Endocrine: Hypothyroidsim HEENT: Glaucoma Hearing Impairment: Hard of Hearing Cancer: Pancreatic What Type of Treatment Did You: Chemotherapy History of Blood Disorders: No Adverse Reaction to Blood Griffin: No Family History No Pertinent Family Hx, Hypertension Review of Systems Constitutional: weakness EENTM: no symptoms reported Respiratory: no symptoms reported Cardiovascular: no symptoms reported Gastrointestinal: abdominal pain, constipation, heartburn Genitourinary: frequency Musculoskeletal: muscle weakness Skin: no symptoms reported Psychiatric/Neurological: No Symptoms Reported Physical Exam Physical Exam Vital Signs Vital Signs - First Documented 01/10/18 01/11/18 23:05 02:55 Temp 101.3 Pulse 118 Resp 18 B/P (MAP) 78/58 (65) Pulse Ox 95 O2 Delivery Room Air O2 Flow Rate 2.00 Capillary Refill : Less Than 3 Seconds General Appearance: No Apparent Distress, Chronically ill Eyes: Bilateral Eye Normal Inspection HEENT: Pale Conjunctivae (L), Other (Dentures) Neck: Non Tender, Supple, Limited Range of Motion Respiratory: Chest Non Tender, Normal Breath Sounds, No Accessory Muscle Use, No Respiratory Distress, Crackles (Scattered) Cardiovascular: Regular Rate, Rhythm, Systolic Murmur, Other (Decreased peripheral pulses) Gastrointestinal: Abnormal Bowel Sounds, Distended, Tenderness Rectal: Deferred Back: Normal Inspection Extremity: Pedal Edema, Slow Capillary Refill Neurologic/Psychiatric: Alert, Oriented x3, No Motor/Sensory Deficits, Normal Mood/Affect Skin: Pallor Lymphatic: No Adenopathy Results Results/Procedures Labs Laboratory Tests 01/10/18 22:40 Patient resulted labs reviewed. Imaging: Reviewed Imaging Report Assessment/Plan Admission Diagnosis Septic shock-with multi-organ failure, elevated lactic acid, most likely secondary to UTI Cancer of the pancreas-planning to stop chemotherapy requests a DO NOT RESUSCITATE Metabolic acidosis secondary to number 1 Acute renal failure secondary to number 1 Pancytopenia secondary to sepsis and chemotherapy Hyponatremia Hepatic dysfunction secondary to number 1 and number 2 History of congestive heart failure secondary to diastolic dysfunction with normal LV function currently compensated Plan at this juncture is to continue aggressive supportive care waiting for her son to arrive for closure and then hospice care per patient request Admission Status: Inpatient Order (span 2 midnights) Reason for Inpatient Admission: Critically ill with multiorgan failure Critical Care Critically Ill Patient Critical Care Start Date: January 11, 2018 Critical Care Start Time: 09:15 Stop date: January 11, 2018 Stop Time: 10:00 Clinical Quality Measures End of Life/Advance Care Plan: Advance Care discuss with: patient End of Life Care: Hospice (Hospital) Plan: identified end-of-life goals, developed treatment plan Admission Status Admission Status: Inpatient Order (span 2 midnights) Reason for Inpatient Admission: Patient is critically ill with multiorgan failure AMI/AHF: Ejection Fraction: Normal LVSF DVT/VTE Risk/Contraindication: VTE Addressed: Yes Risk Factor Score Per Nursin RFS Level Per Nursing on Admit: 4+=Very High DVT/VTE Prophylaxis Comfirm.Dx Pharmacological not ordered: Cancer-Active Urinary Catheter-Non SCIP Pts: Reason for Catheter Continuanc: Immobility Copy Copies To 1: MEL GONSALEZ KATHLEEN M MD January 11, 2018 09:47
[2018-01-11] MEDS: LEVOTHYROXINE 100 MCG (LEVOTHROID) TAB PO SCH (10:00)
[2018-01-11] MEDS: oxyCODONE/APAP 5/325MG (PERCOCET 5) TABLET PO PRN ×3 (10:54→21:02)
[2018-01-11] MEDS: SUCRALFATE 1 GM (CARAFATE) TAB PO SCH ×3 (10:54→20:53)
[2018-01-11] MEDS: fentaNYL INJECTION 100 MCG/2 ML AMP IV PRN (14:32)
[2018-01-11] MEDS: D5W IV SCH ×2 (16:47)
[2018-01-11] MEDS: VANCOMYCIN IV SCH ×2 (16:47)
[2018-01-11] MEDS: FAMOTIDINE 20 MG (PEPCID) TABLET PO SCH (20:53)
[2018-01-11] MEDS: POLYETHYLENE GLYCOL 17 GM (MIRALAX) PACK PO SCH (20:53)
[2018-01-11] MEDS: LATANOPROST 0.005% (XALATAN) OPHTH SOLN 2.5 ML OU SCH (20:53)
[2018-01-12] VITALS (30 sets, daily range): BP systolic 88–132; BP diastolic 35–87
[2018-01-12] MEDS: NS W/KCL 20 MEQ/L 1,000 ML IV SCH ×4 (00:10→12:20)
[2018-01-12] MEDS: NS IV 1000 ML 1,000 ML IV SCH ×2 (01:45→08:22)
[2018-01-12] MEDS: D5W IV SCH ×2 (04:01)
[2018-01-12] MEDS: VANCOMYCIN IV SCH ×2 (04:01)
[2018-01-12 04:16] LABS: BASOPHILS % (AUTO) 1 % (0-10); EOSINOPHILS % (AUTO) 1 % (0-10); HEMATOCRIT 22 % (35-52); HEMOGLOBIN 7.5 G/DL (11.5-16.0); LYMPHOCYTES # (AUTO) 0.3 X 10^3 (1.0-4.0); LYMPHOCYTES % (AUTO) 18 % (12-44); MEAN CORPUSCULAR HEMOGLOBIN 30 PG (25-34); MEAN CORPUSCULAR HGB CONC 34 G/DL (32-36); MEAN CORPUSCULAR VOLUME 90 FL (80-99); MEAN PLATELET VOLUME 10.7 FL (7.4-10.4); MONOCYTES % (AUTO) 1 % (0-12); NEUTROPHILS # (AUTO) 1.5 X 10^3 (1.8-7.8); NEUTROPHILS % (AUTO) 81 % (42-75); PLATELET COUNT 58 10^3/uL (130-400); RED BLOOD COUNT 2.48 10^6/uL (4.35-5.85); RED CELL DISTRIBUTION WIDTH 15.1 % (10.0-14.5); WHITE BLOOD COUNT 1.8 10^3/uL (4.3-11.0)
[2018-01-12 04:36] LABS: BUN/CREATININE RATIO 26; CALCIUM 7.4 MG/DL (8.5-10.1); CARBON DIOXIDE 13 MMOL/L (21-32); CHLORIDE 105 MMOL/L (98-107); CREATININE SERUM 0.89 MG/DL (0.60-1.30); GFR ESTIMATED > 60; GLUCOSE 146 MG/DL (70-105); MAGNESIUM 1.7 MG/DL (1.8-2.4); PHOSPHORUS 3.3 MG/DL (2.3-4.7); POTASSIUM 4.5 MMOL/L (3.6-5.0); SODIUM 129 MMOL/L (135-145)
[2018-01-12] MEDS: SUCRALFATE 1 GM (CARAFATE) TAB PO SCH ×4 (06:10→21:54)
[2018-01-12] MEDS: PIPERACILLIN SODIUM/TAZOBACTAM 4.5 GM in NS (IVPB) 100 ML IV SCH ×3 (06:10→22:49)
[2018-01-12] MEDS: POTASSIUM CL 10MEQ/50ML IVPB 50 ML IV SCH (06:11)
[2018-01-12] MEDS: KCL 20 MEQ TAB (K-DUR) PO SCH (06:11)
[2018-01-12] MEDS: MAGNESIUM 1 GM/100 ML IVPB 100 ML IV SCH ×3 (06:11→07:17)
[2018-01-12] MEDS: oxyCODONE/APAP 5/325MG (PERCOCET 5) TABLET PO PRN ×3 (06:17→17:53)
[2018-01-12] MEDS: VASOPRESSIN INJECTION 20 UNIT in NS (IVPB) 100 ML IV SCH ×3 (06:20→22:48)
[2018-01-12] MEDS: NOREPINEPHRINE 4 MG in NS (IVPB) 250 ML IV SCH ×3 (08:19→23:19)
[2018-01-12] MEDS: LEVOTHYROXINE 100 MCG (LEVOTHROID) TAB PO SCH (08:22)
--- NOTE | 2018-01-12 09:46 | Progress Note-Hospitalist ---
Subjective HPI/CC On Admission Date Seen by Provider: January 12, 2018 Time Seen by Provider: 09:15 This is a delightful 82-year-old white female who presents to the emergency room with increased weakness and inability to ambulate of new onset. She has a recent diagnosis of pancreatic cancer and has been undergoing chemotherapy for palliative treatment, with the last treatment about a week ago. The increased weakness has been since she had the chemotherapy about a week ago and it is become so severe that she is almost unable to ambulate without assistance. She has not had increased shortness of breath or any accompanying symptoms Even with a decreased dose she has become very weak and has decided to not pursue any further chemotherapy; that she is ready to go meet her Lord. She came into the emergency room in septic shock and has been on pressors overnight and already had a dose of his Zosyn and vancomycin. The patient's blood pressure has stabilized on pressors but as soon as they have been held her blood pressure drops back into the systolic of 70s. At the time of my interview this morning the patient complains primarily of GERD. She is awake and alert and a wonderful historian. She notes that she has had trouble with urinary tract infections in the past. She notes that overall she feels fairly comfortable for a woman that is dying Subjective/Events-last exam Patient denies having increased pain or problems. She did have a large bowel movement and that has helped her nausea. Her son arrives today and they have expectations of resolving legal matters and the next day or so. Her daughter is in attendance. All questions are answered Review of Systems Gastrointestinal: Abdominal Pain Neurological: Weakness Focused Exam Lactate Level 01/10/18 23:45: Lactic Acid Level 2.67*H 01/11/18 02:43: Lactic Acid Level 2.00 Objective Exam Vital Signs Vital Signs Date Time Temp Pulse Resp B/P (MAP) Pulse Ox O2 Delivery O2 Flow Rate FiO2 01/12/18 08:45 56 16 112/40 (64) 100 High Flow N/C 4.00 01/12/18 08:12 97.8 Capillary Refill : Less Than 3 Seconds General Appearance: Chronically ill HEENT: Other (Dentures upper and lower) Neck: Normal Inspection, Non Tender Respiratory: Lungs Clear, Normal Breath Sounds, No Accessory Muscle Use, No Respiratory Distress Cardiovascular: Regular Rate, Rhythm, No Gallop, Systolic Murmur Gastrointestinal: Normal Bowel Sounds, Soft, Tenderness (Midepigastric) Rectal: Deferred Back: Normal Inspection, No CVA Tenderness, No Vertebral Tenderness Extremity: Pedal Edema, Slow Capillary Refill Neurologic/Psychiatric: Alert, Oriented x3, No Motor/Sensory Deficits, Normal Mood/Affect Skin: Pallor Lymphatic: No Adenopathy Results/Procedures Lab Laboratory Tests 01/12/18 04:10 Patient resulted labs reviewed. Imaging: Reviewed Imaging Report Assessment/Plan Assessment and Plan Assess & Plan/Chief Complaint Septic shock-with multi-organ failure, elevated lactic acid-improving, most likely secondary to UTI-patient is still dependent on pressor support for adequate MAP Cancer of the pancreas-planning to stop chemotherapy requests a DO NOT RESUSCITATE Metabolic acidosis secondary to number 1 Acute renal failure secondary to number 1-improving Pancytopenia secondary to sepsis and chemotherapy-worsening Hyponatremia-improving Hepatic dysfunction secondary to number 1 and number 2 History of congestive heart failure secondary to diastolic dysfunction with normal LV function currently compensated-we'll decrease IV fluids to TKO as patient is becoming edematous Plan at this juncture is to continue aggressive supportive care waiting for her son to arrive for closure and then hospice care per patient request Admission Status: Inpatient Order (span 2 midnights) Reason for Inpatient Admission: Critically ill with multiorgan failure Critical Care Critical Care: Critically Ill Patient Critical Care Start Date: January 12, 2018 Critical Care Start Time: 09:00 Stop date: January 12, 2018 Stop Time: 10:00 Clinical Quality Measures DVT/VTE Risk/Contraindication: VTE Addressed: Yes Risk Factor Score Per Nursin RFS Level Per Nursing on Admit: 4+=Very High DVT/VTE Prophylaxis Comfirm.Dx Pharmacological not ordered: Cancer-Active Urinary Catheter-Non SCIP Pts: Reason for Catheter Continuanc: Immobility LESLEY COLLINS MD January 12, 2018 09:46
--- NOTE | 2018-01-12 11:22 | Diagnostic Imaging Report ---
Clinical indication: Patient with dyspnea. Exam: Portable chest x-ray upright view. Comparison: Chest x-ray dated 01/10/2018. Findings: Mild cardiomegaly is seen. There is interval slight progression of pulmonary vascular congestion. There is increased patchy consolidation in the left lung base. There is slight increased patchy airspace opacities in both lungs. There is no pleural effusion or pneumothorax. The remainder of this exam shows no significant interval change compared to the prior study of comparison. Impression: 1: There is cardiomegaly with progression of pulmonary vascular congestion concerning for congestive heart failure. 2: There is interval increased mild patchy airspace opacities which may represent atelectasis, but superimposed infiltrates can't be completely excluded. Dictated by: Dictated on workstation # [id number]
[2018-01-12] MEDS ORDERED: TROUGH ORDER-PHARMACY XX NR (15:00)
[2018-01-12] MEDS: VANCOMYCIN 750 MG/NS 250 ML IVPB IV SCH ×2 (17:41)
[2018-01-12] MEDS ORDERED: FUROSEMIDE 40 MG/4 ML INJ (LASIX) IVP ONE (18:00)
[2018-01-12] MEDS: LATANOPROST 0.005% (XALATAN) OPHTH SOLN 2.5 ML OU SCH (21:02)
[2018-01-12] MEDS: FAMOTIDINE 20 MG (PEPCID) TABLET PO SCH (21:54)
[2018-01-12] MEDS: POLYETHYLENE GLYCOL 17 GM (MIRALAX) PACK PO SCH (21:54)
[2018-01-13] VITALS (15 sets, daily range): BP systolic 95–138; BP diastolic 39–78
[2018-01-13 04:20] LABS: BASOPHILS % (AUTO) 0 % (0-10); EOSINOPHILS % (AUTO) 1 % (0-10); HEMATOCRIT 23 % (35-52); HEMOGLOBIN 7.6 G/DL (11.5-16.0); LYMPHOCYTES # (AUTO) 0.5 X 10^3 (1.0-4.0); LYMPHOCYTES % (AUTO) 35 % (12-44); MEAN CORPUSCULAR HEMOGLOBIN 30 PG (25-34); MEAN CORPUSCULAR HGB CONC 33 G/DL (32-36); MEAN CORPUSCULAR VOLUME 89 FL (80-99); MEAN PLATELET VOLUME 10.9 FL (7.4-10.4); MONOCYTES # (AUTO) 0.1 X 10^3 (0.0-1.0); MONOCYTES % (AUTO) 4 % (0-12); NEUTROPHILS # (AUTO) 0.8 X 10^3 (1.8-7.8); NEUTROPHILS % (AUTO) 61 % (42-75); RED BLOOD COUNT 2.55 10^6/uL (4.35-5.85)
[2018-01-13 04:32] LABS: PLATELET COUNT 32 10^3/uL (130-400); WHITE BLOOD COUNT 1.4 10^3/uL (4.3-11.0)
[2018-01-13 04:37] LABS: BUN/CREATININE RATIO 24; CALCIUM 7.8 MG/DL (8.5-10.1); CARBON DIOXIDE 16 MMOL/L (21-32); CHLORIDE 104 MMOL/L (98-107); CREATININE SERUM 0.76 MG/DL (0.60-1.30); GFR ESTIMATED > 60; GLUCOSE 123 MG/DL (70-105); MAGNESIUM 1.7 MG/DL (1.8-2.4); PHOSPHORUS 2.4 MG/DL (2.3-4.7); POTASSIUM 3.8 MMOL/L (3.6-5.0); SODIUM 130 MMOL/L (135-145)
[2018-01-13] MEDS: MAGNESIUM 1 GM/100 ML IVPB 100 ML IV SCH ×3 (05:20→06:18)
[2018-01-13] MEDS: KCL 20 MEQ TAB (K-DUR) PO SCH (05:20)
[2018-01-13] MEDS: POTASSIUM CL 10MEQ/50ML IVPB 50 ML IV SCH (05:20)
[2018-01-13] MEDS: NS IV 1000 ML 1,000 ML IV SCH (05:37)
[2018-01-13] MEDS: VANCOMYCIN 750 MG/NS 250 ML IVPB IV SCH ×2 (06:01)
[2018-01-13] MEDS: PIPERACILLIN SODIUM/TAZOBACTAM 4.5 GM in NS (IVPB) 100 ML IV SCH (06:01)
[2018-01-13] MEDS: SUCRALFATE 1 GM (CARAFATE) TAB PO SCH ×4 (06:18→21:27)
[2018-01-13] MEDS: LEVOTHYROXINE 100 MCG (LEVOTHROID) TAB PO SCH (06:18)
[2018-01-13] MEDS: NOREPINEPHRINE 4 MG in NS (IVPB) 250 ML IV SCH (07:27)
[2018-01-13] MEDS: VASOPRESSIN INJECTION 20 UNIT in NS (IVPB) 100 ML IV SCH (07:28)
[2018-01-13] MEDS ORDERED: GLYCOPYRROLATE 0.2 MG/ML (ROBINUL) 2 ML VIAL IV PRN (13:00)
[2018-01-13] MEDS ORDERED: SALIVA STIMULANT MOUTH SPRAY (BIOTENE) 1.5 OZ MM PRN (13:00)
[2018-01-13] MEDS ORDERED: ARTIFICIAL TEARS OINT (LACRI-LUBE) 3.5 GM TUBE OU PRN (13:00)
[2018-01-13] MEDS ORDERED: BISACODYL 10 MG SUPP (DULCOLAX) PR PRN (13:00)
[2018-01-13] MEDS ORDERED: RT-ALBUTEROL/IPRATROPIUM 3 ML (DUONEB) VIAL INH PRN (13:00)
[2018-01-13] MEDS ORDERED: ACETAMINOPHEN 650 MG SUPP (TYLENOL) PR PRN (13:00)
[2018-01-13] MEDS ORDERED: PROMETHAZINE INJ 25 MG/ML (PHENERGAN) AMP IVP PRN (13:00)
[2018-01-13] MEDS ORDERED: LORazepam INJ 2 MG/ML (ATIVAN) VIAL IVP PRN (13:00)
[2018-01-13] MEDS: fentaNYL INJECTION 100 MCG/2 ML AMP IV PRN ×4 (15:05→22:43)
[2018-01-13] MEDS: oxyCODONE/APAP 5/325MG (PERCOCET 5) TABLET PO PRN (16:32)
--- NOTE | 2018-01-13 18:17 | Progress Note (SOAP) ---
Subjective Date Seen by Provider: January 13, 2018 Time Seen by Provider: 12:45 Subjective/Events-last exam Fwup sepsis, septic shock, pancreatic cancer. Patient is ready to go on comfort care. Pain is well controlled. Focused Exam Lactate Level 01/10/18 23:45: Lactic Acid Level 2.67*H 01/11/18 02:43: Lactic Acid Level 2.00 Objective Exam Vital Signs Date Time Temp Pulse Resp B/P (MAP) Pulse Ox O2 Delivery O2 Flow Rate FiO2 01/13/18 15:21 OxyMask 4.00 01/13/18 14:20 Nasal Cannula 3.00 01/13/18 14:00 100 18 102/61 (75) 99 High Flow N/C 5.00 01/13/18 13:00 107 13 95/53 (67) 97 High Flow N/C 5.00 01/13/18 12:07 High Flow N/C 4.00 01/13/18 12:00 91 13 107/45 (65) 99 High Flow N/C 5.00 01/13/18 11:00 76 17 116/70 (85) 92 High Flow N/C 5.00 01/13/18 10:00 80 14 110/61 (77) 100 High Flow N/C 5.00 01/13/18 09:00 76 10 123/56 (78) 100 High Flow N/C 5.00 01/13/18 08:59 High Flow N/C 4.00 01/13/18 08:00 78 18 133/63 (86) 90 High Flow N/C 5.00 01/13/18 07:03 86 01/13/18 07:00 86 18 109/39 (62) 96 High Flow N/C 5.00 01/13/18 06:00 94 19 126/59 (81) 93 High Flow N/C 5.00 01/13/18 05:00 70 8 120/64 (82) 96 High Flow N/C 5.00 01/13/18 04:08 OxyMask 4.00 01/13/18 04:00 62 7 130/49 (76) 98 High Flow N/C 5.00 01/13/18 04:00 OxyMask 4.00 01/13/18 03:00 77 7 119/72 (88) 100 High Flow N/C 5.00 01/13/18 02:00 80 6 110/72 (85) 91 High Flow N/C 5.00 01/13/18 01:00 66 01/13/18 01:00 69 7 126/54 (78) 97 High Flow N/C 5.00 01/13/18 00:00 OxyMask 4.00 01/13/18 00:00 74 7 138/78 (98) 96 High Flow N/C 4.00 01/12/18 23:00 83 6 132/69 (90) 96 High Flow N/C 4.00 01/12/18 22:00 81 8 122/59 (80) 96 High Flow N/C 4.00 01/12/18 21:00 84 18 102/62 (75) 90 High Flow N/C 4.00 01/12/18 20:00 94 8 123/54 (77) 97 High Flow N/C 4.00 01/12/18 20:00 High Flow N/C 4.00 01/12/18 19:00 60 01/12/18 19:00 62 12 126/64 (84) 97 High Flow N/C 4.00 I & O 01/13/18 07:00 Intake Total 3544 ml Output Total 1525 ml Balance 2019 ml Capillary Refill : Greater Than 3 SecondsLess Than 3 Seconds General Appearance: No Apparent Distress Respiratory: Lungs Clear Cardiovascular: Regular Rate, Rhythm Extremity: Pedal Edema Neurologic/Psychiatric: Alert Results Lab Laboratory Tests 01/13/18 04:10: White Blood Count 1.4*L, Red Blood Count 2.55L, Hemoglobin 7.6L, Hematocrit 23L , Mean Corpuscular Volume 89, Mean Corpuscular Hemoglobin 30, Mean Corpuscular Hemoglobin Concent 33, Red Cell Distribution Width 15.0H, Platelet Count 32*L, Mean Platelet Volume 10.9H, Neutrophils (%) (Auto) 61, Lymphocytes (%) (Auto) 35 , Monocytes (%) (Auto) 4, Eosinophils (%) (Auto) 1, Basophils (%) (Auto) 0, Neutrophils # (Auto) 0.8L, Lymphocytes # (Auto) 0.5L, Monocytes # (Auto) 0.1, Eosinophils # (Auto) 0.0, Basophils # (Auto) 0.0, Sodium Level 130L, Potassium Level 3.8, Chloride Level 104, Carbon Dioxide Level 16L, Anion Gap 10, Blood Urea Nitrogen 18, Creatinine 0.76, Estimat Glomerular Filtration Rate > 60, BUN/ Creatinine Ratio 24, Glucose Level 123H, Calcium Level 7.8L, Phosphorus Level 2.4, Magnesium Level 1.7L Microbiology 01/10/18 Blood Culture - Preliminary, Resulted No growth 01/11/18 Urine Culture - Final, Complete Yeast species Assessment/Plan Assessment/Plan Assess & Plan/Chief Complaint 1. Sepsis/Septic Shock--patient wants to stop pressors/abx and go on comfort care 2. Pancreatic Cancer--patient ready to go on comfort care Clinical Quality Measures DVT/VTE Risk/Contraindication: VTE Addressed: Yes Risk Factor Score Per Nursin RFS Level Per Nursing on Admit: 4+=Very High DVT/VTE Prophylaxis Comfirm.Dx Pharmacological not ordered: Cancer-Active Urinary Catheter-Non SCIP Pts: Reason for Catheter Continuanc: Immobility DARRELL GONSALEZ DO January 13, 2018 6:17 pm
[2018-01-13] MEDS: POLYETHYLENE GLYCOL 17 GM (MIRALAX) PACK PO SCH (21:26)
[2018-01-13] MEDS: FAMOTIDINE 20 MG (PEPCID) TABLET PO SCH (21:27)
[2018-01-13] MEDS: LATANOPROST 0.005% (XALATAN) OPHTH SOLN 2.5 ML OU SCH (21:27)
[2018-01-14] MEDS: fentaNYL INJECTION 100 MCG/2 ML AMP IV PRN (02:18)
[2018-01-14] MEDS: morphine INJ 4 MG/ML 1 ML (VIAL/SYRINGE) IVP PRN ×2 (05:31→16:10)
[2018-01-14] MEDS: SUCRALFATE 1 GM (CARAFATE) TAB PO SCH ×4 (07:39→21:43)
[2018-01-14] MEDS: LEVOTHYROXINE 100 MCG (LEVOTHROID) TAB PO SCH (09:05)
--- NOTE | 2018-01-14 18:11 | Progress Note (SOAP) ---
Subjective Date Seen by Provider: January 14, 2018 Time Seen by Provider: 12:45 Subjective/Events-last exam Fwup sepsis, septic shock, pancreatic cancer. Pain well controlled. Air hunger through the night. Resting comfortably. Objective Exam Vital Signs Date Time Temp Pulse Resp B/P (MAP) Pulse Ox O2 Delivery O2 Flow Rate FiO2 01/14/18 16:03 98 OxyMask 4.00 01/14/18 09:00 OxyMask 3.00 01/13/18 20:34 Nasal Cannula 3.00 I & O 01/14/18 07:00 Intake Total 300 ml Output Total 1400 ml Balance -1100 ml Capillary Refill : Greater Than 3 SecondsLess Than 3 Seconds General Appearance: No Apparent Distress Neck: Supple Respiratory: Lungs Clear Cardiovascular: Regular Rate, Rhythm Gastrointestinal: non tender, soft Neurologic/Psychiatric: Alert Results Lab Microbiology 01/10/18 Blood Culture - Preliminary, Resulted No growth 01/11/18 Urine Culture - Final, Complete Yeast species Assessment/Plan Assessment/Plan Assess & Plan/Chief Complaint 1. Sepsis/Septic Shock--comfort care, may need NH or home with hospice pending how rapidly declines 2. Pancreatic Cancer--comfort care Clinical Quality Measures DVT/VTE Risk/Contraindication: VTE Addressed: Yes Risk Factor Score Per Nursin RFS Level Per Nursing on Admit: 4+=Very High DVT/VTE Prophylaxis Comfirm.Dx Pharmacological not ordered: Cancer-Active Urinary Catheter-Non SCIP Pts: Reason for Catheter Continuanc: Immobility DARRELL GONSALEZ DO January 14, 2018 6:11 pm
[2018-01-14] MEDS: LATANOPROST 0.005% (XALATAN) OPHTH SOLN 2.5 ML OU SCH (21:43)
[2018-01-14] MEDS: FAMOTIDINE 20 MG (PEPCID) TABLET PO SCH (21:44)
[2018-01-14] MEDS: POLYETHYLENE GLYCOL 17 GM (MIRALAX) PACK PO SCH (21:44)
[2018-01-15] MEDS: SUCRALFATE 1 GM (CARAFATE) TAB PO SCH ×4 (06:03→21:04)
[2018-01-15] MEDS: fentaNYL INJECTION 100 MCG/2 ML AMP IV PRN ×4 (06:03→21:01)
[2018-01-15] MEDS: LEVOTHYROXINE 100 MCG (LEVOTHROID) TAB PO SCH (07:14)
[2018-01-15] MEDS: oxyCODONE/APAP 5/325MG (PERCOCET 5) TABLET PO PRN ×2 (07:14→11:43)
[2018-01-15] MEDS: morphine INJ 4 MG/ML 1 ML (VIAL/SYRINGE) IVP PRN (11:11)
[2018-01-15] MEDS: ONDANSETRON 4 MG/2 ML (SDV) Z0FRAN IVP PRN (11:19)
[2018-01-15] MEDS ORDERED: morphine INJ 4 MG/ML 1 ML (VIAL/SYRINGE) IVP PRN (13:15)
--- NOTE | 2018-01-15 17:40 | Progress Note (SOAP) ---
Subjective Date Seen by Provider: January 15, 2018 Time Seen by Provider: 12:45 Subjective/Events-last exam Fwup sepsis, septic shock, pancreatic cancer. Pain was not controlled but given ativan and now resting comfortably. Objective Exam Vital Signs Date Time Temp Pulse Resp B/P (MAP) Pulse Ox O2 Delivery O2 Flow Rate FiO2 01/15/18 09:17 Nasal Cannula 2.00 01/15/18 09:00 OxyMask 3.00 01/14/18 21:38 Nasal Cannula 2.00 01/14/18 21:00 OxyMask 3.00 I & O 01/15/18 07:00 Intake Total 150 ml Output Total 1450 ml Balance -1300 ml Capillary Refill : Greater Than 3 SecondsLess Than 3 Seconds General Appearance: No Apparent Distress Respiratory: Lungs Clear Cardiovascular: Irregularly Irregular, Tachycardia Extremity: Pedal Edema Neurologic/Psychiatric: Other (sleepin) Skin: Pallor Results Lab Microbiology 01/10/18 Blood Culture - Preliminary, Resulted No growth 01/11/18 Urine Culture - Final, Complete Yeast species Assessment/Plan Assessment/Plan Assess & Plan/Chief Complaint 1. Sepsis/Septic Shock--comfort care, may need NH or home with hospice pending how rapidly declines, increase both morphine and fentanyl doses for pain control 2. Pancreatic Cancer--comfort care Clinical Quality Measures DVT/VTE Risk/Contraindication: VTE Addressed: Yes Risk Factor Score Per Nursin RFS Level Per Nursing on Admit: 4+=Very High DVT/VTE Prophylaxis Comfirm.Dx Pharmacological not ordered: Cancer-Active Urinary Catheter-Non SCIP Pts: Reason for Catheter Continuanc: Immobility DARRELL GONSALEZ DO January 15, 2018 5:40 pm
[2018-01-15] MEDS: POLYETHYLENE GLYCOL 17 GM (MIRALAX) PACK PO SCH (21:03)
[2018-01-15] MEDS: LATANOPROST 0.005% (XALATAN) OPHTH SOLN 2.5 ML OU SCH (21:04)
[2018-01-15] MEDS: FAMOTIDINE 20 MG (PEPCID) TABLET PO SCH (21:04)
[2018-01-16] MEDS: ARTIFICAL TEARS 0.4 ML UNIT DOSE (REFRESH PLUS) OU PRN (02:01)
[2018-01-16] MEDS: morphine INJ 10 MG/ML 1ML (SYR OR VIAL) IV PRN ×2 (02:01→09:07)
[2018-01-16] MEDS: FAMOTIDINE 20 MG (PEPCID) TABLET PO SCH (02:01)
[2018-01-16] MEDS: ONDANSETRON 4 MG/2 ML (SDV) Z0FRAN IVP PRN (02:08)
[2018-01-16] MEDS: fentaNYL INJECTION 100 MCG/2 ML AMP IV PRN ×9 (04:01→21:52)
[2018-01-16] MEDS: SUCRALFATE 1 GM (CARAFATE) TAB PO SCH ×4 (06:18→20:20)
--- NOTE | 2018-01-16 08:16 | Progress Note (SOAP) ---
Subjective Date Seen by Provider: January 16, 2018 Time Seen by Provider: 08:14 Subjective/Events-last exam PT REPORTS THAT SHE IS READY TO PASS OVER. SHE REPORTS THAT SHE IS FEELING PAIN FROM HER HEAD TO HER TOES. Review of Systems General: Fatigue, Malaise Pulmonary: Dyspnea; No Cough Cardiovascular: No: Chest Pain Musculoskeletal: back pain, leg pain Neurological: Weakness Objective Exam Vital Signs Date Time Temp Pulse Resp B/P (MAP) Pulse Ox O2 Delivery O2 Flow Rate FiO2 01/15/18 21:00 OxyMask 3.00 01/15/18 09:17 Nasal Cannula 2.00 01/15/18 09:00 OxyMask 3.00 I & O 01/16/18 07:00 Intake Total 150 ml Output Total 550 ml Balance -400 ml Capillary Refill : Greater Than 3 SecondsLess Than 3 Seconds General Appearance: Thin, Other (ILL APPEARING FEMALE) HEENT: PERRL/EOMI Neck: Supple Respiratory: Chest Non Tender, Decreased Breath Sounds Cardiovascular: Irregularly Irregular Gastrointestinal: normal bowel sounds, soft Neurologic/Psychiatric: Alert Skin: Warm/Dry Results Lab Microbiology 01/10/18 Blood Culture - Preliminary, Resulted No growth 01/11/18 Urine Culture - Final, Complete Yeast species Assessment/Plan Assessment/Plan Assess & Plan/Chief Complaint SEPSIS SEPTIC SHOCK PANCREATIC CANCER COMFORT CARE SEPSIS AND SEPTIC SHOCK - PT ON COMFORT CARE AT THIS TIME - PER DR. GONSALEZ'S NOTE - THEY ARE CONSIDERING LONG-TERM WITH HOSPICE IF PT DOES NOT DECLINE RAPIDLY. PANCREATIC CANCER - SUPPORTIVE CARE WITH COMFORT CARE AT THIS TIME. Clinical Quality Measures DVT/VTE Risk/Contraindication: VTE Addressed: Yes Risk Factor Score Per Nursin RFS Level Per Nursing on Admit: 4+=Very High DVT/VTE Prophylaxis Comfirm.Dx Pharmacological not ordered: Cancer-Active Urinary Catheter-Non SCIP Pts: Reason for Catheter Continuanc: Immobility BRITNI BOJORQUEZ MD January 16, 2018 08:15
[2018-01-16] MEDS: LEVOTHYROXINE 100 MCG (LEVOTHROID) TAB PO SCH (13:13)
[2018-01-16] MEDS: LORazepam INJ 2 MG/ML (ATIVAN) VIAL IVP PRN (13:37)
[2018-01-16] MEDS: POLYETHYLENE GLYCOL 17 GM (MIRALAX) PACK PO SCH (20:20)
[2018-01-16] MEDS: LATANOPROST 0.005% (XALATAN) OPHTH SOLN 2.5 ML OU SCH (20:21)
[2018-01-17] MEDS: fentaNYL INJECTION 100 MCG/2 ML AMP IV PRN ×3 (00:44→06:06)
[2018-01-17] MEDS: SUCRALFATE 1 GM (CARAFATE) TAB PO SCH ×4 (05:39→19:27)
--- NOTE | 2018-01-17 07:10 | Progress Note ---
Subjective Date Seen by Provider: January 17, 2018 Time Seen by Provider: 06:40 Subjective/Events-last exam PT REPORTS THAT SHE IS FEELING MORE FATIGUED, HER SHORTNESS OF BREATH IS WORSE, HER DAUGHTER REPORTS THAT HER MOM HAS NEEDED PAIN MEDICATION EVERY HOUR TO CONTROL HER SYMPTOMS. Review of Systems General: Fatigue HEENT: No Head Aches Pulmonary: Dyspnea, Cough Cardiovascular: No: Chest Pain Gastrointestinal: No: Nausea Neurological: Weakness; No: Confusion Objective Exam Last Set of Vital Signs Vital Signs Date Time Temp Pulse Resp B/P (MAP) Pulse Ox O2 Delivery O2 Flow Rate FiO2 01/16/18 21:00 Room Air 01/15/18 21:00 3.00 01/14/18 16:03 98 01/13/18 14:00 100 18 102/61 (75) 01/12/18 12:19 98.3 Capillary Refill : Greater Than 3 SecondsLess Than 3 Seconds I&O Intake and Output 01/17/18 00:00 Intake Total 80 ml Output Total 600 ml Balance -520 ml Intake Oral 80 ml Output Urine Total 600 ml General: Other (FATIGUED, GROGGY.) HEENT: Atraumatic Lungs: Other (DECREASED AIR SOUNDS THROUGHT) Psych/Mental Status: Other (GROGGY - BUT AROUSES TO VOICE AND IS INTACT TO ANSWER QUESTIONS) Results Lab Microbiology 01/10/18 Blood Culture - Final, Complete No growth 01/11/18 Urine Culture - Final, Complete Yeast species Assessment/Plan Assessment/Plan Assess & Plan/Chief Complaint SEPSIS SEPTIC SHOCK PANCREATIC CANCER COMFORT CARE SEPSIS AND SEPTIC SHOCK - PT ON COMFORT CARE AT THIS TIME - PER DR. GONSALEZ'S NOTE -PT HAS DECLINED PHYSICALLY - SHE WILL BE STARTED ON FENT[facility] SCHEDULED - AFTER TALKING TO NURSING STAFF, PT WAS CHANGED TO FENT[facility] [employer] LINE BACK FEEDER AROUND NOON TODAY. PANCREATIC CANCER - SUPPORTIVE CARE WITH COMFORT CARE AT THIS TIME. Clinical Quality Measures DVT/VTE Risk/Contraindication: VTE Addressed: Yes Risk Factor Score Per Nursin RFS Level Per Nursing on Admit: 4+=Very High DVT/VTE Prophylaxis Comfirm.Dx Pharmacological not ordered: Cancer-Active Urinary Catheter-Non SCIP Pts: Reason for Catheter Continuanc: Immobility BRITNI BOJORQUEZ MD January 17, 2018 07:10
[2018-01-17] MEDS: ONDANSETRON 4 MG/2 ML (SDV) Z0FRAN IVP PRN (08:53)
[2018-01-17] MEDS: fentaNYL INJECTION 100 MCG/2 ML AMP IV SCH ×5 (08:53→13:03)
[2018-01-17] MEDS: LEVOTHYROXINE 100 MCG (LEVOTHROID) TAB PO SCH (10:28)
[2018-01-17] MEDS ORDERED: fentaNYL INJECTION 5,000 MCG in EMPTY IV BAG (PVC) 1 EA IV SCH (12:15)
[2018-01-17] MEDS ORDERED: fentaNYL INJECTION 100 MCG/2 ML AMP IVP PRN (13:15)
[2018-01-17] MEDS ORDERED: fentaNYL INJECTION 100 MCG/2 ML AMP ONE (15:32)
[2018-01-17] MEDS: fentaNYL INJECTION 100 MCG/2 ML AMP IVP PRN ×2 (15:40→21:22)
[2018-01-17] MEDS: ARTIFICAL TEARS 0.4 ML UNIT DOSE (REFRESH PLUS) OU PRN ×2 (15:49→19:08)
[2018-01-17] MEDS: LATANOPROST 0.005% (XALATAN) OPHTH SOLN 2.5 ML OU SCH (19:27)
[2018-01-17] MEDS: FAMOTIDINE 20 MG (PEPCID) TABLET PO SCH (19:27)
[2018-01-17] MEDS: POLYETHYLENE GLYCOL 17 GM (MIRALAX) PACK PO SCH (19:27)
[2018-01-18] MEDS: SUCRALFATE 1 GM (CARAFATE) TAB PO SCH ×4 (03:55→19:46)
[2018-01-18] MEDS: fentaNYL INJECTION 100 MCG/2 ML AMP IVP PRN ×6 (05:51→21:32)
[2018-01-18] MEDS: LEVOTHYROXINE 100 MCG (LEVOTHROID) TAB PO SCH (09:32)
--- NOTE | 2018-01-18 14:04 | Progress Note-Hospitalist ---
Subjective HPI/CC On Admission Date Seen by Provider: January 18, 2018 Time Seen by Provider: 11:00 This is a delightful 82-year-old white female who presents to the emergency room with increased weakness and inability to ambulate of new onset. She has a recent diagnosis of pancreatic cancer and has been undergoing chemotherapy for palliative treatment, with the last treatment about a week ago. The increased weakness has been since she had the chemotherapy about a week ago and it is become so severe that she is almost unable to ambulate without assistance. She has not had increased shortness of breath or any accompanying symptoms Even with a decreased dose she has become very weak and has decided to not pursue any further chemotherapy; that she is ready to go meet her Lord. She came into the emergency room in septic shock and has been on pressors overnight and already had a dose of his Zosyn and vancomycin. The patient's blood pressure has stabilized on pressors but as soon as they have been held her blood pressure drops back into the systolic of 70s. At the time of my interview this morning the patient complains primarily of GERD. She is awake and alert and a wonderful historian. She notes that she has had trouble with urinary tract infections in the past. She notes that overall she feels fairly comfortable for a woman that is dying Subjective/Events-last exam Patient currently on comfort care Family at the bedside He denies any pain when she receives her pain medication Overall no current issues. Review of Systems General: Fatigue, Malaise Gastrointestinal: Abdominal Pain Objective Exam Vital Signs Vital Signs Date Time Temp Pulse Resp B/P (MAP) Pulse Ox O2 Delivery O2 Flow Rate FiO2 01/17/18 21:00 Room Air 01/17/18 21:00 16 01/17/18 16:11 2.00 01/14/18 16:03 98 01/13/18 14:00 100 102/61 (75) 01/12/18 12:19 98.3 Capillary Refill : Greater Than 3 SecondsLess Than 3 Seconds General Appearance: No Apparent Distress, WD/WN, Chronically ill Neurologic/Psychiatric: Alert, Oriented x3, No Motor/Sensory Deficits, Normal Mood/Affect Results/Procedures Lab Patient resulted labs reviewed. Imaging: Reviewed Imaging Report Assessment/Plan Assessment and Plan Assess & Plan/Chief Complaint Assessment: Pancreatic cancer now on comfort care end-of-life status Plan: Maintain comfort care protocol DO NOT RESUSCITATE Critical Care Critical Care: Critically Ill Patient Clinical Quality Measures DVT/VTE Risk/Contraindication: VTE Addressed: Yes Risk Factor Score Per Nursin RFS Level Per Nursing on Admit: 4+=Very High DVT/VTE Prophylaxis Comfirm.Dx Pharmacological not ordered: Cancer-Active Urinary Catheter-Non SCIP Pts: Reason for Catheter Continuanc: Immobility ARMANDO LEWIS DO January 18, 2018 14:03
[2018-01-18] MEDS: LATANOPROST 0.005% (XALATAN) OPHTH SOLN 2.5 ML OU SCH (19:46)
[2018-01-18] MEDS: POLYETHYLENE GLYCOL 17 GM (MIRALAX) PACK PO SCH (19:46)
[2018-01-18] MEDS: FAMOTIDINE 20 MG (PEPCID) TABLET PO SCH (19:46)
[2018-01-19] MEDS: SUCRALFATE 1 GM (CARAFATE) TAB PO SCH ×2 (05:18→08:35)
[2018-01-19] MEDS: LEVOTHYROXINE 100 MCG (LEVOTHROID) TAB PO SCH (08:35)
--- NOTE | 2018-01-19 12:38 | Progress Note-Hospitalist ---
Subjective HPI/CC On Admission Date Seen by Provider: January 19, 2018 Time Seen by Provider: 10:30 This is a delightful 82-year-old white female who presents to the emergency room with increased weakness and inability to ambulate of new onset. She has a recent diagnosis of pancreatic cancer and has been undergoing chemotherapy for palliative treatment, with the last treatment about a week ago. The increased weakness has been since she had the chemotherapy about a week ago and it is become so severe that she is almost unable to ambulate without assistance. She has not had increased shortness of breath or any accompanying symptoms Even with a decreased dose she has become very weak and has decided to not pursue any further chemotherapy; that she is ready to go meet her Lord. She came into the emergency room in septic shock and has been on pressors overnight and already had a dose of his Zosyn and vancomycin. The patient's blood pressure has stabilized on pressors but as soon as they have been held her blood pressure drops back into the systolic of 70s. At the time of my interview this morning the patient complains primarily of GERD. She is awake and alert and a wonderful historian. She notes that she has had trouble with urinary tract infections in the past. She notes that overall she feels fairly comfortable for a woman that is dying Subjective/Events-last exam Patient having increased pain through the night and was on morphine and I tried to increase the SIGN MAINTENANCE orders for that but that was not successful so we have changed to a Dilaudid SIGN MAINTENANCE for opioid tolerant to increase the dose for the severe pain she was experiencing. Family at the bedside Very appreciative of all the care she has had here at the hospital Will continue monitoring closely for additional pain control changes. Review of Systems Gastrointestinal: Nausea, Abdominal Pain Objective Exam Vital Signs Vital Signs Date Time Temp Pulse Resp B/P (MAP) Pulse Ox O2 Delivery O2 Flow Rate FiO2 01/18/18 21:00 Room Air 01/18/18 21:00 16 01/17/18 16:11 2.00 01/14/18 16:03 98 01/13/18 14:00 100 102/61 (75) Capillary Refill : Greater Than 3 SecondsLess Than 3 Seconds General Appearance: No Apparent Distress, WD/WN, Chronically ill, Other ( appears more declined today) Respiratory: Lungs Clear, Normal Breath Sounds Cardiovascular: Regular Rate, Rhythm, No Edema Neurologic/Psychiatric: Alert, Oriented x3, Depressed Affect Results/Procedures Lab Patient resulted labs reviewed. Imaging: Reviewed Imaging Report Assessment/Plan Assessment and Plan Assess & Plan/Chief Complaint Assessment: Pancreatic cancer now on comfort care end-of-life status Plan: Maintain comfort care protocol DO NOT RESUSCITATE Change to Dilaudid SIGN MAINTENANCE Critical Care Critical Care: Critically Ill Patient Diagnosis/Problems Diagnosis/Problems (1) Need for comfort care Status: Acute (2) End of life care Status: Acute (3) Abdominal pain Status: Acute Qualifiers: Abdominal location: generalized Qualified Codes: R10.84 - Generalized abdominal pain (4) Pancreatic cancer Status: Chronic Qualifiers: Pancreatic malignancy location: unspecified Qualified Codes: C25.9 - Malignant neoplasm of pancreas, unspecified Clinical Quality Measures DVT/VTE Risk/Contraindication: VTE Addressed: Yes Risk Factor Score Per Nursin RFS Level Per Nursing on Admit: 4+=Very High DVT/VTE Prophylaxis Comfirm.Dx Pharmacological not ordered: Cancer-Active Urinary Catheter-Non SCIP Pts: Reason for Catheter Continuanc: Immobility ARMANDO LEWIS DO January 19, 2018 12:38
[2018-01-19] MEDS ORDERED: HYDROmorphone PF INJECTION 10 MG in NS (IVPB) 50 ML IV SCH (13:45)
[2018-01-19] MEDS: [UNRECOGNIZED DRUG - OTHER] IV SCH ×2 (14:46)
[2018-01-19] MEDS: NS IV SCH ×2 (14:46)
[2018-01-19] MEDS: LATANOPROST 0.005% (XALATAN) OPHTH SOLN 2.5 ML OU SCH (21:02)
--- NOTE | 2018-01-20 12:16 | Progress Note-Hospitalist ---
Subjective HPI/CC On Admission Date Seen by Provider: January 20, 2018 Time Seen by Provider: 11:00 This is a delightful 82-year-old white female who presents to the emergency room with increased weakness and inability to ambulate of new onset. She has a recent diagnosis of pancreatic cancer and has been undergoing chemotherapy for palliative treatment, with the last treatment about a week ago. The increased weakness has been since she had the chemotherapy about a week ago and it is become so severe that she is almost unable to ambulate without assistance. She has not had increased shortness of breath or any accompanying symptoms Even with a decreased dose she has become very weak and has decided to not pursue any further chemotherapy; that she is ready to go meet her Lord. She came into the emergency room in septic shock and has been on pressors overnight and already had a dose of his Zosyn and vancomycin. The patient's blood pressure has stabilized on pressors but as soon as they have been held her blood pressure drops back into the systolic of 70s. At the time of my interview this morning the patient complains primarily of GERD. She is awake and alert and a wonderful historian. She notes that she has had trouble with urinary tract infections in the past. She notes that overall she feels fairly comfortable for a woman that is dying Subjective/Events-last exam Dilaudid OIL AND GAS EXPLORATION TECHNICIAN is working much better for the patient so discontinue the fentanyl OIL AND GAS EXPLORATION TECHNICIAN yesterday Able to drink a milkshake and family is at the bedside Denies any other issues Review of Systems Gastrointestinal: Abdominal Pain Objective Exam Vital Signs Vital Signs Date Time Temp Pulse Resp B/P (MAP) Pulse Ox O2 Delivery O2 Flow Rate FiO2 01/20/18 09:00 Room Air 01/20/18 07:00 16 01/17/18 16:11 2.00 01/14/18 16:03 98 Capillary Refill : Less Than 3 SecondsLess Than 3 Seconds General Appearance: No Apparent Distress, WD/WN, Chronically ill Respiratory: Lungs Clear Cardiovascular: Regular Rate, Rhythm Results/Procedures Lab Patient resulted labs reviewed. Imaging: Reviewed Imaging Report Assessment/Plan Assessment and Plan Assess & Plan/Chief Complaint Assessment: Pancreatic cancer now on comfort care end-of-life status Plan: Maintain comfort care protocol DO NOT RESUSCITATE Maintain Dilaudid OIL AND GAS EXPLORATION TECHNICIAN Critical Care Critical Care: Critically Ill Patient Diagnosis/Problems Diagnosis/Problems (1) Need for comfort care Status: Acute (2) End of life care Status: Acute (3) Abdominal pain Status: Acute Qualifiers: Abdominal location: generalized Qualified Codes: R10.84 - Generalized abdominal pain (4) Pancreatic cancer Status: Chronic Qualifiers: Pancreatic malignancy location: unspecified Qualified Codes: C25.9 - Malignant neoplasm of pancreas, unspecified Clinical Quality Measures DVT/VTE Risk/Contraindication: VTE Addressed: Yes Risk Factor Score Per Nursin RFS Level Per Nursing on Admit: 4+=Very High DVT/VTE Prophylaxis Comfirm.Dx Pharmacological not ordered: Cancer-Active Urinary Catheter-Non SCIP Pts: Reason for Catheter Continuanc: Immobility ARMANDO LEWIS DO January 20, 2018 12:16
[2018-01-20] MEDS: LATANOPROST 0.005% (XALATAN) OPHTH SOLN 2.5 ML OU SCH (21:25)
[2018-01-21] MEDS: ARTIFICAL TEARS 0.4 ML UNIT DOSE (REFRESH PLUS) OU PRN (10:42)
--- NOTE | 2018-01-21 17:34 | Progress Note (SOAP) ---
Subjective Date Seen by Provider: January 21, 2018 Time Seen by Provider: 08:45 Subjective/Events-last exam Fwup sepsis, septic shock, pancreatic cancer. Groggy but awakens to answer questions. Now on dilaudid NO BAKE MOLDER. Objective Exam Vital Signs Date Time Temp Pulse Resp B/P (MAP) Pulse Ox O2 Delivery O2 Flow Rate FiO2 01/21/18 08:00 Room Air 01/21/18 05:57 8 01/20/18 19:25 Room Air I & O 01/21/18 07:00 Intake Total 0 ml Output Total 250 ml Balance -250 ml Capillary Refill : Less Than 3 SecondsLess Than 3 Seconds General Appearance: Other (lethargic) Extremity: Pedal Edema Neurologic/Psychiatric: Motor Weakness Skin: Pallor Results Lab Microbiology 01/10/18 Blood Culture - Final, Complete No growth 01/11/18 Urine Culture - Final, Complete Yeast species Assessment/Plan Assessment/Plan Assess & Plan/Chief Complaint 1. Sepsis/Septic Shock--comfort care, may need NH or home with hospice, continue dilaudid NO BAKE MOLDER 2. Pancreatic Cancer--comfort care Clinical Quality Measures DVT/VTE Risk/Contraindication: VTE Addressed: Yes Risk Factor Score Per Nursin RFS Level Per Nursing on Admit: 4+=Very High DVT/VTE Prophylaxis Comfirm.Dx Pharmacological not ordered: Cancer-Active Urinary Catheter-Non SCIP Pts: Reason for Catheter Continuanc: Immobility DARRELL GONSALEZ DO January 21, 2018 5:34 pm
[2018-01-21] MEDS: [UNRECOGNIZED DRUG - OTHER] IV SCH ×2 (18:04)
[2018-01-21] MEDS: NS IV SCH ×2 (18:04)
[2018-01-21] MEDS: LATANOPROST 0.005% (XALATAN) OPHTH SOLN 2.5 ML OU SCH (20:43)
[2018-01-21] MEDS: LORazepam INJ 2 MG/ML (ATIVAN) VIAL IVP PRN (23:01)
[2018-01-22] MEDS: LATANOPROST 0.005% (XALATAN) OPHTH SOLN 2.5 ML OU SCH (19:52)
--- NOTE | 2018-01-23 12:47 | Progress Note (SOAP) ---
Subjective Date Seen by Provider: January 22, 2018 Time Seen by Provider: 12:30 Subjective/Events-last exam Fwup sepsis, septic shock, pancreatic cancer. More agonal respirations and unresponsive today. Objective Exam Vital Signs Date Time Temp Pulse Resp B/P (MAP) Pulse Ox O2 Delivery O2 Flow Rate FiO2 01/23/18 07:45 Room Air 01/23/18 06:00 8 01/22/18 20:00 Room Air 01/22/18 18:19 11 I & O 01/23/18 06:59 Intake Total 240 ml Output Total 575 ml Balance -335 ml Capillary Refill : Less Than 3 SecondsLess Than 3 Seconds General Appearance: Moderate Distress Respiratory: Respiratory Distress Cardiovascular: Regular Rate, Rhythm Neurologic/Psychiatric: Other (unresponsive) Results Lab Microbiology 01/10/18 Blood Culture - Final, Complete No growth 01/11/18 Urine Culture - Final, Complete Yeast species Assessment/Plan Assessment/Plan Assess & Plan/Chief Complaint 1. Sepsis/Septic Shock--comfort care, did discuss with family that may need DC plans with hospice but patient status has worsened today 2. Pancreatic Cancer--comfort care Clinical Quality Measures DVT/VTE Risk/Contraindication: VTE Addressed: Yes Risk Factor Score Per Nursin RFS Level Per Nursing on Admit: 4+=Very High DVT/VTE Prophylaxis Comfirm.Dx Pharmacological not ordered: Cancer-Active Urinary Catheter-Non SCIP Pts: Reason for Catheter Continuanc: Immobility DARRELL GONSALEZ DO January 23, 2018 12:47 pm
--- NOTE | 2018-01-23 12:49 | Progress Note (SOAP) ---
Subjective Date Seen by Provider: January 23, 2018 Time Seen by Provider: 12:47 Subjective/Events-last exam Fwup sepsis, septic shock, pancreatic cancer. Still with agonal respirations but is awakening and smiling today and even able to answer with a weak sentence. Objective Exam Vital Signs Date Time Temp Pulse Resp B/P (MAP) Pulse Ox O2 Delivery O2 Flow Rate FiO2 01/23/18 07:45 Room Air 01/23/18 06:00 8 01/22/18 20:00 Room Air 01/22/18 18:19 11 I & O 01/23/18 06:59 Intake Total 240 ml Output Total 575 ml Balance -335 ml Capillary Refill : Less Than 3 SecondsLess Than 3 Seconds General Appearance: Moderate Distress Respiratory: Respiratory Distress Cardiovascular: Regular Rate, Rhythm Extremity: Pedal Edema Neurologic/Psychiatric: Other (lethargic) Results Lab Microbiology 01/10/18 Blood Culture - Final, Complete No growth 01/11/18 Urine Culture - Final, Complete Yeast species Assessment/Plan Assessment/Plan Assess & Plan/Chief Complaint 1. Sepsis/Septic Shock--comfort care, will start DC plans with hospice with dilaudid BATTERY HAND to home 2. Pancreatic Cancer--comfort care Clinical Quality Measures DVT/VTE Risk/Contraindication: VTE Addressed: Yes Risk Factor Score Per Nursin RFS Level Per Nursing on Admit: 4+=Very High DVT/VTE Prophylaxis Comfirm.Dx Pharmacological not ordered: Cancer-Active Urinary Catheter-Non SCIP Pts: Reason for Catheter Continuanc: Immobility DARRELL GONSALEZ DO January 23, 2018 12:49 pm
[2018-01-23] MEDS ORDERED: HYDR1LIQ3 PO (13:02)
[2018-01-23] MEDS: [UNRECOGNIZED DRUG - OTHER] IV SCH ×2 (15:11)
[2018-01-23] MEDS: NS IV SCH ×2 (15:11)
[2018-01-23] MEDS: LATANOPROST 0.005% (XALATAN) OPHTH SOLN 2.5 ML OU SCH (21:02)
[2018-01-24] MEDS: ONDANSETRON 4 MG/2 ML (SDV) Z0FRAN IVP PRN (00:28)
[2018-01-24] MEDS ORDERED: NS IV 1000 ML 1,000 ML IV SCH (08:30)
[2018-01-24] MEDS ORDERED: SALI45SP MM (13:46)
[2018-01-24] MEDS ORDERED: LORA2ORA5 PO (13:46)
[2018-01-24] MEDS ORDERED: CARB1DRO OU (13:46)
[2018-01-24] MEDS ORDERED: MINE3.5O29 OU (13:46)
[2018-01-24] MEDS ORDERED: ONDA4TAB8 SL (13:46)
--- NOTE | 2018-01-24 13:55 | Discharge Summary ---
Diagnosis/Chief Complaint Date of Admission January 11, 2018 at 2:09 am Date of Discharge Discharge Date: Jan 24, 2018 Discharge Diagnosis 1. Septic Shock 2. Pancreatic Cancer 3. Comfort Care Discharge Summary Hospital Course Hospital Course This is an 82 year old female originally admitted to the ICU with sepsis. She was placed on IV pressors and sepsis protocol with IV antibiotics. She has known pancreatic cancer and has tried 2 doses of chemo but has not tolerated the treatment and decided that she did not want to pursue any further treatment and that she would like to go on comfort care and be allowed to pass peacefully. She was transferred to the medical floor and placed on comfort care. Initially her pain was not controlled but she was eventually switched to a dilaudid INTERVIEWING CLERK which conrolled her pain well. She continued to decline medically but was still easily awakening and it was decided to look into discharge to her daughter's home with hospice and stay on the dilaudid INTERVIEWING CLERK so she could pass in the comfort of a home setting. [facility] was chosen and the patient will be transported via ambulance. All equipment has been set up at home including the INTERVIEWING CLERK pump. Procedures None. Discharge Physical Examination Allergies: Coded Allergies: nut - unspecified (Verified Allergy, Severe, HIVES, EDEMA, 03/04/17) Vitals & I&Os Vital Signs Date Time Temp Pulse Resp B/P (MAP) Pulse Ox O2 Delivery O2 Flow Rate FiO2 01/24/18 06:47 8 01/23/18 20:00 Room Air 01/23/18 15:11 98.3 General Appearance: Moderate Distress Respiratory: Other (rales) Cardiovascular: Regular Rate Extremities: Other (edematous) Psych/Mental Status: Other (lethargic) Discharge Home Medications Reviewed and agree with Discharge Medication list on patient's Discharge Instruction sheet Instructions to Patient/Family Please see electronic discharge instructions given to patient. Clinical Quality Measures DVT/VTE Risk/Contraindication: VTE Addressed: Yes Risk Factor Score Per Nursin RFS Level Per Nursing on Admit: 4+=Very High DVT/VTE Prophylaxis Comfirm.Dx Pharmacological not ordered: Cancer-Active Urinary Catheter-Non SCIP Pts: Reason for Catheter Continuanc: Immobility DARRELL GONSALEZ DO Jan 24, 2018 1:55 pm
== END 2018-01-24 14:50 | disposition hospice, home (50) | DRG 871 ==
LOC: EDUNIT# 22:30 → ER 22:31 → ICU 01-11 02:09 → 4TH 01-13 14:20
PROVIDERS: ADMIT Internal Medicine; ATTEND Internal Medicine
DX: A41.9 Sepsis, unspecified organism (principal); R65.21 Severe sepsis with septic shock; N39.0 Urinary tract infection, site not specified; D61.810 Antineoplastic chemotherapy induced pancytopenia; C25.9 Malignant neoplasm of pancreas, unspecified; D61.818 Other pancytopenia; N17.9 Acute kidney failure, unspecified; Z66 Do not resuscitate; Z51.5 Encounter for palliative care; E87.1 Hypo-osmolality and hyponatremia; K76.89 Other specified diseases of liver; Z86.79 Personal history of other diseases of the circulatory system; K21.9 Gastro-esophageal reflux disease without esophagitis; I48.91 Unspecified atrial fibrillation; R01.1 Cardiac murmur, unspecified; I10 Essential (primary) hypertension; E03.9 Hypothyroidism, unspecified; H40.9 Unspecified glaucoma; H91.90 Unspecified hearing loss, unspecified ear
CPT/HCPCS: 36415; 51702; 71045; 80048; 80053; 80202; 81000; 83605; 83735; 84100; 85025; 85610; 87040; 87088; 94640; 96361; 96365; 96375